=== PATIENT | female | born 1960 | race African-American/Black ===

== ENCOUNTER 2017-08-16 19:55 | Inpatient (IN) | payer MEDICARE, MEDICAID ==
[2017-08-16 21:47] LABS: #Basophils 0.1 thou/uL (0.0-0.2); #Eosinphils 0.2 thou/uL (0.0-0.7); #Lymphocytes 2.8 thou/uL (1.20-3.40); #Monocytes 1.4 thou/uL (0.11-0.59); #Neutrophils 6.9 thou/uL (1.40-6.50); %Basophils 0.5 % (0.0-1.0); %Eosinophils 1.5 % (0.0-10.0); %Lymphocytes 24.4 % (21.0-51.0); %Monocytes 12.3 % (0.0-10.0); %Neutrophils 61.3 % (42.0-75.0); Hemoglobin 9.5 g/dL (12.0-16.0); Hypochromia SLIGHT = 6-15 cells (100X) (0-5/hpf); MDiff Complete? YES; Mean Corpuscular HGB CONC 31.1 g/dL (32.0-36.0); Mean Platelet Volume 6.7 fL (7.4-10.4); Microcytosis SLIGHT = 6-15 cells (100X) (0-5/hpf); PLT Morphology Comment Appears Increased; Platelet Count 434 thou/uL (130-400); Red Blood Cell (RBC) Count 4.14 mill/uL (4.20-5.40); White Blood Cell (WBC) Count 11.3 thou/uL (4.8-10.8)
[2017-08-16 21:49] LABS: ALT (SGPT) Less than 7 U/L (8-55); AST (SGOT) 10 U/L (5-34); Albumin 3.3 g/dL (3.5-5.0); Alkaline Phosphatase 60 U/L (40-150); Anion Gap 18 mmol/L (10-20); BUN (Urea Nitrogen) 28 mg/dL (9.8-20.1); Bilirubin, Total 0.3 mg/dL (0.2-1.2); Calc. Creatinine Clearance 0 mL/min (70-130); Calcium 10.2 mg/dL (7.8-10.44); Carbon Dioxide 26 mmol/L (22-29); Chloride 96 mmol/L (98-107); Estimated GFR-MDRD 9; Globulin 5.3 g/dL (2.4-3.5); Glucose 112 mg/dL (70-105); Potassium 3.7 mmol/L (3.5-5.1); Protein, Total 8.6 g/dL (6.0-8.3); Sodium 136 mmol/L (136-145)
[2017-08-16 22:22] LABS: Bilirubin Negative (Negative); Blood, Urine Large (Negative); Clarity TURBID (Clear); Glucose, Urine (Dipstick) Negative (Negative); Leukocyte Large (Negative); Nitrite Negative (Negative); Protein, Urine (Dipstick) > or equal to 300 mg/dL (Neg-Trace); Specific Gravity, Urine 1.025 (1.002-1.036)
[2017-08-16 22:24] LABS: Bacteria/HPF 4+ HPF (None Seen)
[2017-08-16 22:26] LABS: Pathc Cast-AUWi Flag 618.96 (0-2.49); Yeast-AUWi Flag 1888.7 (0-25.0)
[2017-08-16 22:27] LABS: RBC/HPF GREATER THAN 50-TNTC HPF (0-3)
[2017-08-16 22:28] LABS: Hyaline Casts/LPF 4-6 HYALINE CAST LPF (0-3 Hyaline)
[2017-08-17] MEDS ORDERED: cloNIDine 0.1 MG TAB ONE (00:44)
[2017-08-17] MEDS ORDERED: cefTRIAXone\\ROCEPHIN 2 GM in Sodium Chloride 0.9% 100 ML IVPB SCH (00:45)
[2017-08-17] MEDS ORDERED: cefTRIAXone\\ROCEPHIN 1 GM, Syringe 0.4 ML in Sterile Water 9.6 ML SLOW IVP SCH ×2 (08:45→12:00)
--- NOTE | 2017-08-17 09:13 | CON ---
DATE OF CONSULTATION: 08/17/2017 HISTORY OF PRESENT ILLNESS: Ms. Amaro is a 56-year-old black female with ESRD, on maintenance hemod ialysis, and admitted for buttock pain She was found to have a ? abscess on that area. She is admit anni for further management. We are now being consulted for maintenance hemodialysis. I am at the [facility] now supervising her hemodialysis. Fluid removal is being done as tolerated. REVIEW OF SYSTEMS: No chest pain. Denies any fever or chills. No nausea, no vomiting, no diarrhea, no cough. No hematochezia. No joint pains, positive for buttock pain, no diplopia. No tremors, no asterixis. No hematochezia, no melena, no hematemesis. PAST MEDICAL HISTORY: 1. ESRD - on maintenance hemodialysis. 2. Hypertension. 3. ? Diabetes mellitus. 4. Hyperlipidemia. PAST SURGICAL HISTORY: 1. Status post hysterectomy. 2. Status post bilateral tubal ligation. 3. Status post hysterectomy. 4. Status post breast biopsy. 5. Status post AV fistula placement. 6. Status post cuffed dialysis catheter placement. SOCIAL HISTORY: The patient lives with her nephew and niece. Two children, both incarcerated. [place]. 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 No history of smoking, no alcohol intake. No IV drug abuse. Education; h igh school. Sedentary lifestyle. FAMILY HISTORY: Positive family history of ESRD. ALLERGIES: No known drug allergies. TRAUMA: None. IMMUNIZATIONS: Up to date. HOSPITALIZATIONS: Please see past medical history. MEDICATIONS: Lasix 20 mg p.r.n., losartan 25 mg once a day, vitamin D2 50,000 international units on ce a week. Ditropan 5 mg once a day, nifedipine 60 mg XL tab t.i.d., metoprolol succinate 50 mg once a day, Robaxin 500 mg p.r.n. PHYSICAL EXAMINATION: VITAL SIGNS: Blood pressure is noted at 205/98 - before BP meds, heart rate 83, respiratory rate 20, temperature 97.4, pulse ox 96%. GENERAL: Awake, alert, obese, comfortable. SKIN: Adequate turgor. HEENT: She has slightly pale conjunctivae, anicteric sclerae. NECK: No neck mass, no carotid bruits, no JVD. CHEST: No deformities. LUNGS: Clear breath sounds, no wheezing, no crackles. HEART: Normal sinus rhythm. No murmur, no gallops, no rubs. ABDOMEN: Globular, soft, nontender, no masses. EXTREMITIES: No edema, no deformities. NEUROLOGIC: Awake, oriented to 3 spheres. Moving all extremities. No tremors, no asterixis, no yumiko eli. Positive for ? of abscess/wound. LABORATORY: 08/16/2017 - Sodium 136, potassium 3.7, chloride 96, carbon dioxide 26, BUN 28, creatini ne 6.09, glucose 112, calcium is 10.2, albumin 3.3. White count 7.3, hemoglobin 9.5. ASSESSMENT AND PLAN: 1. End-stage renal disease, stable. We will continue current hemodialysis regimen. Fluid removal o nly as tolerated. Review of the last Kt/V suggests she is adequately dialyzed with the current dialy sis regimen. 2. Buttock abscess - on empiric IV antibiotics. Currently on ceftriaxone at 1 gram q.12h. I would suggest we decrease the ceftriaxone to 1 gram IV daily. Recheck base met and CBC in a.m.
[2017-08-17 10:27] VITALS: BMI 35.0
[2017-08-17 16:01] LABS: INR-International Normal Ratio 1.3
[2017-08-17] MEDS: Carvedilol 25 MG TAB PO SCH (17:12)
[2017-08-17] MEDS: Sevelamer Carbonate 800 MG TAB PO SCH (17:14)
[2017-08-17] MEDS: Warfarin Sodium 2.5 MG TAB PO SCH (17:14)
[2017-08-17] MEDS: Simvastatin 20 MG TAB PO SCH (20:51)
--- NOTE | 2017-08-17 22:56 | HP ---
DATE OF ADMISSION: 08/17/2017 REASON FOR ADMISSION/CHIEF COMPLAINT: Buttock pain. HISTORY OF PRESENT ILLNESS: Ms. Amaro is a 56-year-old -Citizen Of [place] female with past medical hi story of hypertension, end-stage renal disease, nonambulatory who came because of pain in the buttock area. The patient also says she developed pressure sores in the area few days ago. Pain is getting worse for the last few days. Pain is worse especially when she is lying on the back side. There is no history of any chest pain. No shortness of breath, no fever. The patient does have some abdomin al pain and increased urination and burning. The patient goes for dialysis 3 times a week and she cl aims she is taking her medications, but is not clear what she is taking. The patient was evaluated i n the ER, found to have urinary tract infection as well, and was started on Rocephin. The patient wa s also hypotensive. She is being admitted for further evaluation. PAST MEDICAL HISTORY: 1. Hypertension. 2. End-stage renal disease, on hemodialysis 3 times a week. 3. Noncompliant with medication. 4. History of cerebrovascular accident. 5. History of malignant hypertension in the family. PAST SURGICAL HISTORY: 1. Status post hysterectomy. 2. Status post cholecystectomy. 3. Status post breast biopsy. 4. Status post previous fistula placement. CURRENT MEDICATIONS: She is not clear what she is taking, but she is supposed to be on aspirin 81 mg daily, Coreg 25 b.i.d., Imdur 60 mg daily, Ditropan XL 5 mg daily, Renvela 2400 mg t.i.d., Zocor 20 mg daily, questionable whether she is on Coumadin 2.5 mg daily. ALLERGIES: No known drug allergies. FAMILY HISTORY: Nothing of interest. SOCIAL HISTORY: The patient lives with family. No history of smoking. No history of alcohol intake . REVIEW OF SYSTEMS: Cardiovascular: No chest pain. No shortness of breath. Respiratory: No fever or cough. Gastrointestinal: No nausea, vomiting. Has abdominal pain. Genitourinary: No dysuria o r hematuria. Central Nervous System: No headache. No dizziness. PHYSICAL EXAMINATION: GENERAL: The patient is alert, awake, oriented x2. VITAL SIGNS: Temperature 98, pulse 89, respirations 23, blood pressure 218/97. HEENT: Head is normocephalic, atraumatic. Pupils are equal and reactive to light. Nasopharynx is p oskar and dry. Hard and soft palate, no lesions seen. SKIN: Skin turgor decreased. NECK: Supple. No JVD. LUNGS: Bilateral air entry present. No rales, no rhonchi. HEART: S1, S2 regular. ABDOMEN: Soft. Tenderness in the area. No guarding, no rigidity. Bowel sounds present. RECTAL: Deferred. EXTREMITIES: Power 4/5 in both upper extremities, 2/5 in both lower extremities. Deep tendon reflex es 2+ bilaterally. Plantars downgoing. Sensory intact. LABORATORY AND X-RAY FINDINGS: CBC shows WBC 11, hemoglobin 9.5, hematocrit 30, platelets 434. [place] bolic panel: Sodium 136, potassium 3.7, chloride 96, CO2 of 10, BUN 28, creatinine 6, glucose 112. Urinalysis showed wbc greater than 50, bacteria 4+, rbc greater than 50. Chest x-ray not done. EKG shows normal sinus rhythm, no acute ST-T wave changes seen. ASSESSMENT: 1. Urinary tract infection, rule out sepsis. 2. Pressure ulcers in both buttocks, stage 2. 3. Hypertension, uncontrolled. 4. End-stage renal disease, on hemodialysis. 5. Anemia. 6. History of cerebrovascular accident. PLAN: 1. Vital signs q.4 hours. 2. Activity: As tolerated. 3. Allergies: NKDA. 4. Hep-Lock. 5. Rocephin 1 gram IV piggyback daily. 6. Continue home medications. 7. Hemodialysis. 8. Wound care team consult. 9. Physical therapy consult. 10. Echocardiogram.
[2017-08-18 05:09] LABS: #Basophils 0.1 thou/uL (0.0-0.2); #Eosinphils 0.2 thou/uL (0.0-0.7); #Lymphocytes 2.6 thou/uL (1.20-3.40); #Monocytes 1.3 thou/uL (0.11-0.59); #Neutrophils 5.5 thou/uL (1.40-6.50); %Basophils 0.6 % (0.0-1.0); %Eosinophils 1.6 % (0.0-10.0); %Lymphocytes 27.2 % (21.0-51.0); %Monocytes 13.8 % (0.0-10.0); %Neutrophils 56.9 % (42.0-75.0); Hemoglobin 8.5 g/dL (12.0-16.0); Mean Corpuscular HGB CONC 30.1 g/dL (32.0-36.0); Mean Corpuscular Hemoglobin 22.6 pg (27.0-31.0); Mean Corpuscular Volume 75.1 fl (81.0-99.0); Mean Platelet Volume 7.1 fL (7.4-10.4); Platelet Count 395 thou/uL (130-400); Red Blood Cell (RBC) Count 3.75 mill/uL (4.20-5.40); White Blood Cell (WBC) Count 9.6 thou/uL (4.8-10.8)
[2017-08-18 05:16] LABS: INR-International Normal Ratio 1.2; Prothrombin Time 15.6 SEC (12.0-14.7)
[2017-08-18 05:24] LABS: Anion Gap 16 mmol/L (10-20); BUN (Urea Nitrogen) 26 mg/dL (9.8-20.1); Calc. Creatinine Clearance 16 mL/min (70-130); Calcium 9.8 mg/dL (7.8-10.44); Carbon Dioxide 29 mmol/L (22-29); Chloride 95 mmol/L (98-107); Estimated GFR-MDRD 10; Glucose 99 mg/dL (70-105); Potassium 3.9 mmol/L (3.5-5.1); Sodium 136 mmol/L (136-145)
[2017-08-18] MEDS: Carvedilol 25 MG TAB PO SCH ×2 (08:07→18:04)
[2017-08-18] MEDS: Sevelamer Carbonate 800 MG TAB PO SCH ×3 (08:07→18:04)
[2017-08-18] MEDS: Aspirin 81 mg Enteric Coated Tablet PO SCH (08:08)
[2017-08-18] MEDS: cefTRIAXone\\ROCEPHIN 1 GM, Syringe 0.4 ML in Sterile Water 9.6 ML SLOW IVP SCH (11:10)
[2017-08-18] MEDS: Oxybutynin 5 MG TAB PO SCH (11:17)
[2017-08-18] MEDS: Warfarin Sodium 2.5 MG TAB PO SCH (18:07)
--- NOTE | 2017-08-18 19:03 | EKG ---
Test Reason : Blood Pressure : / mmHG Vent. Rate : 085 BPM Atrial Rate : 085 BPM P-R Int : 174 ms QRS Dur : 102 ms QT Int : 394 ms P-R-T Axes : 026 -06 114 degrees QTc Int : 468 ms Normal sinus rhythm Left ventricular hypertrophy with repolarization abnormality Abnormal ECG Confirmed by ARELIS MAYER, BHANU ([id number]), film editor SURYA SANCHEZ ([id number]) on 08/18/2017 7:02:34 PM Referred By: Confirmed By:BHANU INFANTE MD
[2017-08-18] MEDS: Simvastatin 20 MG TAB PO SCH (20:13)
[2017-08-19 04:45] LABS: INR-International Normal Ratio 1.2; Prothrombin Time 15.6 SEC (12.0-14.7)
[2017-08-19] MEDS: Sevelamer Carbonate 800 MG TAB PO SCH ×3 (09:23→17:30)
[2017-08-19] MEDS: Oxybutynin 5 MG TAB PO SCH (09:23)
[2017-08-19] MEDS: Carvedilol 25 MG TAB PO SCH ×2 (09:23→17:31)
[2017-08-19] MEDS: Aspirin 81 mg Enteric Coated Tablet PO SCH (09:23)
[2017-08-19] MEDS: cefTRIAXone\\ROCEPHIN 1 GM, Syringe 0.4 ML in Sterile Water 9.6 ML SLOW IVP SCH (09:35)
[2017-08-19] MEDS: Warfarin Sodium 2.5 MG TAB PO SCH (17:30)
[2017-08-19] MEDS: Simvastatin 20 MG TAB PO SCH (20:28)
[2017-08-20 05:04] LABS: #Eosinphils 0.2 thou/uL (0.0-0.7); #Lymphocytes 2.2 thou/uL (1.20-3.40); #Neutrophils 7.1 thou/uL (1.40-6.50); %Basophils 0.4 % (0.0-1.0); %Eosinophils 1.9 % (0.0-10.0); %Lymphocytes 21.1 % (21.0-51.0); %Monocytes 9.4 % (0.0-10.0); %Neutrophils 67.2 % (42.0-75.0); Hemoglobin 7.7 g/dL (12.0-16.0); Mean Corpuscular HGB CONC 31.2 g/dL (32.0-36.0); Mean Corpuscular Hemoglobin 22.5 pg (27.0-31.0); Mean Corpuscular Volume 72.3 fl (81.0-99.0); Mean Platelet Volume 6.8 fL (7.4-10.4); Platelet Count 381 thou/uL (130-400); RBC Distribution Width 13.8 % (11.5-14.5); White Blood Cell (WBC) Count 10.5 thou/uL (4.8-10.8)
[2017-08-20 05:08] LABS: INR-International Normal Ratio 1.2; Prothrombin Time 15.2 SEC (12.0-14.7)
[2017-08-20 05:18] LABS: Anion Gap 16 mmol/L (10-20); BUN (Urea Nitrogen) 49 mg/dL (9.8-20.1); Calc. Creatinine Clearance 10 mL/min (70-130); Calcium 9.3 mg/dL (7.8-10.44); Carbon Dioxide 27 mmol/L (22-29); Chloride 94 mmol/L (98-107); Estimated GFR-MDRD 6; Glucose 115 mg/dL (70-105); Potassium 3.4 mmol/L (3.5-5.1); Sodium 134 mmol/L (136-145)
[2017-08-20 07:15] VITALS: BP 145/68; TEMP 99
[2017-08-20] MEDS: Carvedilol 25 MG TAB PO SCH (07:15)
[2017-08-20] MEDS: Aspirin 81 mg Enteric Coated Tablet PO SCH (07:15)
[2017-08-20] MEDS: Oxybutynin 5 MG TAB PO SCH (07:15)
[2017-08-20] MEDS: Sevelamer Carbonate 800 MG TAB PO SCH ×2 (07:15→14:42)
[2017-08-20] MEDS: cefTRIAXone\\ROCEPHIN 1 GM, Syringe 0.4 ML in Sterile Water 9.6 ML SLOW IVP SCH (10:05)
[2017-08-20] MEDS ORDERED: cefTRIAXone\\ROCEPHIN 1 GM, Syringe 0.4 ML in Sterile Water 9.6 ML SLOW IVP SCH (12:00)
--- NOTE | 2017-08-20 13:25 | PRG ---
DATE OF SERVICE: 08/20/2017 RENAL MEDICINE SUBJECTIVE: Ms. Amaro is a 56-year-old black female with ESRD and currently on maintenance hemodial ysis. I am at the bedside supervising her dialysis. She is tolerating said treatment. No other com plaints, no chest pain or shortness of breath. PHYSICAL EXAMINATION: VITAL SIGNS: Blood pressure 145/68, heart rate 79, respiratory rate 18, temperature 99, pulse ox 95% . GENERAL: Awake, alert, comfortable, not in distress. SKIN: Adequate turgor. HEENT: Slightly pale conjunctivae, anicteric sclerae. NECK: No neck mass, no carotid bruits, no JVD. CHEST: No deformities. LUNGS: Clear breath sounds. HEART: Normal sinus rhythm. No murmur, no gallops, no rubs. ABDOMEN: Globular, soft, nontender, no masses. EXTREMITIES: No edema, no deformities. MEDICATIONS: Of 08/20/2014 reviewed. LABORATORY DATA: 08/20/2017, white count 10.5, hemoglobin 7.7. Sodium 134, potassium 3.4, chloride 94, carbon dioxide 27, BUN 49, creatinine 8.43, glucose 115, calcium 9.3. ASSESSMENT AND PLAN: 1. Mild hyperkalemia, adjust potassium in the dialysis bath. 2. Anemia. Start Epogen 7500 units subcutaneously every week. 3. End-stage renal disease, stable. Tolerating current hemodialysis regimen. Continue Sunday, esday, Sunday hemodialysis. Overall, agree with current management. Patient for possible renal transplant.
[2017-08-20] MEDS ORDERED: Epoetin (ESRD) 20,000 UNITS/ML SC SCH (14:00)
== END 2017-08-20 16:46 | DRG 592 ==
LOC: ERS 19:55 → T4-B 08-17 01:34 → OBSVTOIN 08-17 15:09
PROVIDERS: ADMIT Internal Medicine; ATTEND Internal Medicine
PROC: 5A1D70Z Performance of Urinary Filtration, Intermittent, Less than 6 Hours Per Day (ICD-10-PCS; principal; 2017-08-17)
PROC: 5A1D70Z Performance of Urinary Filtration, Intermittent, Less than 6 Hours Per Day (ICD-10-PCS; 2017-08-20)
DX: L89.312 Pressure ulcer of right buttock, stage 2 (principal); N18.6 End stage renal disease; L89.322 Pressure ulcer of left buttock, stage 2; I12.0 Hypertensive chronic kidney disease with stage 5 chronic kidney disease or end stage renal disease; E87.5 Hyperkalemia; N39.0 Urinary tract infection, site not specified; L02.31 Cutaneous abscess of buttock; Z91.14 Patient's other noncompliance with medication regimen; Z86.73 Personal history of transient ischemic attack (TIA), and cerebral infarction without residual deficits; Z79.82 Long term (current) use of aspirin; Z99.2 Dependence on renal dialysis; I25.2 Old myocardial infarction; E78.5 Hyperlipidemia, unspecified; F32.9 Major depressive disorder, single episode, unspecified; D63.1 Anemia in chronic kidney disease
CPT/HCPCS: 36415; 51701; 80048; 80053; 81003; 81015; 84443; 85025; 85610; 87077; 87086; 87186; 90935; 93005; 93306; 94760; 96365; A4216; A4353; G0257; G8978-GP-CM; G8979-GP-CK; J0696; J7050; Q4081

== ENCOUNTER 2017-09-12 18:24 | Inpatient (IN) | payer MEDICAID, MEDICARE ==
--- NOTE | 2017-09-12 20:32 | CT ---
CT HEAD WITHOUT CONTRAST: 09/12/17 Multiple axial tomograms obtained through the head without IV enhancement. HISTORY: Mental status change. Comparison made to prior CT head dated 10/30/12 and an MRI of brain dated 11/01/12. Those exams reveal diffuse white matter abnormalities seen throughout both cerebral hemispheres with edema. Vascular etiology such as PRES was considered at that time. There have been no interval scans since those studies at this institution. On today's exam, the ventricles have normal size and position. There is bilateral white matter hypode nsity which probably represents sequela of the prior process. This has the appearance of chronic whit e matter change possibly ischemic are related to the prior insult. There is no evidence of acute hemo rrhage or mass. No evidence of acute cortical infarct. IMPRESSION: Bilateral white matter hypodensity which is probably chronic as described above. No evidence of acute process identified. POS: AGW
[2017-09-12 21:01] LABS: #Eosinphils 0.1 thou/uL (0.0-0.7); #Lymphocytes 2.1 thou/uL (1.20-3.40); #Monocytes 1.6 thou/uL (0.11-0.59); #Neutrophils 7.4 thou/uL (1.40-6.50); %Basophils 0.2 % (0.0-1.0); %Eosinophils 0.7 % (0.0-10.0); %Lymphocytes 18.7 % (21.0-51.0); %Monocytes 14.6 % (0.0-10.0); %Neutrophils 65.8 % (42.0-75.0); Hemoglobin 8.7 g/dL (12.0-16.0); Mean Corpuscular Volume 76.7 fl (81.0-99.0); Mean Platelet Volume 7.2 fL (7.4-10.4); Platelet Count 430 thou/uL (130-400); RBC Distribution Width 17.1 % (11.5-14.5); Red Blood Cell (RBC) Count 3.77 mill/uL (4.20-5.40); White Blood Cell (WBC) Count 11.2 thou/uL (4.8-10.8)
[2017-09-12 21:06] LABS: PTT 36.7 SEC (22.9-36.1)
[2017-09-12 21:10] LABS: INR-International Normal Ratio 1.4; Prothrombin Time 17.4 SEC (12.0-14.7)
[2017-09-12 21:18] LABS: ALT (SGPT) 9 U/L (8-55); AST (SGOT) 11 U/L (5-34); Albumin 3.4 g/dL (3.5-5.0); Alkaline Phosphatase 83 U/L (40-150); Anion Gap 17 mmol/L (10-20); BUN (Urea Nitrogen) 16 mg/dL (9.8-20.1); Bilirubin, Total 0.5 mg/dL (0.2-1.2); Calc. Creatinine Clearance 0 mL/min (70-130); Calcium 10.1 mg/dL (7.8-10.44); Carbon Dioxide 27 mmol/L (22-29); Chloride 96 mmol/L (98-107); Estimated GFR-MDRD 11; Globulin 4.9 g/dL (2.4-3.5); Glucose 107 mg/dL (70-105); Potassium 3.7 mmol/L (3.5-5.1); Protein, Total 8.3 g/dL (6.0-8.3); Sodium 136 mmol/L (136-145)
[2017-09-12] MEDS ORDERED: Pantoprazole 40 MG VIAL ONE (23:44)
[2017-09-13] MEDS ORDERED: Dextrose 5 % And 0.9 % NaCl 1,000 ML IV SCH (01:15)
[2017-09-13 10:45] LABS: Bilirubin Moderate (Negative); Blood, Urine Large (Negative); Glucose, Urine (Dipstick) Negative (Negative); Leukocyte Large (Negative); Nitrite Positive (Negative); Protein, Urine (Dipstick) > or equal to 300 mg/dL (Neg-Trace); Urobilinogen 0.2 mg/dL (0.2-1.0)
[2017-09-13 10:48] LABS: Clarity Opaque (Clear)
[2017-09-13 10:53] LABS: Bacteria/HPF 4+ HPF (None Seen); RBC/HPF GREATER THAN 50-TNTC HPF (0-3); Specific Gravity, Urine 1.023 (1.002-1.036); Squamous Epithelial 0-3 HPF (0-3)
[2017-09-13 10:54] LABS: Hyaline Casts/LPF NONE SEEN LPF (0-3 Hyaline)
[2017-09-13] MEDS: cefTRIAXone\\ROCEPHIN 2 GM in Sodium Chloride 0.9% 100 ML IVPB SCH (11:33)
[2017-09-13] MEDS ORDERED: GoLYTELY 4,000 ml Bottle PO SCH (17:00)
--- NOTE | 2017-09-13 17:01 | CON ---
DATE OF CONSULTATION: 09/13/2017 CONSULTING PHYSICIAN: Law Parish M.D. REQUESTING PHYSICIAN: Jamie Torres M.D. REASON FOR CONSULTATION: The need for maintenance hemodialysis and complicated urinary tract infecti on. IMPRESSION: 1. End-stage renal disease, on hemodialysis Sunday, Sunday, Sunday. 2. Complicated urinary tract infection, possibly with colovesical fistula. 3. Generalized weakness in the context of #2. PLAN: 1. Broad spectrum antibiotics. 2. Urology consultation to evaluate the urogenital anatomy for any potential structural reason why t his patient keep having recurrent urinary tract infections including but not limited to possible colo vesical fistula. 3. Renal replacement therapy (hemodialysis) per patient's schedule. No emergent indication for hemo dialysis today. HISTORY OF PRESENT ILLNESS: This is a 57-year-old female patient who has end-stage renal disease, he modialysis dependent on a Sunday, Sunday, Sunday, who presented here with weakness. Clinical eval uation revealed the presence of another severe urinary tract infection. Of note, the patient just la st month was treated for severe urinary tract infection with broad spectrum antibiotics and re-presen anni here again obvious compliant significant for urinary tract infection. The urine sample seems to be very gross with possibility of contamination. Digestive tract material raising the possibility of a colovesical fistula. PAST MEDICAL HISTORY: End-stage renal disease, hemodialysis dependent, hypertension, diabetes, strok e, dyslipidemia. MEDICATIONS: Reviewed and as documented on [facility]. ALLERGIES: No known drug allergies. FAMILY HISTORY: None related to presenting illness. SOCIAL HISTORY: Denies alcohol, tobacco or illicit drug use. REVIEW OF SYSTEMS: As documented in the body of the history. All the other systems reviewed and fou nd not to be significantly related to presenting illness. PHYSICAL EXAMINATION: GENERAL: The patient was found to be ill-looking noted with the following. VITAL SIGNS: Afebrile with temperature 98.9, pulse 81, respiration rate of 15, O2 sat 98% with blood pressure 159/72. HEENT: Unremarkable with moist oral mucosa. Neck is supple. No conjunctival injection or icterus. CARDIOVASCULAR SYSTEM: First and second heart sounds were heard. RESPIRATORY SYSTEM: Clear to auscultation. DIGESTIVE SYSTEM: Revealed a benign abdomen with positive bowel sounds. EXTREMITIES: No peripheral edema. SKIN: No new gross rash. LYMPHATICS: No peripheral lymphadenopathy. SUMMARY: In summary, this 57-year-old female patient with end-stage renal disease who presented here with weakness and now being diagnosed with recurrent urinary tract infection.
[2017-09-13 17:50] LABS: ALT (SGPT) 11 U/L (8-55); AST (SGOT) 12 U/L (5-34); Albumin 3.3 g/dL (3.5-5.0); Alkaline Phosphatase 83 U/L (40-150); Anion Gap 14 mmol/L (10-20); BUN (Urea Nitrogen) 25 mg/dL (9.8-20.1); Bilirubin, Total 0.4 mg/dL (0.2-1.2); Calc. Creatinine Clearance 13 mL/min (70-130); Calcium 10.2 mg/dL (7.8-10.44); Carbon Dioxide 30 mmol/L (22-29); Chloride 95 mmol/L (98-107); Estimated GFR-MDRD 8; Glucose 125 mg/dL (70-105); Potassium 4.6 mmol/L (3.5-5.1); Protein, Total 8.3 g/dL (6.0-8.3); Sodium 134 mmol/L (136-145)
[2017-09-13 18:58] LABS: Anisocytosis SLIGHT = 6-15 cells (100X) (0-5/hpf); Band 19 % (5-11); Eosinophils 3 % (0-10); Hemoglobin 7.9 g/dL (12.0-16.0); Hypochromia SLIGHT = 6-15 cells (100X) (0-5/hpf); Lymphocytes 14 % (21-51); MDiff Complete? YES; Mean Corpuscular Hemoglobin 23.5 pg (27.0-31.0); Mean Corpuscular Volume 75.9 fl (81.0-99.0); Mean Platelet Volume 6.7 fL (7.4-10.4); Microcytosis SLIGHT = 6-15 cells (100X) (0-5/hpf); Monocytes 7 % (0-10); Neutrophil 56 % (42-75); Ovalocytes SLIGHT = 2-5 cells (100X) (0-1/hpf); PLT Morphology Comment Appears Increased; Platelet Count 439 thou/uL (130-400); Polychromasia SLIGHT = 2-3 cells (100X) (0-2/hpf); RBC Distribution Width 16.7 % (11.5-14.5); Reactive Lymphocytes 1 % (0-10); Red Blood Cell (RBC) Count 3.38 mill/uL (4.20-5.40); Target Cells SLIGHT = 2-5 cells (100X) (0-1/hpf); White Blood Cell (WBC) Count 10.8 thou/uL (4.8-10.8)
[2017-09-13] MEDS: Estrogens, Conjugated 30 GM TUBE VAG SCH (21:04)
[2017-09-13] MEDS: Carvedilol 25 MG TAB PO SCH (21:05)
[2017-09-13] MEDS: Simvastatin 20 MG TAB PO SCH (21:05)
--- NOTE | 2017-09-14 01:12 | CON ---
DATE OF CONSULTATION: 09/13/2017 REASON FOR CONSULTATION: 1. Recurrent urinary tract infection. 2. Concerns for possible colovesical fistula. HISTORY OF PRESENT ILLNESS: Ms. Camille Amaro is a pleasant 57-year-old -[place] female pat ient with a history of past stroke with resulting right-sided weakness. She is admitted through the emergency department today with a new weakness. The patient reports she is having some weakness in h er left lower extremity today which she thinks is a new finding. This seems to have been progressive since she was left home from rehabilitation. The patient is a hemodialysis patient and has a shunt in her left arm for that. The patient has been in the hospital at least 3 times in the last year wit h urinary tract infections. Two of these have cultured out an E. coli with the same pattern suggesti ng a possible reservoir. The patient apparently has dirty or smelly urine. She is on hemodialysis a nd produces a small amount of urine each day. It is not uncommon for a patient lying supine to have poor emptying and a layering of her urine. It is unclear whether this patient with diabetes is actua lly having some degree of urinary retention which really has not been established. Ms. Amaro acts as a partial historian. She is a little slow on some of her responses and her sister acts as a partial historian as well. ALLERGIES: No known drug allergies. OUTPATIENT MEDICATION REGIMEN: Includes the followin. Lasix 20 mg p.o. daily. 2. Losartan 25 mg p.o. daily. 3. Vitamin D2 of 50,000 units orally once a week. 4. Ditropan 5 mg orally daily. 5. Nifedipine 60 mg twice daily. 6. Metoprolol 50 mg orally daily. 7. Methocarbamol 500 mg oral daily. FAMILY MEDICAL HISTORY: The patient's parents are both . Her mother had end-stage renal dis ease secondary to hypertension by the patient's sister's report. 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 She has no personal history of cigarette smoking. Does not consume alcohol. She is cared for by her family, primarily her sister and her nephew. REVIEW OF SYSTEMS: Cardiovascular: Patient does not have current chest pain or shortness of breath. Pulmonary: No complaints of cough. Gastrointestinal: No complaints of nausea or vomiting. Her l ast bowel movement reportedly was this morning. She does have a history of hemorrhoids which cause p eriodic per rectum bleeding. There is no current abdominal pain or discomfort. Skin: The patient h as had recent decubitus ulcers on her buttocks which have healed. Genitourinary: The patient denies dysuria or hematuria. She does report producing a small amount of urine every day. I will try to g et some quantitation on this and the patient's sister reports that she might produce a cup or 2 per d ay, sometimes maybe 3 changes of diapers per day due to that. PHYSICAL EXAMINATION: VITAL SIGNS: Current temperature 98.9, pulse 81, respirations 15, O2 saturations 98%, blood pressure is 159/72. HEENT: Extraocular movements are intact. Sclerae are anicteric. Oropharynx is clear. NECK: Supple. LUNGS: Clear to auscultation bilaterally. CARDIAC: There is a holosystolic ejection murmur of grade 3. EXTREMITIES: Notable for a left arm AV fistula in the upper arm. This is dressed appropriately afte r recent access. There is some edema of the right arm. The patient has reasonable hand strength in both the left and right arm. Lower extremities: The patient is able to move her feet and wiggle her toes but is not able to raise either leg from the bed for me today. ABDOMEN: Soft and nontender. There is a right-sided subcostal surgical incisional scar which is wel l healed, consistent with a history of open cholecystectomy. The patient reports a previous transabd ominal hysterectomy with bilateral salpingo-oophorectomy. PELVIC: The patient's estrinization is fair to poor secondary to low estrogen status. Urethral meat us appears normal. There is no gross bleeding per urethra. The patient has some blood in her vagina at the time of examination and it is unclear if this is actually vaginal in origin. Palpation of th e vaginal luna and the vaginal cavity find no foreign objects. The patient's rectum is clear. Ther e does not appear to be any current stool present. There are bilateral decubiti which are in the hea ling phase at this point. There is no current or new decubiti present. NEUROLOGIC: The patient appears to have chronic fixed weakness of the right arm and right leg. The patient is reporting new weakness of her left leg. PAST MEDICAL HISTORY: 1. End-stage renal disease secondary to hypertension, currently on hemodialysis. 2. Recurrent urinary tract infection with E. coli having resistance to ciprofloxacin and ampicillin x2. 3. Hypertension, poorly controlled. 4. History of cerebrovascular accident with resulting right-sided deficits. PAST SURGICAL HISTORY: 1. Status post hysterectomy total with bilateral salpingo-oophorectomy. 2. Previous history of bilateral tubal ligation. 3. Status post open cholecystectomy. 4. History of breast biopsy. 5. Left arm fistula placement. LABORATORY AND X-RAY FINDINGS: Microbiology: The patient has had 2 previous cultures, one on 2017 and the prior one on 02/03/2016 which isolated a very similar E. coli with resistance to ciprofl oxacin, Levaquin, and ampicillin. None of her previous blood cultures have grown anything. All of h er culture work on this admission is from 09/12/2017 at about 8:00 p.m. and these have not so far shona wn organisms. A stool occult blood test is positive for fecal occult blood suggesting possible sourc e for the patient's perivaginal blood clots. LABORATORY DATA: Admission white blood cell count was 11,200 down to 10,800 today. There were 65.8% neutrophils yesterday down to 56% neutrophils today. There are 19% bands on today's manual differen tial. Serum chemistry showed the patient's current blood urea nitrogen of 25, creatinine of 6.6. Ur inalysis on 09/13/2017 showed urine with a brown opaque color, urine gravity 1.023, urine protein gre ater than 300, trace amount of ketones, large amount of blood, positive for nitrite and greater than 50 red cells per high power field with greater than 50 white cells per high power field and 4+ urine bacteria. ASSESSMENT AND PLAN: 1. Pyocystis likely secondary to use of Detrol, diabetes and low urine output. It is unclear if thi s patient's bladder emptying is normal. I would suspect not. Long dwell time is within the bladder may increase the risk of developing urinary tract infection. 2. Recurrent urinary tract infection, most likely origin of this is ascending urinary tract infectio n from below with colonization of the vagina and introitus with fecal organisms from the rectum. The patient does lay supine in bed and is more or less a set up for recurrent urinary tract infection wi thout having to invoke a colovesical fistula. The patient does not report passing gas per urethra or food particles in her urine. This may be a little bit difficult to determine given her relative lac k of mobility. There is no report of urinary food particles or gas by family members and no imaging studies to support a colovesical fistula at this point. At the present time, this fits the pattern o f a colonization of the introitus and vagina by E. coli with a resistance to ciprofloxacin, fluoroqui nolones and ampicillin. I recommend application of Estrace cream to the urethra and vagina on nightl y basis and should be continued for life. 3. Risks and benefits of estrogen therapy. We discussed the topical application of estrogen cream t o the urethra and vagina has very minimal risks. The patient does have a history of stroke possibly x2 with this new presentation of weakness and in addition previous breast biopsy. There is essential ly no systemic absorption of topically applied estrogens and this should be safe with her particular setting. 4. New onset of stroke symptoms. The patient has new onset weakness in her left lower extremity, wh ich she reports is a new finding and new difficulty for her. This suggests some type of stroke or TI A-type event has resulted in temporary dysfunction of the left lower extremity. Total assessment and evaluation time on this initial hospital visit with this patient is over 80 jass ajit including evaluation and discussion with the family in coordination with nursing staff.
[2017-09-14 05:58] LABS: Anion Gap 18 mmol/L (10-20); BUN (Urea Nitrogen) 30 mg/dL (9.8-20.1); Calc. Creatinine Clearance 12 mL/min (70-130); Calcium 9.6 mg/dL (7.8-10.44); Carbon Dioxide 27 mmol/L (22-29); Chloride 94 mmol/L (98-107); Estimated GFR-MDRD 7; Glucose 112 mg/dL (70-105); Potassium 4.2 mmol/L (3.5-5.1); Sodium 135 mmol/L (136-145)
[2017-09-14 05:58] LABS: Anisocytosis SLIGHT = 6-15 cells (100X) (0-5/hpf); Band 2 % (5-11); Eosinophils 1 % (0-10); Hemoglobin 7.8 g/dL (12.0-16.0); Hypochromia SLIGHT = 6-15 cells (100X) (0-5/hpf); Lymphocytes 18 % (21-51); MDiff Complete? YES; Mean Corpuscular HGB CONC 28.9 g/dL (32.0-36.0); Mean Corpuscular Hemoglobin 22.1 pg (27.0-31.0); Mean Corpuscular Volume 76.7 fl (81.0-99.0); Mean Platelet Volume 7.6 fL (7.4-10.4); Microcytosis SLIGHT = 6-15 cells (100X) (0-5/hpf); Monocytes 12 % (0-10); Neutrophil 65 % (42-75); PLT Morphology Comment Appears Increased; Platelet Count 398 thou/uL (130-400); RBC Distribution Width 16.8 % (11.5-14.5); Reactive Lymphocytes 2 % (0-10); Red Blood Cell (RBC) Count 3.54 mill/uL (4.20-5.40); White Blood Cell (WBC) Count 10.6 thou/uL (4.8-10.8)
[2017-09-14] MEDS ORDERED: GoLYTELY 4,000 ml Bottle PO SCH (06:00)
--- NOTE | 2017-09-14 08:24 | HP ---
DATE OF ADMISSION: 09/12/2017 REASON FOR ADMISSION AND CHIEF COMPLAINT: Weakness and GI bleeding. HISTORY OF PRESENT ILLNESS: Ms. Amaro is a 57-year-old Afro-[place] female with past medical histo ry of end-stage renal disease, on hemodialysis; hypertension; recently discharged from rehab about 3 days ago; came with weakness. The patient has been complaining of weakness since she came from the [facility] and they noticed rectal bleeding. The patient also not being well and not eating well and has l ost weight as well. The patient was also treated for a urinary bladder infection recently when she w as in the hospital a few weeks ago. So, in view of the bleeding and weakness, the patient was arlette t to the emergency room where she was evaluated. The patient noted to have low-grade fever as well a nd urinalysis was not done. The patient was given Protonix and admitted for further evaluation and m anagement. PAST MEDICAL HISTORY: 1. Hypertension. 2. End-stage renal disease, on hemodialysis. 3. History of CVA. 4. History of malignant hypertension in the family. 5. Recent urinary tract infection. 6. Unstable gait, recent admission to rehab. PAST SURGICAL HISTORY: Status post hysterectomy, status post cholecystectomy, status post breast bio psy, and status post previous AV fistula placement. CURRENT MEDICATIONS: The patient is on Ditropan XL 5 mg daily, Renvela 2400 mg t.i.d., simvastatin 2 0 mg daily, Coreg 25 b.i.d., aspirin 81 mg daily. ALLERGIES: No known drug allergies. FAMILY HISTORY: Nothing of interest. SOCIAL HISTORY: The patient lives with family. No history of smoking. No history of alcohol intake . REVIEW OF SYSTEMS: Cardiovascular: No chest pain. No shortness of breath. Respiratory: No fever or cough. Gastrointestinal: Has GI bleeding and some abdominal pain. Central Nervous System: No h eadache. Feels dizzy and weak. PHYSICAL EXAMINATION: GENERAL: The patient is alert, awake, and oriented x2. VITAL SIGNS: Temperature 98, pulse 89, respiratory rate 18, blood pressure 130/70. HEENT: Head is normocephalic and atraumatic. Pupils are equal and reactive. Nasopharynx is pale an d dry. Hard and soft palate, no lesions seen. SKIN: Turgor decreased. NECK: Supple. No JVD. LUNGS: Bilateral air entry present, no rales, no rhonchi. HEART: S1, S2 regular. ABDOMEN: Soft. No distention. No tenderness. Normal bowel sounds present. RECTAL: Deferred. CENTRAL NERVOUS SYSTEM: No new deficit. LABORATORY AND X-RAY FINDINGS: CBC shows WBC 11, hemoglobin 8.7, hematocrit 28, platelets 430. Prot hrombin time 17, INR 1.1. Metabolic panel: Sodium 136, potassium 3.7, chloride 97, CO2 of 27, urea nitrogen 16, creatinine 4.75. Urinalysis showed wbc's greater than 50, rbc's greater than 50, bacter ia 4+, nitrite positive, blood large. Head CT, negative. Chest x-ray, not done. EKG, not done. ASSESSMENT: 1. Possible rectal bleeding. 2. Severe urinary tract infection. 3. Weakness and dizziness, unstable gait. 4. Anemia, chronic. 5. Hypertension. 6. Status post cerebrovascular accident. 7. End-stage renal disease . PLAN: 1. Vital signs q.4 hours. 2. Activity: As tolerated. 3. Allergies: No known drug allergies. 4. Hep-Lock. 5. Rocephin 2 grams IV piggyback daily. 6. Urine cultures. 7. GI consult. 8. Continue home medications. 9. Nephrology consult. 10. Diet: Renal. 11. Urology consult.
[2017-09-14] MEDS: Carvedilol 25 MG TAB PO SCH ×2 (08:38→22:43)
[2017-09-14] MEDS: Sevelamer Carbonate 800 MG TAB PO SCH ×3 (08:38→19:18)
--- NOTE | 2017-09-14 11:05 | CON ---
DATE OF CONSULTATION: 09/13/2017 REFERRING PHYSICIAN: Dr. Jamie Torres. REASON FOR CONSULTATION: Hematochezia, anemia due to blood loss. HISTORY OF PRESENT ILLNESS: Ms. Camille Amaro is a 56-year-old -Bangladeshi female with chronic kidney disease on dialysis 3 times a week. The patient was hospitalized recently in the hospital be cause of UTI. Apparently has history of recurrent UTI. The patient was in the rehab and was dischar ged home on Sunday. The patient went for dialysis yesterday and subsequently [facility]. The patient appears very weak. She is not a good historian. Most of the history is obtained from talking to the patient's sister. The patient's sister tells me over the la st 24 to 48 hours, she has been feeling very good and also not eating very well. She also has some a ltered mental status yesterday. She was brought to the ER because of altered mental status and hemat ochezia. The patient had a CT scan of the head, which was done for any acute pathology. She was alw ays anemic from chronic kidney disease. Apparently, in the last admission, she had anemia and the bl ood count is from 8.7 to around 9. On 08/21/2017 the last admission, the hemoglobin was 7.6, hematoc rit 34.5. Last night, the hemoglobin 8.7 and hematocrit 28.9. I spoke to the nurses and the nurses tell me since admission, she has had no hematochezia. The patient's sister tells me that patient pas sed very large amount of blood clots and fresh blood yesterday. As per the nurses in the floor, [facility] admission, the patient has no hematochezia. However, the urine looks dark and brown and the nurse told me that some mostly diffuse material. However, upon asking the patient, the patient denies any hematuria or passing any stool during urination. The urinalysis does show a paucity leukocyte estera se and also multiple wbc's suggestive of UTI. The patient has no prior history of rectal bleeding. No history of melena. The patient's bowel movements fairly regular and she . There is no prior history of hematochezia. The patient is undergoing a colonoscopy. She has no relevant history. ALLERGIES: No drug allergies. MEDICAL ILLNESSES: 1. Hypertension. 2. Chronic kidney disease, on dialysis 3 times a week for nearly 3 years. 3. Past history of cerebrovascular accident. 4. History of anemia from before. 5. Recurrent urinary tract infection. SURGERIES: 1. Status post hysterectomy. 2. Cholecystectomy. 3. Breast biopsy. 4. AV shunt placement for dialysis. MEDICATIONS: List reviewed. FAMILY HISTORY: Unremarkable. SOCIAL HISTORY: The patient does not smoke or drink alcohol. REVIEW OF SYSTEMS: A 10-point system review. Constitutional: Has had some weakness and altered men john status recently. No history of any fever. No history of any weight loss. [employer]: Positive CVA. At the present time, no headache, no dizziness, no syncope, no seizure disorder. Respiratory system: No history of chronic cough, hemoptysis, dyspnea. Cardiovascular system: No chest pain, no dyspne a, orthopnea, or PND. Gastrointestinal: No abdominal pain, no nausea, no vomiting. Genitourinary: History of dysuria. Neuropsychiatry: Unremarkable. PHYSICAL EXAMINATION: GENERAL: The patient is obese, appears comfortable, but she is somewhat slow to respond to. Her sis ter tells me this is something new from before. However, she is awake and does communicate. She is alert, awake, and oriented to time, place, and person. HEENT: Conjunctivae clear. NECK: Supple. VITAL SIGNS: Pulse is 88, blood pressure is 180/70. NECK: Supple. No adenitis or thyromegaly noted. CARDIOVASCULAR: First and second heart sounds normal. LUNGS: Clear to auscultation. ABDOMEN: Soft to palpate. Abdomen is nontender. There is no organomegaly or masses. RECTAL: Done by me showed small external hemorrhoids, but nonbleeding. Rectum does show some hard s tool in the rectal vault, but no blood seen on the exam finger. EXTREMITIES: Revealed no edema. LABORATORY DATA: CBC: WBC 11,200, hemoglobin 8.7, hematocrit 28.9, MCV 76.7. Sodium 136, potassium 3.7, chloride 96. Bicarbonate 27, BUN is 16, creatinine 4.75, glucose is 103, albumin 3.4. On 08/09 when she was here during last admission, she had anemia with hemoglobin 7.6. CLINICAL IMPRESSION: A 56-year-old -Bangladeshi female with hematochezia. As per the patient's family, she passed large amount of blood clots and blood yesterday. Since admission, she has some bl eeding. A rectal exam done by me today, it did not show any blood on the exam finger. 1. Recurrent urinary tract infection and nurse tells me that the urine smelled like feces and was da rk brown. A Urology consult is pending. 2. Hypertension. 3. Chronic kidney disease on dialysis. 4. Anemia of chronic disease. 5. History of cerebrovascular accident from before. PLAN: I had a long talk with the patient's family and explained to them that I do not see any pathol ogy on rectal exam and no blood on the exam finger. Apparently, she had quite a bit of bleeding yest erday. I did talk to the patient and patient's family about having colonoscopy. They are agreeable. I will plan to proceed colonoscopy tomorrow after bowel prep.
[2017-09-14] MEDS: cefTRIAXone\\ROCEPHIN 2 GM in Sodium Chloride 0.9% 100 ML IVPB SCH (13:35)
[2017-09-14] MEDS: Oxybutynin 5 MG TAB PO SCH (15:54)
[2017-09-14] MEDS: Aspirin 81 mg Enteric Coated Tablet PO SCH (15:54)
[2017-09-14] MEDS: Escitalopram Oxalate 10 mg Tablet PO SCH (15:54)
--- NOTE | 2017-09-14 16:18 | ULT ---
URINARY BLADDER ULTRASOUND: CLINICAL HISTORY: Hematuria. FINDINGS: The urinary bladder is mildly distended. The patient has difficulty tolerating the exam and, therefo re, appropriate imaging for distended bladder as well as bladder voiding cannot be reliably obtained. IMPRESSION: Limited distention of the urinary bladder which limits assessment. POS: RENETTA
[2017-09-14] MEDS ORDERED: PHENYLEPHRINE-NS 100 MCG/ML 10 ML SYRINGE ONE (16:39)
[2017-09-14] MEDS ORDERED: PROPOFOL 200 MG/20 ML VIAL ONE (16:39)
--- NOTE | 2017-09-14 18:09 | PRG ---
DATE OF SERVICE: 09/14/2017 SUBJECTIVE: The patient was seen and examined and noted with the following. PHYSICAL EXAMINATION: VITAL SIGNS: Afebrile with temperature 97.8, pulse 71, respiratory rate 16, O2 sat 97% with blood pr essure 141/58. HEENT: Unremarkable with moist oral mucosa. Neck was supple, no conjunctival injection, no icterus. CARDIOVASCULAR SYSTEM: First and second heart sounds were heard. RESPIRATORY SYSTEM: Clear to auscultation. DIGESTIVE SYSTEM: Revealed a benign abdomen. EXTREMITIES: No peripheral edema. SKIN: No new gross rash. LYMPHATICS: No peripheral lymphadenopathy. LABORATORY INVESTIGATIONS: Showed creatinine of 7.5, BUN of 30, hemoglobin of 7.8. IMPRESSION: 1. End-stage renal disease, hemodialysis dependent. 2. Complicated urinary tract infection. 3. Query gastrointestinal bleed. 4. Anemia of chronic kidney disease. PLAN: 1. Hemodialysis per patient's schedule. 2. Patient to undergo colonoscopy. 3. Further management to be dependent on the clinical course.
[2017-09-14] MEDS ORDERED: Promethazine HCl 25 MG/ML VIAL IM PRN (20:18)
[2017-09-14] MEDS ORDERED: Promethazine HCl 25 MG/ML VIAL SLOW IVP PRN (20:18)
[2017-09-14] MEDS ORDERED: Ondansetron HCl/PF 4 MG/2 ML Vial IVP PRN (20:18)
[2017-09-14] MEDS: Simvastatin 20 MG TAB PO SCH (22:43)
[2017-09-14] MEDS: Estrogens, Conjugated 30 GM TUBE VAG SCH (22:43)
[2017-09-14] MEDS: Epoetin (NON-ESRD) 20,000 UNITS/ML ML IVP SCH ×2 (22:45→22:58)
[2017-09-14 22:50] LABS: Hep B Surf Ag Non-Reactive S/CO (NonReactive)
--- NOTE | 2017-09-15 00:23 | OP ---
DATE OF PROCEDURE: 09/14/2017 PROCEDURES: Colonoscopy with snare polypectomy. PREOPERATIVE DIAGNOSIS: Hematochezia. OPERATIVE NOTE: Informed consent was obtained. The patient was sedated with total intravenous anest hesia. The bite in the rectal exam was performed and was normal. The preparation quality was fair t o good. The colonoscope was advanced to the cecum where the ileocecal valve and appendiceal orifice were clearly identified. The terminal ileum was intubated and was normal. The colonic mucosa was no rmal throughout. There was mild diverticulosis scattered in the transverse and left colon. Retrofle x views in the rectum were normal. A 6 mm polyp was removed from the ascending colon by hot snare. IMPRESSION: 1. A 6 mm polyp removed from the ascending colon by snare cautery polypectomy. 2. Scattered diverticulosis of the transverse and left colon. 3. Otherwise normal colonoscopy to the terminal ileum. RECOMMENDATIONS: 1. Await histopathology. 2. Repeat colonoscopy in five years if the polyp is an adenoma, repeat in 3 years if there is a vill ous component, repeat in 10 years if it is hyperplastic or normal. 3. I will sign off. Please call if GI can help.
[2017-09-15] MEDS: Oxybutynin 5 MG TAB PO SCH (08:43)
[2017-09-15] MEDS: Carvedilol 25 MG TAB PO SCH ×2 (08:43→20:31)
[2017-09-15] MEDS: Aspirin 81 mg Enteric Coated Tablet PO SCH (08:43)
[2017-09-15] MEDS: Sevelamer Carbonate 800 MG TAB PO SCH ×3 (08:43→16:50)
[2017-09-15] MEDS: Escitalopram Oxalate 10 mg Tablet PO SCH (08:44)
[2017-09-15] MEDS: cefTRIAXone\\ROCEPHIN 2 GM in Sodium Chloride 0.9% 100 ML IVPB SCH (12:12)
[2017-09-15] MEDS: Simvastatin 20 MG TAB PO SCH (20:31)
[2017-09-15] MEDS: Estrogens, Conjugated 30 GM TUBE VAG SCH (20:31)
[2017-09-16 06:49] LABS: #Eosinphils 0.2 thou/uL (0.0-0.7); #Lymphocytes 2.7 thou/uL (1.20-3.40); #Monocytes 1.2 thou/uL (0.11-0.59); #Neutrophils 5.6 thou/uL (1.40-6.50); %Basophils 0.2 % (0.0-1.0); %Eosinophils 2.2 % (0.0-10.0); %Lymphocytes 27.7 % (21.0-51.0); %Monocytes 12.3 % (0.0-10.0); %Neutrophils 57.6 % (42.0-75.0); Mean Corpuscular Hemoglobin 23.4 pg (27.0-31.0); Mean Corpuscular Volume 75.4 fl (81.0-99.0); Mean Platelet Volume 6.6 fL (7.4-10.4); Platelet Count 424 thou/uL (130-400); RBC Distribution Width 16.9 % (11.5-14.5); Red Blood Cell (RBC) Count 3.44 mill/uL (4.20-5.40); White Blood Cell (WBC) Count 9.7 thou/uL (4.8-10.8)
[2017-09-16] MEDS: Oxybutynin 5 MG TAB PO SCH (08:41)
[2017-09-16] MEDS: Sevelamer Carbonate 800 MG TAB PO SCH ×3 (08:41→16:55)
[2017-09-16] MEDS: Escitalopram Oxalate 10 mg Tablet PO SCH (08:42)
[2017-09-16] MEDS: Aspirin 81 mg Enteric Coated Tablet PO SCH (08:42)
[2017-09-16] MEDS: Carvedilol 25 MG TAB PO SCH ×2 (08:42→21:07)
[2017-09-16] MEDS: cefTRIAXone\\ROCEPHIN 2 GM in Sodium Chloride 0.9% 100 ML IVPB SCH (13:37)
[2017-09-16] MEDS: Simvastatin 20 MG TAB PO SCH (21:07)
[2017-09-16] MEDS: Estrogens, Conjugated 30 GM TUBE VAG SCH (21:07)
[2017-09-17] MEDS: Carvedilol 25 MG TAB PO SCH ×2 (07:26→21:02)
[2017-09-17] MEDS: Sevelamer Carbonate 800 MG TAB PO SCH ×3 (07:26→18:01)
[2017-09-17] MEDS: Epoetin (NON-ESRD) 20,000 UNITS/ML ML IVP SCH (09:08)
[2017-09-17] MEDS: Aspirin 81 mg Enteric Coated Tablet PO SCH (15:02)
[2017-09-17] MEDS: Oxybutynin 5 MG TAB PO SCH (15:02)
[2017-09-17] MEDS: Escitalopram Oxalate 10 mg Tablet PO SCH (15:02)
[2017-09-17] MEDS: cefTRIAXone\\ROCEPHIN 2 GM in Sodium Chloride 0.9% 100 ML IVPB SCH (18:15)
[2017-09-17] MEDS: Simvastatin 20 MG TAB PO SCH (21:02)
[2017-09-17] MEDS: Estrogens, Conjugated 30 GM TUBE VAG SCH (21:02)
--- NOTE | 2017-09-17 22:21 | PRG ---
DATE OF SERVICE: 09/17/2017 SUBJECTIVE: The patient seen and examined, seems to be doing well, tolerated dialysis, noted with th e following vital signs. PHYSICAL EXAMINATION: VITAL SIGNS: Afebrile with temperature 98.1, pulse 84, respiratory 16, O2 sat 99%, blood pressure 12 0/60. HEENT: Unremarkable with moist oral mucosa. NECK: Supple, no conjunctival injection or icterus. CARDIOVASCULAR: First and second heart sounds were heard. RESPIRATORY: Clear to auscultation. DIGESTIVE: Revealed a benign abdomen with positive bowel sounds. EXTREMITIES: No peripheral edema. SKIN: No new gross rash. LYMPHATICS: No peripheral lymphadenopathy. IMPRESSION: 1. End-stage renal disease on hemodialysis. 2. Recurrent urinary tract infection. 3. History of gastrointestinal bleed, status post colonoscopy. PLAN: 1. The patient to continue with her current schedule of hemodialysis with ultrafiltration as tolerat ed by hemodynamics. 2. Further management to be dependent on the clinical course.
[2017-09-18 06:27] LABS: Anion Gap 13 mmol/L (10-20); BUN (Urea Nitrogen) 15 mg/dL (9.8-20.1); Calc. Creatinine Clearance 17 mL/min (70-130); Calcium 10.3 mg/dL (7.8-10.44); Carbon Dioxide 29 mmol/L (22-29); Chloride 95 mmol/L (98-107); Estimated GFR-MDRD 10; Glucose 93 mg/dL (70-105); Potassium 3.8 mmol/L (3.5-5.1); Sodium 133 mmol/L (136-145)
[2017-09-18 06:55] LABS: Hemoglobin 9.2 g/dL (12.0-16.0); Mean Corpuscular HGB CONC 31.8 g/dL (32.0-36.0); Mean Corpuscular Hemoglobin 24.4 pg (27.0-31.0); Mean Corpuscular Volume 76.7 fl (81.0-99.0); Mean Platelet Volume 7.1 fL (7.4-10.4); Platelet Count 412 thou/uL (130-400); RBC Distribution Width 17.2 % (11.5-14.5); Red Blood Cell (RBC) Count 3.78 mill/uL (4.20-5.40); White Blood Cell (WBC) Count 8.8 thou/uL (4.8-10.8)
[2017-09-18 06:56] LABS: Anisocytosis SLIGHT = 6-15 cells (100X) (0-5/hpf); Hypochromia SLIGHT = 6-15 cells (100X) (0-5/hpf); Lymphocytes 32 % (21-51); MDiff Complete? YES; Metamyelocyte 1 % (0-0); Microcytosis SLIGHT = 6-15 cells (100X) (0-5/hpf); Monocytes 12 % (0-10); Neutrophil 54 % (42-75); PLT Morphology Comment Appears Increased; Polychromasia SLIGHT = 2-3 cells (100X) (0-2/hpf); Reactive Lymphocytes 1 % (0-10)
[2017-09-18] MEDS: Sevelamer Carbonate 800 MG TAB PO SCH ×3 (09:04→17:47)
[2017-09-18] MEDS: Oxybutynin 5 MG TAB PO SCH (09:05)
[2017-09-18] MEDS: Carvedilol 25 MG TAB PO SCH (09:05)
[2017-09-18] MEDS: Aspirin 81 mg Enteric Coated Tablet PO SCH (09:05)
[2017-09-18] MEDS: Escitalopram Oxalate 10 mg Tablet PO SCH (10:28)
--- NOTE | 2017-09-18 15:50 | PDOC.EVN ---
Event Note - Event Note Event Note: OBGYN Audit Associate: Called by the patients nurse regarding this patient. Patient was noted to have "blood on bed from vagina" after moving her to 4 Bed [place]. Per RN, she has had a hysterectomy. The patient underwent a colonic polypectomy yesterday. I have asked the assigned RN to please examine to see if the blood was vaginal or rectal prior to my formal eval as site of surgery may be cuase of bleed. Meanwhile, I have requested a hyn/vaginal sono to assess vaginal cuff/pelvic structures.
--- NOTE | 2017-09-18 17:14 | ULT ---
PELVIC ULTRASOUND: 09/18/17 COMPARISON: Bladder ultrasound 09/14/17. HISTORY: Recent stroke. Patient has blood in her bed. Evaluate for transvaginal bleeding and pelvic abnormalit y. The patient has had a hysterectomy. TECHNIQUE: Multiplanar alexandre scale and color doppler images were obtained in a transabdominal and transvaginal pe [facility] ultrasound. FINDINGS: The uterus has been removed. Neither ovary could be visualized. No free fluid is seen in the pelvis. The urinary bladder contains a small amount of echoic material within it which is nonspecific. IMPRESSION: 1. Status post hysterectomy without obvious pelvic mass. 2. Echogenic material in the urinary bladder may represent debris. Alternatively, this could rep resent a blood clot. This is not seen on the prior ultrasound. POS: RENETTA
--- NOTE | 2017-09-18 17:20 | PDOC.EVN ---
Event Note - Event Note Event Note: OBGYN: patient seen in 4420 at 1700. Patient is a poor historian. States hysterectomy done "years ago". No VB noted. I discussed with sono tech, no blood on vaginal probe. No pelvic massess on sono. No CVB seen on perineum or inner labia. No suspicion of gynecological bleeding. Sono with possible blood in bladder...will defer to primary team. She is a dialysis patient by RN report.
[2017-09-18] MEDS ORDERED: Sodium Chloride 0.9% 500 ML IVPB SCH (19:30)
[2017-09-18] MEDS: cefTRIAXone\\ROCEPHIN 2 GM in Sodium Chloride 0.9% 100 ML IVPB SCH ×2 (19:49→21:32)
[2017-09-18] MEDS: Estrogens, Conjugated 30 GM TUBE VAG SCH (21:33)
[2017-09-18] MEDS: Simvastatin 20 MG TAB PO SCH (21:34)
[2017-09-18] MEDS: Sodium Chloride 0.9% 1,000 ML IV SCH (21:34)
--- NOTE | 2017-09-19 00:07 | PRG ---
SUBJECTIVE: The patient was seen and examined with no new complaint noted with following vital signs . PHYSICAL EXAMINATION: VITAL SIGNS: Afebrile with temperature 98, pulse 65, respiratory rate 16, O2 saturation of 94% with a blood pressure 119/61. HEENT: Unremarkable. Moist oral mucosa. Neck is supple. No conjunctival injection or icterus. CARDIOVASCULAR: First and second heart sounds were heard. RESPIRATORY: Clear to auscultation. DIGESTIVE: Revealed a benign abdomen with positive bowel sounds. EXTREMITIES: No peripheral edema. SKIN: No new gross rash. LYMPHATICS: No peripheral lymphadenopathy. IMPRESSION: 1. End-stage renal disease. 2. Hypertension. 3. Morbid obesity. PLAN: 1. From the ultrasound results seems to be significant amount of debris in the bladder. The patient will benefit from a cystoscopy, but would defer to the patient's urologist. 2. Further management to be dependent on the clinical course.
[2017-09-19 05:13] LABS: #Basophils 0.1 thou/uL (0.0-0.2); #Eosinphils 0.3 thou/uL (0.0-0.7); #Lymphocytes 3.1 thou/uL (1.20-3.40); #Monocytes 1.3 thou/uL (0.11-0.59); #Neutrophils 5.2 thou/uL (1.40-6.50); %Basophils 0.7 % (0.0-1.0); %Eosinophils 3.2 % (0.0-10.0); %Lymphocytes 30.7 % (21.0-51.0); %Monocytes 13.3 % (0.0-10.0); Hemoglobin 7.8 g/dL (12.0-16.0); Mean Corpuscular HGB CONC 29.8 g/dL (32.0-36.0); Mean Corpuscular Hemoglobin 22.9 pg (27.0-31.0); Mean Corpuscular Volume 76.9 fl (81.0-99.0); Mean Platelet Volume 7.5 fL (7.4-10.4); Platelet Count 382 thou/uL (130-400); RBC Distribution Width 17.4 % (11.5-14.5)
[2017-09-19 05:46] LABS: Anion Gap 17 mmol/L (10-20); BUN (Urea Nitrogen) 28 mg/dL (9.8-20.1); Calc. Creatinine Clearance 12 mL/min (70-130); Calcium 9.5 mg/dL (7.8-10.44); Carbon Dioxide 25 mmol/L (22-29); Chloride 96 mmol/L (98-107); Estimated GFR-MDRD 7; Glucose 91 mg/dL (70-105); Sodium 133 mmol/L (136-145)
[2017-09-19] MEDS: Aspirin 81 mg Enteric Coated Tablet PO SCH (07:41)
[2017-09-19] MEDS: Sevelamer Carbonate 800 MG TAB PO SCH ×3 (07:41→17:20)
[2017-09-19] MEDS: Escitalopram Oxalate 10 mg Tablet PO SCH (07:41)
[2017-09-19] MEDS: Oxybutynin 5 MG TAB PO SCH (07:41)
[2017-09-19] MEDS: Sodium Chloride 0.9% 1,000 ML IV SCH ×2 (07:45→16:59)
[2017-09-19] MEDS: Epoetin (NON-ESRD) 20,000 UNITS/ML ML IVP SCH (17:21)
--- NOTE | 2017-09-19 18:07 | PRG ---
DATE OF SERVICE: 09/19/2017 SUBJECTIVE: The patient was seen and examined, having very bloody urine in the bladder, noted with t he following. OBJECTIVE: VITAL SIGNS: At dialysis, afebrile, temperature 97.8, pulse 65, respiratory rate of 18, O2 sat 97% w ith blood pressure 136/88. HEENT: Unremarkable with moist oral mucosa. NECK: Supple, no conjunctival injection or icterus. CARDIOVASCULAR SYSTEM: First and second heart sounds were heard. RESPIRATORY SYSTEM: Clear to auscultation. DIGESTIVE SYSTEM: Revealed a benign abdomen with positive bowel sounds. EXTREMITIES: No peripheral edema. SKIN: No new gross rash. UROGENITAL SYSTEM: Revealed a very bloody urinary bladder. A very bloody urine in the Bond cathete r. IMPRESSION: 1. End-stage renal disease, on hemodialysis. 2. Urinary tract infection, recurrent. 3. Gross hematuria, query cause. PLAN: 1. Patient needs Urology to reevaluate this patient and possibly have patient undergo cystoscopy and if not a CAT scan of the kidney. 2. Three-way Bond catheter for continuous bladder irrigation. 3. Further management to be dependent on the clinical course. Please monitor the hemoglobin level a nd transfuse accordingly.
[2017-09-19] MEDS ORDERED: Sodium Chloride 0.9% 10 ML ONE (18:19)
[2017-09-19] MEDS: Estrogens, Conjugated 30 GM TUBE VAG SCH (19:43)
[2017-09-19] MEDS: cefTRIAXone\\ROCEPHIN 2 GM in Sodium Chloride 0.9% 100 ML IVPB SCH (20:52)
[2017-09-19] MEDS: Simvastatin 20 MG TAB PO SCH (20:52)
[2017-09-20] MEDS: Sevelamer Carbonate 800 MG TAB PO SCH ×3 (07:56→17:07)
[2017-09-20] MEDS: Escitalopram Oxalate 10 mg Tablet PO SCH (07:57)
[2017-09-20] MEDS: Aspirin 81 mg Enteric Coated Tablet PO SCH (07:57)
[2017-09-20] MEDS: Oxybutynin 5 MG TAB PO SCH (07:57)
--- NOTE | 2017-09-20 10:00 | PRG ---
DATE OF SERVICE: 09/20/2017 The patient was seen and examined with no new complaint. The hematuria seems to be clearing up statu s post continuous bladder irrigation. PHYSICAL EXAMINATION: VITAL SIGNS: Afebrile, temperature 98.3, pulse 69, respiratory rate of 18, O2 sat 95% with blood pre ssure 149/83. HEENT: Unremarkable. CARDIOVASCULAR: First and second heart sounds were heard. RESPIRATORY: Clear to auscultation. ABDOMEN: Digestive system revealed a benign abdomen. EXTREMITIES: No peripheral edema. LABORATORY INVESTIGATIONS: None today, but the patient to benefit from evaluation of the patient's h emoglobin level. IMPRESSION: 1. Gross hematuria, query cause. 2. Recurrent urinary tract infection, likely complicated urinary tract infection. 3. End-stage renal disease, hemodialysis dependent, dialyzed yesterday. 4. Morbid obesity. PLAN: 1. The patient definitely needs a comprehensive urologic evaluation given the significant hematuria and recurrent urinary tract infection. Currently, the patient is on continuous bladder irrigation, b ut this is not definitive therapy and a comprehensive evaluation will enable for definitive therapy t o avoid recurrence and worsening of this clinical condition. 2. Patient to continue with renal replacement therapy (hemodialysis per her schedule). 3. Further management to be dependent on the clinical course. 4. Recheck the patient's hemoglobin and track this given the significant hematuria in this patient.
[2017-09-20 10:21] LABS: Hemoglobin 8.3 g/dL (12.0-16.0)
--- NOTE | 2017-09-20 12:58 | CT ---
CT ABDOMEN AND PELVIS WITH AND WITHOUT CONTRAST: HISTORY: Hematuria. The patient is a dialysis patient but does produce a small amount of urine. When the Fol ey catheter was inserted, the urine was foul smelling, and there was blood in the urine. COMPARISON: IVP from 09/20/2017. TECHNIQUE: Multiple contiguous axial images were obtained in a CT of the abdomen and pelvis with and without IV contrast. Coronal reformats were performed. FINDINGS: The kidneys are small and atrophic. No calcifications are seen in either renal collecting system. T here are small calcifications in the hilar region of both kidneys, which may represent vascular calci fications. The ureters are mildly prominent, but there is no calyceal dilatation. The gallbladder has been removed. The liver, adrenal glands, spleen, and pancreas are unremarkable. There is a tiny hypodensity at the anterior aspect of the left kidney, which likely represents a sma ll cyst. No other focal renal abnormality is seen. The large and small bowel are unremarkable. The appendix is unremarkable. A Bond catheter is seen within the urinary bladder. Degenerative changes are seen in the spine. The visualized inferior thorax and abdominal wall soft t issues are unremarkable. IMPRESSION: 1. Left renal cyst. 2. Small atrophic kidneys. 3. Slight prominence of the ureters is nonspecific. No calyceal dilatation is seen to suggest hydro nephrosis. 4. Small calcifications in the hilar region of both kidneys are likely vascular calcifications. 5. Nonobstructing collecting system calcifications are also a possibility. POS: RENETTA
--- NOTE | 2017-09-20 13:01 | RAD ---
IVP: HISTORY: Hematuria. The patient is a dialysis patient but apparently produces a small amount of urine. COMPARISON: CT abdomen and pelvis from 09/20/2017. FINDINGS: A hospital sales representative image was obtained prior to the patient's CT. This showed cholecystectomy clips in the right upper quadrant of the abdomen. No obvious calcification projected over either renal shadow. Images were then obtained in an attempt to do an IVP, post injection of CT IV contrast. There are sm all bilateral nephrograms seen on the images up to 58 minutes. No excretion of the contrast from eit her renal collecting system was seen, and no contrast accumulated in the urinary bladder or was seen in the Bond catheter. IMPRESSION: No significant excretin of contrast from the kidneys. POS: [facility]
[2017-09-20] MEDS ORDERED: Iopamidol 370 76% 100 ML VIAL ONE (13:50)
[2017-09-20] MEDS: cefTRIAXone\\ROCEPHIN 2 GM in Sodium Chloride 0.9% 100 ML IVPB SCH (21:25)
[2017-09-20] MEDS ORDERED: cefTRIAXone\\ROCEPHIN 2 GM in Sodium Chloride 0.9% 100 ML IVPB SCH (21:30)
[2017-09-20] MEDS ORDERED: Gentamicin 80 MG/2 ML VIAL IRR SCH (21:30)
[2017-09-20] MEDS: Simvastatin 20 MG TAB PO SCH (21:53)
[2017-09-20] MEDS: Estrogens, Conjugated 30 GM TUBE VAG SCH (21:54)
--- NOTE | 2017-09-21 02:38 | CON ---
DATE OF CONSULTATION: 09/20/2017 REASON FOR CONSULTATION: 1. Recurrent urinary tract infection due to Escherichia coli. 2. Concerns for possible colovesical fistula. 3. New-onset gross hematuria. HISTORY OF PRESENT ILLNESS: Ms. Camille Amaro is a 57-year-old -[place] female with a past history of stroke with resulting right-sided weakness and recurrent urinary tract infection. The luc abdi has been hospitalized three times in the last year with urinary tract infections. Two of those so far cultured E. coli and on this admission, she also had an E. coli with a similar antibiotic resi stance pattern. The patient has had dirty or smelly urine. The patient was started on appropriate a ntibiotic coverage. She is on hemodialysis. INTERVAL EVENTS: Patient on hemodialysis developed gross per urethral bleeding with a Bond catheter in place and subsequently was on CBI with gradual clearing of the gross hematuria. Due to the hemat uria development, I recommend the patient undergo CT scan evaluation today prior to her Sunday dialys is. CT scan shows a small nonmalignant appearing cyst in the anterior aspect of the left kidney. The luc abdi's renal collecting system suggests that she may have experienced a papillary necrosis event. Rudolph gallagher does have some prominence of her ureters which is nonspecific. She has relatively poor excreti on of the contrast due to poor renal function. There are calcifications in the hilar region of both kidneys suggesting vascular calcifications. The patient's bladder wall appears to be thickened on e CT scan and an indwelling Bond catheter is seen in proper position. PHYSICAL EXAMINATION: VITAL SIGNS: Patient is afebrile with temperature of 98 degrees Fahrenheit, pulse is 80, respiration s 18, O2 saturation 97%, blood pressure is 138/80. GENERAL: This is an awake, alert -Wallisian female. She did have a stroke and has some expres sive aphasia associated with that. HEENT: Extraocular movements are intact. Sclerae are anicteric. Oropharynx is clear. NECK: Supple. LUNGS: Clear to auscultation bilaterally. CARDIAC: There is a regular rate and rhythm with a systolic ejection murmur. ABDOMEN: Soft and nontender. MUSCULOSKELETAL: There is no costovertebral angle tenderness on exam. The patient's left arm is not able for an arteriovenous fistula in the upper arm. There is some edema to the patient's right arm. The lower extremities, the patient is able to move her feet and wiggle toes, but is too weak to rais e her legs from the bed for me on examination. PELVIC: An indwelling CBI catheter is in place. Urine appears to be grossly clear with a few small particulates present in the urine. LABORATORY STUDIES: Patient's white count is 10,000, hemoglobin is 7.8 with hematocrit of 26.2. Ser um chemistries showed the patient's glucose running in the 150 range. The potassium was 5 when check ed on 09/19/2017 with blood urea nitrogen of 28 and creatinine of 7.0. ASSESSMENT AND PLAN: 1. Pyocystis secondary to low urinary production and postmenopausal status with no ascending barrier s to infection. The patient should continue with Premarin cream application to the urethra in introi tus area on a daily basis. This will restore the normal sekou to the vagina women become colonized w ith fecal organisms when the estrogen level drops off. Due to the fact that the patient's bladder em pties poorly due to in-bed status and low urine production, her bladder is the most likely reservoir over her recurrent urinary tract infections. 2. Management of recurrent urinary tract infection. Patient is currently on Rocephin, which is appr opriate antibiotic for her E. coli. In addition, I am recommending an additional gentamicin be added to irrigation overnight. We will redose the patient's bladder in the morning and possibly leave her Bond catheter out after that. 3. Concerns for papillary necrosis. If it is possible to identify the patient's ureteric orifices, the retrograde pyelography may demonstrate papillary necrosis which I think fits the mechanism and pr esentation of the patient's sudden onset gross hematuria episode well. Total assessment and consultation time on this patient was over 40 minutes and subsequent evaluation of the hospitalized patient today including coordination with both Dr. Torres and Dr. Foy.
[2017-09-21] MEDS: Carvedilol 25 MG TAB PO SCH ×2 (06:35→20:49)
[2017-09-21] MEDS ORDERED: Iothalamate Meglumine 60% 50 ML VIAL FS ONE ×3 (07:14→11:04)
[2017-09-21] MEDS: Sevelamer Carbonate 800 MG TAB PO SCH ×3 (07:42→17:47)
[2017-09-21] MEDS ORDERED: Norepinephrine 8 MG/0.9% NS 0 ML ONE (09:24)
[2017-09-21] MEDS ORDERED: Fentanyl 100 MCG/2 ML VIAL ONE (09:24)
[2017-09-21] MEDS ORDERED: Ketamine 50 MG/ML VIAL ONE (09:24)
--- NOTE | 2017-09-21 10:14 | PRG ---
DATE OF SERVICE: 09/21/2017 CHIEF COMPLAINT: 1. Recurrent urinary tract infection. 2. New onset gross hematuria. 3. Postmenopausal status with low estrogen state. HISTORY OF PRESENT ILLNESS: Ms. Camille Amaro is a 57-year-old female with a past history of stroke with resulting right-sided hemiparesis and a history of recurrent urinary tract inf ection. She has end-stage renal disease and is on hemodialysis by Dr. Foy. The patient has h ad several Escherichia coli urinary tract infections in the last year including this admission. The patient had a similar antibiotic resistance pattern on these UTIs. The patient's most likely reservo ir for this is her actual bladder. She has a supine positioning on most days not up and about and soriano s resulting supine positioning with likely layering of urine. The patient's post stroke status means she is not very ambulatory. The patient has end-stage renal disease and resulting low urine output which results in stasis of urine and infrequent voids. Since she is without ascending barriers to in fection due to postmenopausal status and no estrogen, she is prone to colonization and recurrent urin flor tract infection. the patient probably would benefit from daily or twice daily CIC based on this. She might also benefit from simple bladder irrigation and drainage on a daily basis. The patient's current presentation is notable for a gross hematuria episode and she did undergo CT scanning yester day. See my notes from yesterday for specific details. No major pathology was identified, although I think it is possible that she may have papillary necrosis. Interval events since yesterday's evaluation; the patient has been on bladder CBI with gentamicin irr igation. She has had substantial clearing of her urine with less particulate load. Today the patient has agreed to proceed to the operating room for cystoscopic evaluation. I am not o verly optimistic about this as we will probably find a large amount of inflammation related to her py ocystis. We may or may not be able to perform retrograde evaluation to confirm papillary necrosis. PHYSICAL EXAMINATION: VITAL SIGNS: Temperature is 98.0, pulse 66, respirations 16, O2 saturation on room air is 96%, blood pressure is 148/77. GENERAL: This is an awake, alert female who is post stroke, she is not communicativ e most of the time. She does give simple answers when questioned. She is at her baseline based on m y evaluation. HEENT: Extraocular movements are intact. Sclerae are anicteric. Her oropharynx is clear. NECK: Supple. LUNGS: Lungs are clear bilaterally. CARDIAC: Regular rate and rhythm. ABDOMEN: Soft, nontender. There is no flank pain present on this patient. GENITOURINARY: Bond catheter is in place. Urine is on irrigation with gentamicin CBI and the patie nt has had substantial clearing of her urine. LABORATORY STUDIES: The patient's hemoglobin is 8.3, hematocrit 28. Serum chemistries; current gluc ose 107. She had last electrolytes drawn on 09/19/2017, had a creatinine of 7, blood urea nitrogen 2 8 at that point, potassium was 5.0 at that point. Microbiology; urine culture did grow Escherichia c mayur from 09/13/2017, similar to previous Escherichia coli as this had a sensitivity pattern to gentam icin, ceftriaxone and nitrofurantoin as well as Bactrim. It was resistant to fluoroquinolones and to ampicillin. ASSESSMENT: 1. Gross hematuria possibly due to papillary necrosis and/or active cystitis. 2. ID, the patient is on appropriate antibiotic with gentamicin irrigation of the bladder which may work better than systemic antibiotics given the cystitis feature and low urine output. She is also o n ceftriaxone. 3. Recurrent urinary tract infection. This is due to a reservoir which most likely is the patient's bladder with infrequent bladder emptying and loss of her estrogen barrier. She does not have what a ppear to be an infected stones in her system. There does not appear to be excessive bladder capacity and the patient does not have any oral reports of anything that would point us towards any type of f istula at this point. 4. Gross hematuria. The patient's upper tract evaluation by CT IVP is essentially complete, althoug h the ureters and collecting systems are not very well evaluated. The patient does agree to proceed to the operating room for cystoscopic evaluation and possible retrograde pyelography. I am not overl y optimistic that the ureteric opening is going to be found in this particular case without resolutio n of her ongoing cystitis issues.
[2017-09-21] MEDS ORDERED: Atracurium 100 MG/10 ML VIAL ONE (10:36)
[2017-09-21] MEDS ORDERED: HYDROmorphone 2 MG/ML VIAL SLOW IVP PRN (11:06)
[2017-09-21] MEDS ORDERED: Promethazine HCl 25 MG/ML VIAL SLOW IVP PRN (11:06)
[2017-09-21] MEDS ORDERED: Ondansetron HCl/PF 4 MG/2 ML Vial IVP PRN (11:06)
[2017-09-21] MEDS ORDERED: Promethazine HCl 25 MG/ML VIAL IM PRN (11:06)
--- NOTE | 2017-09-21 12:00 | RAD ---
RETROGRADE PYELOGRAM 11 VIEWS: Date: 09/21/17 HISTORY: 57-year-old female with urinary tract infection. FINDINGS: There is moderate dilation of the bilateral renal collecting systems. There is mild to moderate dilat ion of the bilateral ureters. There are multifocal short segment strictures of the inferior aspect of the left ureter, and also the inferior aspect of the right ureter, fewer in number on the right. The urinary bladder, which is later partially filled with contrast via a Bond catheter, has very irregu lar mucosal lining. IMPRESSION: 1. Bilateral moderate hydroureteronephrosis, apparently due to multifocal strictures of the bilatera l distal ureters. 2. Somewhat severe cystitis. POS: [facility]
--- NOTE | 2017-09-21 12:11 | OP ---
DATE OF PROCEDURE: 09/21/2017 PREOPERATIVE DIAGNOSES: 1. Pyocystis. 2. Gross hematuria. 3. History of recurrent Escherichia coli urinary tract infection. 4. Hemodialysis patient with end-stage renal disease. POSTOPERATIVE DIAGNOSES: 1. Pyocystis. 2. Gross hematuria. 3. History of recurrent Escherichia coli urinary tract infection. 4. Hemodialysis patient with end-stage renal disease. 5. Bladder fracture leading to gross hematuria. 6. 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 7. Infiltrate of likely inflammatory process and bladder. OPERATIVE PROCEDURES PERFORMED: 1. Cystourethroscopy with transurethral resection of bladder lesion greater than 5 cm, 57991. 2. Cystourethroscopy with bilateral retrograde pyelography, 10810. 3. Introduction of contrast for retrograde cystogram. SURGEON: Petey Howard M.D. [employer] SURGEON: None. ANESTHESIA: General by endotracheal means. ESTIMATED BLOOD LOSS: 50 mL SPECIMENS REMOVED: Bladder lesions which appeared inflammatory or infiltrative. OPERATIVE FINDINGS: A full series of filling and drainage studies from both left and right collectin g system were performed. These showed blunting of the calices, which could be compatible with a past papillary necrosis event. The ureters drained relatively poorly secondary to multilevel stricture, which are likely due to vascular causes based on the appearance on the retrograde study ureters do, h owever, drain. The patient's bladder appears to have undergone a fracture event. She is relatively low bladder capacity. At maximal fill volume, she only filled to 120 mL. The contrast evaluation wa s performed post-transurethral resection of bladder lesions and she had trabeculation demonstrated on the retrograde study indicating a chronic decrease in overall bladder size. TECHNICAL PROCEDURE: The patient was appropriately identified in the preoperative holding area. She was transported to the operative suite, placed in the supine position on a cystofluorographic table. General anesthesia was established. The patient was initially given general anesthesia by LMA dara warren. Later in the case, she was transitioned to actual endotracheal intubation due to the identificat ion of bladder fracture. We performed a cystoscopic evaluation which demonstrated a bladder fraction. The patient's bladder w ith active bleeding. We then performed biopsies of the area adjacent to the fracture, sent these spe cimens, which were overlying the area of the right obturator area to pathology for permanent section. We then placed a gyrus resectoscope per urethra using the obturator performed a clot evacuation and then performed additional irrigation of the patient's bladder. We then performed retrograde pyelogr aphy bilaterally, which demonstrated stricturing of the ureters distally and relatively slow drainage from the collecting system, however, there was blunting of the calices seen bilaterally suggesting s ome type of past papillary necrosis event, but there were no obstructing masses within the patient's ureters. There is no evidence of kidney stones or blood clots in the upper tract. After completion of retrograde pyelography bilaterally, we performed resection of the bladder fractured areas to gain control of small bleeding vessels which were hemorrhaging. Likely mechanism for the fracture would b e over-distention of the bladder with CBI in place or trauma during catheter placement or possibly wi th the patient moving about in the bed or being transported with a catheter in place. The patient underwent resection of more than 5 cm of bladder wall and the specimens were collected fo r permanent section. We did have some calderon specimen. The patient did have a small bowel movement dur ing the course of the procedure and the specimen was sent separately due to possibilities of stool co ntamination. The patient tolerated the procedure well and was extubated in the operative suite, transported to the postoperative recovery in good condition. COMPLICATIONS: None. ESTIMATED BLOOD LOSS: 50 mL SPECIMENS REMOVED: Bladder lesions for analysis.
[2017-09-21] MEDS: Oxybutynin 5 MG TAB PO SCH (12:30)
[2017-09-21] MEDS: Escitalopram Oxalate 10 mg Tablet PO SCH (12:30)
[2017-09-21] MEDS: Aspirin 81 mg Enteric Coated Tablet PO SCH (12:31)
[2017-09-21] MEDS: Epoetin (NON-ESRD) 20,000 UNITS/ML ML IVP SCH (14:00)
[2017-09-21] MEDS ORDERED: PROPOFOL 200 MG/20 ML VIAL ONE (15:17)
[2017-09-21] MEDS ORDERED: ePHEDrine/0.9% NaCl/PF SYRINGE 50 mg/10 ml ONE (15:17)
[2017-09-21] MEDS ORDERED: Lidocaine 1% PF 5 ML VIAL ONE (15:17)
[2017-09-21] MEDS ORDERED: Glycopyrrolate 0.2 MG/ML 5 ML SYRINGE ONE (15:17)
[2017-09-21] MEDS ORDERED: PHENYLEPHRINE-NS 100 MCG/ML 10 ML SYRINGE ONE (15:17)
--- NOTE | 2017-09-21 20:35 | PRG ---
DATE OF SERVICE: 09/21/2017 SUBJECTIVE: The patient was seen and examined today at dialysis, sleepy, but arousable, seems to be doing okay and noted with the following. OBJECTIVE: VITAL SIGNS: Afebrile, temperature 98, pulse 66, respiratory rate of 16 and O2 sat 96% with a blood pressure of 162/83. HEENT: Unremarkable. Moist oral mucosa. No conjunctival injection or icterus. NECK: Supple. CARDIOVASCULAR SYSTEM: First and second heart sounds were heard. RESPIRATORY SYSTEM: Clear to auscultation. DIGESTIVE SYSTEM: Reviewed a benign abdomen with positive bowel sounds. EXTREMITIES: No peripheral edema. SKIN: No new gross rash. LYMPHATICS: No peripheral lymphadenopathy. IMPRESSION: 1. End-stage renal disease, hemodialysis dependent. 2. Gross hematuria, query cause. 3. Recurrent urinary tract infection. PLAN: 1. The patient undergoing comprehensive urologic evaluation including cystoscopy and retrograde pyel ogram. We will await the official report from the urologist. 2. The patient is to continue with hemodialysis as tolerated by hemodynamics. 3. Further management to be dependent on the clinical course.
[2017-09-21] MEDS: cefTRIAXone\\ROCEPHIN 2 GM in Sodium Chloride 0.9% 100 ML IVPB SCH (20:49)
[2017-09-21] MEDS: Simvastatin 20 MG TAB PO SCH (20:49)
[2017-09-21] MEDS: Estrogens, Conjugated 30 GM TUBE VAG SCH (20:50)
[2017-09-22] MEDS: Sevelamer Carbonate 800 MG TAB PO SCH ×3 (08:15→18:36)
[2017-09-22] MEDS: Escitalopram Oxalate 10 mg Tablet PO SCH (09:00)
[2017-09-22] MEDS: Carvedilol 25 MG TAB PO SCH ×2 (09:00→21:00)
[2017-09-22] MEDS: Oxybutynin 5 MG TAB PO SCH (09:00)
[2017-09-22] MEDS ORDERED: Ondansetron HCl/PF 4 MG/2 ML Vial SLOW IVP PRN (09:52)
[2017-09-22] MEDS: Ondansetron ODT 4 MG TAB PO PRN (12:46)
--- NOTE | 2017-09-22 19:46 | PRG ---
DATE OF SERVICE: 09/22/2017 SUBJECTIVE: The patient was seen and examined, still having gross hematuria and noted with the follo wing vital signs. PHYSICAL EXAMINATION: VITAL SIGNS: Afebrile with temperature 98.4, pulse 72, respiratory rate of 14, O2 sat 95% with blood pressure 145/82. HEENT: Unremarkable. CARDIOVASCULAR: First and second heart sounds were heard. RESPIRATORY: Clear to auscultation. DIGESTIVE: Revealed a benign abdomen. EXTREMITIES: No peripheral edema. SKIN: No new gross rash. UROGENITAL: Still revealed evidence of gross hematuria. IMPRESSION: 1. Gross hematuria, query cause, likely urologic. 2. End-stage renal disease, on hemodialysis. PLAN: 1. The patient is to continue dialysis per her schedule. 2. Further management to be dependent on the clinical course as well as further recommendation from Urology.
[2017-09-22] MEDS: cefTRIAXone\\ROCEPHIN 2 GM in Sodium Chloride 0.9% 100 ML IVPB SCH (20:59)
[2017-09-22] MEDS: Simvastatin 20 MG TAB PO SCH (21:00)
[2017-09-22] MEDS: Estrogens, Conjugated 30 GM TUBE VAG SCH (21:00)
[2017-09-23] MEDS: Ondansetron ODT 4 MG TAB PO PRN ×2 (02:32→08:29)
[2017-09-23] MEDS: Sevelamer Carbonate 800 MG TAB PO SCH ×3 (08:10→17:26)
[2017-09-23] MEDS: Escitalopram Oxalate 10 mg Tablet PO SCH (09:20)
[2017-09-23] MEDS: Oxybutynin 5 MG TAB PO SCH (09:20)
[2017-09-23] MEDS: Carvedilol 25 MG TAB PO SCH ×2 (09:21→20:51)
[2017-09-23] MEDS: Acetaminophen 325 MG TAB PO PRN (19:01)
[2017-09-23] MEDS: cefTRIAXone\\ROCEPHIN 2 GM in Sodium Chloride 0.9% 100 ML IVPB SCH (20:51)
[2017-09-23] MEDS: Simvastatin 20 MG TAB PO SCH (20:51)
[2017-09-23] MEDS: Estrogens, Conjugated 30 GM TUBE VAG SCH (20:51)
[2017-09-24] MEDS: Acetaminophen 325 MG TAB PO PRN (02:23)
[2017-09-24 08:47] LABS: Hemoglobin 6.9 g/dL (12.0-16.0)
[2017-09-24] MEDS: Carvedilol 25 MG TAB PO SCH ×2 (09:17→20:00)
[2017-09-24] MEDS: Sevelamer Carbonate 800 MG TAB PO SCH ×3 (09:17→17:11)
[2017-09-24] MEDS: Oxybutynin 5 MG TAB PO SCH (09:18)
[2017-09-24] MEDS: Escitalopram Oxalate 10 mg Tablet PO SCH (09:18)
[2017-09-24] MEDS: Epoetin (NON-ESRD) 20,000 UNITS/ML ML IVP SCH (12:53)
--- NOTE | 2017-09-24 19:18 | PRG ---
DATE OF SERVICE: 09/24/2017 SUBJECTIVE: The patient was seen and examined today at dialysis, noted with the following. OBJECTIVE: VITAL SIGNS: Afebrile with temperature 98.2, pulse 75, respiratory rate of 16, and blood pressure 15 8/85. HEENT: Unremarkable with moist oral mucosa. NECK: Supple, no conjunctival injection or icterus. CARDIOVASCULAR SYSTEM: First and second heart sounds were heard. RESPIRATORY SYSTEM: Clear to auscultation. DIGESTIVE SYSTEM: Revealed a benign abdomen. EXTREMITIES: No peripheral edema. UROGENITAL: Examination revealed bloody urine. IMPRESSION: 1. End-stage renal disease, hemodialysis dependent. 2. Gross hematuria, query cause. 3. Recurrent urinary tract infection. PLAN: 1. Hemodialysis continued as per patient's schedule Sunday, Sunday, and Sunday. 2. Further management to be dependent on the clinical course.
[2017-09-24] MEDS: cefTRIAXone\\ROCEPHIN 2 GM in Sodium Chloride 0.9% 100 ML IVPB SCH (19:59)
[2017-09-24] MEDS: Estrogens, Conjugated 30 GM TUBE VAG SCH (20:00)
[2017-09-24] MEDS: Simvastatin 20 MG TAB PO SCH (20:00)
[2017-09-25] MEDS: Sevelamer Carbonate 800 MG TAB PO SCH ×3 (08:31→18:35)
[2017-09-25] MEDS: Carvedilol 25 MG TAB PO SCH ×2 (08:31→20:42)
[2017-09-25] MEDS: Escitalopram Oxalate 10 mg Tablet PO SCH (08:31)
[2017-09-25] MEDS: Oxybutynin 5 MG TAB PO SCH (08:32)
--- NOTE | 2017-09-25 18:01 | PRG ---
DATE OF SERVICE: 09/25/2017 SUBJECTIVE: The patient was seen and examined today with no new complaint. Noted with the following vital signs. OBJECTIVE: VITAL SIGNS: Afebrile with temperature 98.6, pulse 72, respiratory rate of 16, O2 sat of 95% with bl ood pressure 158/90. HEENT: Unremarkable with moist oral mucosa. No conjunctival injection or icterus. NECK: Supple CARDIOVASCULAR SYSTEM: First and second heart sounds were heard. RESPIRATORY SYSTEM: Clear to auscultation. DIGESTIVE SYSTEM: Revealed a benign abdomen. EXTREMITIES: No peripheral edema. NEUROLOGIC: Alert, oriented. No lateralizing sign. LYMPHATICS: No peripheral lymphadenopathy. GENITOURINARY: Showed bloody Bond bag. IMPRESSION: 1. Hematuria in the context of bladder fracture. 2. Recurrent urinary tract infection. 3. End-stage renal disease, hemodialysis dependent. PLAN: 1. The patient will be due for dialysis tomorrow. 2. The patient has been transfused with 2 units of blood given the significant anemia, which is part ly due to blood loss. 3. Further management to be dependent on the clinical course as well as further recommendation from Urology Service.
[2017-09-25] MEDS: cefTRIAXone\\ROCEPHIN 2 GM in Sodium Chloride 0.9% 100 ML IVPB SCH (20:41)
[2017-09-25] MEDS: Simvastatin 20 MG TAB PO SCH (20:41)
[2017-09-25] MEDS: Estrogens, Conjugated 30 GM TUBE VAG SCH (20:42)
[2017-09-25] MEDS ORDERED: Carvedilol 25 MG TAB PO SCH (23:30)
[2017-09-26 05:35] VITALS: BMI 34.1
[2017-09-26 08:11] LABS: Hemoglobin 9.4 g/dL (12.0-16.0)
--- NOTE | 2017-09-26 08:43 | PRG ---
DATE OF SERVICE: 09/26/2017 The patient was seen and examined at dialysis, still having significant hematuria. PHYSICAL EXAMINATION: VITAL SIGNS: Afebrile with temperature 98.2, pulse 64, respiratory rate 20, O2 sat 95% with a blood pressure 157/82. HEENT: Unremarkable with moist oral mucosa. Neck is supple. No conjunctival injection or icterus. CARDIOVASCULAR: First and second heart sounds were heard. RESPIRATORY: Clear to auscultation. DIGESTIVE: Revealed a benign abdomen with positive bowel sounds. EXTREMITIES: No peripheral edema. SKIN: No new gross rash. LYMPHATICS: No peripheral lymphadenopathy. LABORATORY: Hemoglobin 9.4. IMPRESSION: 1. End-stage renal disease, hemodialysis dependent. 2. Gross hematuria, possibly in the context of bladder fracture. 3. Anemia, status post blood transfusion. PLAN: 1. The patient's hematuria seems to be lasting for too long. We will suggest revisit by the urologi st to figure out a way to address this persistent hematuria. 2. Hemodialysis per schedule to be continued without any heparin. 3. Further management to be dependent on the clinical course.
[2017-09-26] MEDS: Epoetin (NON-ESRD) 20,000 UNITS/ML ML IVP SCH (09:38)
[2017-09-26] MEDS: Sevelamer Carbonate 800 MG TAB PO SCH ×3 (14:22→17:15)
[2017-09-26] MEDS: Escitalopram Oxalate 10 mg Tablet PO SCH (14:26)
[2017-09-26] MEDS: Carvedilol 25 MG TAB PO SCH ×2 (14:26→20:23)
[2017-09-26] MEDS: Oxybutynin 5 MG TAB PO SCH (14:27)
[2017-09-26] MEDS: Estrogens, Conjugated 30 GM TUBE VAG SCH (19:16)
[2017-09-26] MEDS: cefTRIAXone\\ROCEPHIN 2 GM in Sodium Chloride 0.9% 100 ML IVPB SCH (20:23)
[2017-09-26] MEDS: Simvastatin 20 MG TAB PO SCH (20:23)
[2017-09-27] MEDS: Sevelamer Carbonate 800 MG TAB PO SCH ×3 (08:14→17:26)
[2017-09-27] MEDS: Oxybutynin 5 MG TAB PO SCH (08:15)
[2017-09-27] MEDS: Escitalopram Oxalate 10 mg Tablet PO SCH (08:15)
[2017-09-27] MEDS: Carvedilol 25 MG TAB PO SCH ×2 (08:15→20:59)
[2017-09-27] MEDS: Ondansetron ODT 4 MG TAB PO PRN (08:25)
[2017-09-27] MEDS: Estrogens, Conjugated 30 GM TUBE VAG SCH (20:57)
[2017-09-27] MEDS: Simvastatin 20 MG TAB PO SCH (20:58)
[2017-09-27] MEDS: cefTRIAXone\\ROCEPHIN 2 GM in Sodium Chloride 0.9% 100 ML IVPB SCH (20:59)
--- NOTE | 2017-09-28 01:49 | CON ---
DATE OF CONSULTATION: 09/27/2017 INITIAL REASON FOR CONSULTATION: Gross hematuria and urinary tract infection. BRIEF HISTORY: Ms. Camille Amaro is a pleasant 57-year-old -[place] female with a history o f end-stage renal disease, currently on hemodialysis, who developed an E. coli urinary tract infectio n and subsequently had a CBI catheter placed. The patient had developed gross hematuria while on hem odialysis and subsequently was taken to the operating room for evaluation and treatment on 09/21/2017 . The patient was cystoscopically evaluated and underwent bladder biopsy of inflammatory mass and fu lguration of an area greater than 5 cm secondary to bladder fracture. The patient has been on contin uous bladder irrigation since then, and has been resistant to titration to off. Her irrigation was t urned off approximately 2 days ago and she developed recurrent gross hematuria episode with clot rete ntion following that. The patient is not tolerating decreasing the CBI. These findings are not inco nsistent with her history of bladder fracture, which is deep into the patient's bladder. Despite ful guration bleeding may be persistent, particularly in a patient with poor clotting factors. The patie nt has an indwelling CBI catheter at the present time and is on saline CBI. PHYSICAL EXAMINATION: VITAL SIGNS: Temperature is 98.1, pulse 76, respirations 18, O2 saturations 94% on room air, blood p ressure is 99/68. GENERAL: This is a post-stroke -[place]zech female. She does communicate her needs, but has beti y limited vocabulary for communication. She speaks only when she wants to. HEAD, EYES, EARS, NOSE AND THROAT: Extraocular movements are intact. Sclerae are anicteric. Oropha rynx is clear. NECK: Supple. LUNGS: Clear bilaterally. CARDIAC: There is a regular rate and rhythm. ABDOMEN: Soft and nontender. EXTREMITIES: The patient has left arm fistula, which is patent with palpable thrill and machinery li ke murmur on auscultation. GENITOURINARY: An indwelling three-way Bond catheter is in place. This is on saline CBI. There is precipitated blood seen in the patient's Bond drainage line. CBI rate is relatively low at approxi mately four drips per minute. She is not to the point where she is ready to have the CBI discontinue d. ASSESSMENT AND PLAN: 1. Gross hematuria following bladder fracture and subsequent fulguration. The patient's bladder is relatively fragile due to chronic inflammation secondary to pyocystis. She has a deep bladder wall f racture and did undergo fulguration for initial control. The patient continued to have hematuria, pr obably secondary to poor platelet function and depth of fracture. The patient's inflammatory cystiti s may also impact this. 2. 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 Recommend this patient be started on prednisone 1 mg p.o. q. day in addition to her current regimen. 3. Gross hematuria, tend to switch the patient's bladder irrigation from initial saline CBI to steri le water CBI to allow better clearance of clot. 4. Fracture associated hemorrhage, chronic bleeding after a fracture is not uncommon. The patient m ay proceed to requiring additional fulguration. At the present time, I am not anticipating doing destiny t we will see if medical therapy improves the patient's gross hematuria.
[2017-09-28] MEDS: Oxybutynin 5 MG TAB PO SCH (09:26)
[2017-09-28] MEDS: Escitalopram Oxalate 10 mg Tablet PO SCH (09:26)
[2017-09-28] MEDS: predniSONE 1 MG TAB PO SCH (09:26)
[2017-09-28] MEDS: Sevelamer Carbonate 800 MG TAB PO SCH ×3 (09:33→17:11)
[2017-09-28] MEDS: Carvedilol 25 MG TAB PO SCH ×2 (09:35→21:05)
[2017-09-28] MEDS: Epoetin (NON-ESRD) 20,000 UNITS/ML ML IVP SCH (17:10)
[2017-09-28] MEDS: Simvastatin 20 MG TAB PO SCH (21:05)
[2017-09-28] MEDS: cefTRIAXone\\ROCEPHIN 2 GM in Sodium Chloride 0.9% 100 ML IVPB SCH (21:13)
[2017-09-28] MEDS: Estrogens, Conjugated 30 GM TUBE VAG SCH (21:13)
--- NOTE | 2017-09-28 22:06 | PRG ---
DATE OF SERVICE: 09/28/2017 SUBJECTIVE: The patient was seen and examined, does not want to get dialysis today as the patient cl aimed that it is already too late to go down for dialysis. Otherwise, the patient with no new compla int and noted with the following vital signs. PHYSICAL EXAMINATION: VITAL SIGNS: Afebrile with temperature 98.1, pulse 63, respiratory rate of 16, O2 sat 94%, blood pre ssure 110/71. HEENT: Unremarkable with moist oral mucosa. No conjunctival injection or icterus. NECK: Supple. CARDIOVASCULAR: First and second heart sounds were heard. RESPIRATORY: Clear to auscultation. DIGESTIVE: Revealed a benign abdomen with positive bowel sounds. EXTREMITIES: No peripheral edema. SKIN: No new gross rash. LYMPHATICS: No peripheral lymphadenopathy. UROGENITAL SYSTEM: Examination showed evidence of hematuria. IMPRESSION: 1. End-stage renal disease, hemodialysis dependent. 2. Hematuria in the context of bladder or fracture. 3. Anemia, multifactorial. 4. Recurrent urinary tract infection. PLAN: 1. The patient has been started on a low dose steroid by Urology recommendation. We will observe th is patient's hematuria to see whether there is going to be any improvement. 2. Renal replacement therapy (hemodialysis as per patient's schedule). However, the patient skipped today; therefore, we will dialyze this patient tomorrow. 3. Further management to be dependent on the clinical course.
[2017-09-29] MEDS: cefTRIAXone\\ROCEPHIN 2 GM in Sodium Chloride 0.9% 100 ML IVPB SCH (05:46)
[2017-09-29] MEDS: Sevelamer Carbonate 800 MG TAB PO SCH ×3 (07:46→17:39)
[2017-09-29] MEDS: Escitalopram Oxalate 10 mg Tablet PO SCH (07:50)
[2017-09-29] MEDS: predniSONE 1 MG TAB PO SCH (07:50)
[2017-09-29] MEDS: Oxybutynin 5 MG TAB PO SCH (09:05)
[2017-09-29] MEDS: Carvedilol 25 MG TAB PO SCH ×2 (09:05→21:16)
[2017-09-29] MEDS: Epoetin (NON-ESRD) 20,000 UNITS/ML ML IVP SCH (14:00)
[2017-09-29 15:24] LABS: #Basophils 0.1 thou/uL (0.0-0.2); #Eosinphils 0.3 thou/uL (0.0-0.7); #Lymphocytes 1.5 thou/uL (1.20-3.40); #Monocytes 0.8 thou/uL (0.11-0.59); #Neutrophils 6.2 thou/uL (1.40-6.50); %Basophils 0.8 % (0.0-1.0); %Eosinophils 3.1 % (0.0-10.0); %Lymphocytes 16.8 % (21.0-51.0); %Monocytes 9.1 % (0.0-10.0); %Neutrophils 70.2 % (42.0-75.0); Hemoglobin 8.6 g/dL (12.0-16.0); Mean Corpuscular HGB CONC 30.6 g/dL (32.0-36.0); Mean Corpuscular Volume 81.6 fl (81.0-99.0); Mean Platelet Volume 7.9 fL (7.4-10.4); Platelet Count 317 thou/uL (130-400); RBC Distribution Width 20.2 % (11.5-14.5); Red Blood Cell (RBC) Count 3.42 mill/uL (4.20-5.40); White Blood Cell (WBC) Count 8.9 thou/uL (4.8-10.8)
[2017-09-29 15:38] LABS: Anisocytosis MODERATE=16-30 cells (100X) (0-5/hpf); Hypochromia SLIGHT = 6-15 cells (100X) (0-5/hpf); MDiff Complete? YES; Ovalocytes SLIGHT = 2-5 cells (100X) (0-1/hpf); PLT Morphology Comment Appears Adequate; Polychromasia SLIGHT = 2-3 cells (100X) (0-2/hpf)
[2017-09-29 15:41] LABS: Anion Gap 14 mmol/L (10-20); BUN (Urea Nitrogen) 37 mg/dL (9.8-20.1); Calc. Creatinine Clearance 11 mL/min (70-130); Calcium 9.2 mg/dL (7.8-10.44); Carbon Dioxide 29 mmol/L (22-29); Chloride 93 mmol/L (98-107); Estimated GFR-MDRD 7; Glucose 110 mg/dL (70-105); Sodium 131 mmol/L (136-145)
--- NOTE | 2017-09-29 19:02 | CON ---
CONSULTATION/PROGRESS NOTE DATE OF CONSULTATION: 09/29/2017 INITIAL REASON FOR CONSULTATION: Gross hematuria and urinary tract infection. BRIEF HISTORY: Ms. Camille Amaro is a 57-year-old -Vincentian female with a history of end-sta ge renal disease, currently on hemodialysis, developed an E. coli urinary tract infection and subsequ ently had a CBI catheter placed. She developed gross hematuria while on hemodialysis and subsequentl y was taken to the operating room for evaluation and treatment on 09/21/2017. She underwent evaluati on cystoscopically and was noted to have a small inflammatory mass and underwent fulguration of area of greater than 5 cm secondary to a bladder fracture. The patient has been on continuous bladder irr igation since then, and had some relative difficulty with titration to off due to that. I evaluated her last on 09/27/2017 when at that point she had relatively mild hematuria. 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 PHYSICAL EXAMINATION: GENERAL: The patient is currently on hemodialysis at the time of exam, which limits exam somewhat to day. VITAL SIGNS: Temperature 97.7, pulse 65, respirations 16. She is on room air. Last recorded blood pressure was 135/79. HEAD, EARS, EYES, NOSE, AND THROAT: Extraocular movements are intact. Sclerae are anicteric. Oroph arynx is clear. NECK: Supple. LUNGS: Clear bilaterally. CARDIAC: Regular rate and rhythm. ABDOMEN: Soft and nontender. The patient's left arm has been accessed for hemodialysis. LABORATORY STUDIES: The patient's hemoglobin is 9.4 with hematocrit of 30.6 on 09/26/2017. She has current blood glucose of 129 and her last serum chemistry labs look like they were back from 09/20/19. Her creatinine was 7 at that time with a blood urea nitrogen of 28, potassium was 5. ASSESSMENT AND PLAN: 1. Gross hematuria. The patient has relatively minimal hematuria today and appears to be making diaz sonable progress on CBI. Due to persistence of hematuria, I think it would be reasonable to perform a second cystoscopic evaluation to evaluate if there are any additional areas, which may be treated b y fulguration. 2. Current hemodialysis. The patient would be appropriate for cystoscopic evaluation by tomorrow an d I think that is how we are going to proceed. She is on hemodialysis at present. 3. Inflammatory bladder lesions in bladder wall, status post biopsy. The patient will continue on t he prednisone as previously prescribed.
[2017-09-29] MEDS: Simvastatin 20 MG TAB PO SCH (21:16)
[2017-09-29] MEDS: Estrogens, Conjugated 30 GM TUBE VAG SCH (22:16)
[2017-09-30] MEDS: Carvedilol 25 MG TAB PO SCH ×2 (06:43→19:57)
[2017-09-30] MEDS: Sevelamer Carbonate 800 MG TAB PO SCH ×3 (08:31→16:46)
[2017-09-30] MEDS: Escitalopram Oxalate 10 mg Tablet PO SCH ×2 (09:00→14:51)
[2017-09-30] MEDS ORDERED: Fentanyl 100 MCG/2 ML VIAL ONE (10:39)
[2017-09-30] MEDS ORDERED: Phenylephrine HCL 10 MG/ML VIAL ONE (11:10)
[2017-09-30] MEDS ORDERED: PROPOFOL 200 MG/20 ML VIAL ONE (11:36)
[2017-09-30] MEDS ORDERED: Lidocaine 1% PF 5 ML VIAL ONE (11:36)
[2017-09-30] MEDS ORDERED: PHENYLEPHRINE-NS 100 MCG/ML 10 ML SYRINGE ONE (11:36)
[2017-09-30] MEDS ORDERED: Glycopyrrolate 0.2 MG/ML 5 ML SYRINGE ONE (11:36)
[2017-09-30] MEDS ORDERED: cefTRIAXone\\ROCEPHIN 1 GM VIAL ONE (11:41)
[2017-09-30] MEDS ORDERED: Promethazine HCl 25 MG/ML VIAL SLOW IVP PRN (11:48)
[2017-09-30] MEDS ORDERED: Ondansetron HCl/PF 4 MG/2 ML Vial IVP PRN (11:48)
[2017-09-30] MEDS ORDERED: Morphine Sulfate 2 MG/ML SYRINGE SLOW IVP PRN (11:48)
[2017-09-30] MEDS ORDERED: Gentamicin 80 MG/2 ML VIAL ONE (11:56)
[2017-09-30] MEDS: predniSONE 1 MG TAB PO SCH (14:51)
--- NOTE | 2017-09-30 14:52 | OP ---
DATE OF PROCEDURE: 09/30/2017 PREOPERATIVE DIAGNOSES: 1. Gross hematuria, R31.0. 2. Pyocystis with recurrent urinary tract infection, Z87.44. 3. Postmenopausal atrophic vaginitis, N95.2. 4. Urinary clot retention, N32.89. 5. Bladder fracture, N32.9. POSTOPERATIVE DIAGNOSES: 1. Gross hematuria, R31.0. 2. Pyocystis with recurrent urinary tract infection, Z87.44. 3. Postmenopausal atrophic vaginitis, N95.2. 4. Urinary clot retention, N32.89. 5. Bladder fracture, N32.9. OPERATIVE PROCEDURES: 1. Transurethral fulguration of bladder lesion greater than 5 cm, 19621. 2. Intravesical antibiotic administration. BRIEF HISTORY AND INDICATION FOR PROCEDURE: Ms. Camille Amaro is a pleasant 57-year-old Sherrie rican female with history of stroke and recent gross hematuria. The patient has had recurrent Escher ichia coli urinary tract infection and on this visit, was diagnosed with pyocystis with gross hematur ia. She did have a catheter in place and subsequently developed gross hematuria. Cystoscopic evalua tion was previously been performed along with resection and fulguration to gain control of her hemorr haging bladder. We had her on continuous bladder irrigation with an indwelling Bond catheter and af ter over a week's worth of continuous bladder irrigation since the last fulguration procedure, she soriano s persisted in having gross hematuria. She opted to proceed to the operating room today for transure thral resection or fulguration of any bleeding bladder lesions. SPECIMENS REMOVED: None. We did evacuate about 150 mL of formed clot during today's procedure. ESTIMATED BLOOD LOSS: Specific to the procedure 0 mL OPERATIVE FINDINGS: 1. Large amount of clot was removed from the patient's bladder. 2. The patient has healing scab in the bladder. 3. Catheter irritation of the lining of the bladder involved all the current bleeding areas. TECHNICAL PROCEDURE: The patient was appropriately identified in the preoperative holding area, info rmed written consent was obtained. The patient was transported to the operative suite, placed in sup ine position on a cystofluorographic table. General anesthesia was established using an endotracheal airway. The patient was subsequently repositioned in the supine lithotomy position, and prepped and draped in usual sterile fashion. Cystoscopic evaluation was performed. The patient's indwelling 3- way catheter was removed prior to the sterile prep. Cystoscopic evaluation was performed using a 22- [place] cystoscope sheath with a 30-degree lens. Panendoscopic evaluation of the patient's bladder fo und a large scab-like lesion in the dome area of the patient's bladder. Additional scabbed areas fro m previous fulguration were observed. Some of the areas in the patient's bladder had a normal appear ance. The patient had many bleeding areas that were associated with catheter contact. All these are as were bleeding and were subsequently fulgurated. We performed cystoscopic evaluation and subsequen tly placed a resectoscope sheath to allow for adequate clot evacuation of a large amount of clot with in the patient's bladder. We hand irrigated this out using the resectoscope sheath for drainage of t he clot. We irrigated until clear leaving only scab in place. We then performed fulguration of an a diaz of greater than 5 cm of bleeding irritation within the bladder lining. All of the bleeding areas appeared to have been previously in contact with a Bond catheter. At the close of the procedure, w e drained the patient's bladder and then instilled 2 mL of 40 mg per mL gentamicin for a total of 80 mg, which was applied into the patient's bladder the in and out catheter at this stage of the procedu re was withdrawn leaving no catheters in the patient at the close of the procedure. COMPLICATIONS: None. DRAINS AND TUBES: None. A three-way Bond catheter present at the beginning of the procedure was removed during the course of the operation.
[2017-09-30] MEDS: Oxybutynin 5 MG TAB PO SCH (14:56)
--- NOTE | 2017-09-30 15:13 | CON ---
DATE OF CONSULTATION: 09/30/2017 DATE OF HOSPITAL ADMISSION: 09/13/2017 INITIAL REASON FOR CONSULTATION: 1. Gross hematuria. 2. Recurrent urinary tract infection. 3. Concern for possible colovesical fistula which has been ruled out. BRIEF HISTORY: Ms. Camille Amaro is a pleasant 57-year-old -Liberian female with a past hist ory of stroke and resulting right-sided weakness. The patient has developed gross hematuria on this hospitalization and has indwelling three-way Bond catheter at the present time. She has been taken to the operating room once previously on 09/21/2017 at which time she underwent cystoscopic evaluatio n and fulguration of bleeders associated with bladder fracture as well as transurethral resection of inflammatory bladder wall tissue which was subsequently pathologically evaluated as inflammatory proc ess. The patient has had an indwelling three-way Bond catheter since 09/21/2017 has continued to have shona ss hematuria. This is improved since institution of steroid therapy for the patient's inflammatory b ladder condition. However, she continues to have persistent hematuria which continues despite hand i rrigation. PHYSICAL EXAMINATION: VITAL SIGNS: Patient is afebrile with temperature 98, pulse 69, respirations 18, O2 saturation on ro om air is 99% and blood pressure is 138/77. HEAD, EYES, EARS, NOSE, AND THROAT: Extraocular movements are intact. Sclerae are anicteric. Oroph arynx is clear. NECK: Supple. LUNGS: Clear bilaterally. CARDIOVASCULAR: Regular rate and rhythm. ABDOMEN: Soft and nontender. EXTREMITIES: There is a left arm fistula which remains patent and is being used for access approxima tely 24 hours ago. GENITOURINARY: The patient has indwelling three-way Bond catheter and continues to have gross hemat uria. LABORATORY DATA: Patient's white count is 8.9 thousand. Current hemoglobin is 8.6, hematocrit 27.9. She has serum chemistry showing current potassium on 09/29/2017 at 5.0, sodium and chloride are bot h low. Creatinine is 7.59 with blood urea nitrogen 37. Blood glucose this morning is 98. Patient's microbiology culture from 09/13/2017 grew E. coli which was sensitive to all antibiotics ex cept for ampicillin, ciprofloxacin and levofloxacin. Remains sensitive to cephalosporin antibiotics. ASSESSMENT AND PLAN: 1. Continue gross hematuria. We will plan on taking the patient to the operating room for cystoscop y, clot evacuation and fulguration of any bleeding vessels observed. 2. Inflammatory bladder process. The patient has a history of chronic pyocystis and is now on immun osuppressive therapy with prednisone at 1 mg p.o. daily. 3. Recurrent urinary tract infection history. Patient's vagina and the bladder became colonized wit h enteric organism secondary loss of estrogen barrier due to postmenopausal status. She is on Premar in cream vaginally nightly. At the present time, we will continue on that for life. OPERATIVE PLANS: The patient is n.p.o. and will be taken to the operating room today for clot evalua tion and treatment is indicated. Had discussion of patient's progress with patient's family members and informed written consent was o btained from the patient for today's procedure. Over 35 minutes of consultation time exclusive of any procedures performed today was provided to the patient including coordination of care and discussion with family members of patient's various genito urinary pathologic processes.
[2017-09-30] MEDS: Estrogens, Conjugated 30 GM TUBE VAG SCH (19:53)
[2017-09-30] MEDS: Simvastatin 20 MG TAB PO SCH (19:58)
[2017-10-01] MEDS: Sevelamer Carbonate 800 MG TAB PO SCH ×3 (07:59→16:26)
[2017-10-01] MEDS: Escitalopram Oxalate 10 mg Tablet PO SCH (08:00)
[2017-10-01] MEDS: Carvedilol 25 MG TAB PO SCH ×3 (08:01→20:10)
[2017-10-01] MEDS: Oxybutynin 5 MG TAB PO SCH ×2 (08:02→16:22)
[2017-10-01] MEDS: predniSONE 1 MG TAB PO SCH ×2 (08:02→16:23)
[2017-10-01 09:00] LABS: #Lymphocytes 1.2 thou/uL (1.20-3.40); #Monocytes 0.3 thou/uL (0.11-0.59); #Neutrophils 7.7 thou/uL (1.40-6.50); %Basophils 0.2 % (0.0-1.0); %Eosinophils 0.2 % (0.0-10.0); %Lymphocytes 12.6 % (21.0-51.0); %Neutrophils 83.9 % (42.0-75.0); Hemoglobin 9.1 g/dL (12.0-16.0); Mean Corpuscular HGB CONC 30.7 g/dL (32.0-36.0); Mean Corpuscular Hemoglobin 25.2 pg (27.0-31.0); Mean Corpuscular Volume 81.9 fl (81.0-99.0); Mean Platelet Volume 7.9 fL (7.4-10.4); Platelet Count 334 thou/uL (130-400); Red Blood Cell (RBC) Count 3.61 mill/uL (4.20-5.40); White Blood Cell (WBC) Count 9.1 thou/uL (4.8-10.8)
[2017-10-01 09:24] LABS: Anion Gap 15 mmol/L (10-20); BUN (Urea Nitrogen) 27 mg/dL (9.8-20.1); Calc. Creatinine Clearance 14 mL/min (70-130); Calcium 9.6 mg/dL (7.8-10.44); Carbon Dioxide 26 mmol/L (22-29); Chloride 97 mmol/L (98-107); Estimated GFR-MDRD 9; Glucose 190 mg/dL (70-105); Potassium 4.6 mmol/L (3.5-5.1); Sodium 133 mmol/L (136-145)
[2017-10-01 09:25] LABS: Anisocytosis MODERATE=16-30 cells (100X) (0-5/hpf); Band 2 % (5-11); Hypochromia SLIGHT = 6-15 cells (100X) (0-5/hpf); Lymphocytes 16 % (21-51); MDiff Complete? YES; Monocytes 4 % (0-10); Neutrophil 78 % (42-75); PLT Morphology Comment Appears Adequate; Polychromasia SLIGHT = 2-3 cells (100X) (0-2/hpf)
[2017-10-01] MEDS: Epoetin (NON-ESRD) 20,000 UNITS/ML ML IVP SCH (12:04)
[2017-10-01] MEDS: Estrogens, Conjugated 30 GM TUBE VAG SCH (19:17)
[2017-10-01] MEDS: Simvastatin 20 MG TAB PO SCH (20:10)
[2017-10-02] MEDS: Sevelamer Carbonate 800 MG TAB PO SCH (08:25)
[2017-10-02] MEDS: Carvedilol 25 MG TAB PO SCH (08:29)
[2017-10-02] MEDS: predniSONE 1 MG TAB PO SCH (08:29)
[2017-10-02] MEDS: Oxybutynin 5 MG TAB PO SCH (08:29)
[2017-10-02] MEDS: Escitalopram Oxalate 10 mg Tablet PO SCH (08:29)
[2017-10-02] MEDS ORDERED: Nitrofurantoin Monohyd/M-Cryst 100 MG CAP PO SCH (09:00)
[2017-10-02 10:46] VITALS: BP 112/64; TEMP 98.1
--- NOTE | 2017-10-03 14:08 | DIS ---
ADMITTING DIAGNOSES: 1. Possible rectal bleeding 2. Severe urinary tract infection. 3. Weakness, dizziness, unstable gait. 4. Chronic anemia. 5. Hypertension. 6. Status post cerebrovascular accident. 7. End-stage renal disease. FINAL DIAGNOSES: 1. Fracture of the urinary bladder with severe hematuria, improved. 2. Severe anemia secondary to #1, status post transfusion. 3. Severe urinary tract infection, improving. 4. No evidence of gastrointestinal bleeding. 5. Weakness and dizziness. 6. Unstable gait. 7. Severe deconditioning. 8. History of cerebrovascular accident. 9. End-stage renal disease, on hemodialysis. 10. Hypertension, uncontrolled, improved. BRIEF SUMMARY OF HOSPITAL COURSE: Ms. Amaro is a 57-year-old female [facility] of possible gastrointestinal bleeding with anemia. The patient's hemoglobin on admission was 8.7 and dropped to 7.8 later. Initially thought she may have GI bleeding. A consultation was done with GI. The patient was seen by Dr. Meadows. He felt on rectal exam, there was no evidence of any ble eding. He says to do colonoscopy. So patient underwent colonoscopy and there was no evidence of any acute bleeding. Colonoscopy was done by Dr. Myles. He found a 6 mm polyp removed from ascending co gabriel and this showed scattered diverticulosis in the transverse and left colon. Otherwise, no bleedin g. The patient did have a severe urinary tract infection. Initially, it was felt she may have a fis ashkan. So Urology consult was done. The patient was seen by Dr. Petey Howard. He felt the patient soriano s possibly polycystitis as well as she had recurrent UTI. She may not be emptying the bladder comple tely. She was started on therapy as well. The patient was monitored in the next few days. Bladder ultrasound shows a very limited distance of urine in bladder. A ANTHROPOLOGICAL LINGUIST consult was done. The patient w as ordered a pelvic ultrasound which showed no evidence of uterus without any pelvic mass. There was some echogenic material in the urine and bladder which could represent a blood clot. The patient co uld possibly have bleeding in the bladder. The patient was reevaluated with the urologist. He sugge sted cystoscopy for hematuria and possible papillary necrosis in the bladder. The patient underwent cystoscopy which revealed no evidence of any tumor or necrosis. It did reveal fractured bladder. So when the hematuria started she was started on continuous bladder irrigation which was continued even after the cystoscopy and urologist felt the hematuria should clear up in next 2-3 days after which t he catheter can be removed, but hematuria did not resolve. So patient underwent cystoscopy again and the urologist felt that Bond catheter is causing irritation causing more bleeding. Otherwise, ther e was no evidence of any focal plane found bleeding. There was a large amount of clot present in the bladder, this was removed. So her Bond catheter was removed and she was monitored. Her continuous bladder irrigation was stopped. In the next couple of days the patient did void urine, but no hemat uria and she was feeling much better. She was still not ambulating, still feels weak. She was evalu ated for [facility] placement for residential and she was accepted at [facility], so she is being discharged there. At the time of discharge, she was stable. Her vital signs were st able. Lungs clear. Heart sounds regular. Abdomen soft, nontender. Bowel sounds present. DISCHARGE MEDICATIONS: Include simvastatin 20 mg daily, Ditropan 5 mg daily, Imdur 60 mg daily, [place] pro 10 mg daily, aspirin 81 mg daily, Tylenol p.r.n., Coreg 25 b.i.d., estrogen cream daily, predniso ne 1 mg daily, Macrobid 100 mg b.i.d. for 10 days, Renvela 2400 mg b.i.d., Zofran p.r.n. DISCHARGE INSTRUCTIONS: The patient will continue physical therapy at the [facility] and will get dialysis 3 times a week.
== END 2017-10-02 11:53 | DRG 668 ==
LOC: ERS 18:24 → 2SE 09-13 00:31 → T4-B 09-18 15:29
PROVIDERS: ADMIT Internal Medicine; ATTEND Internal Medicine
PROC: 0DBK8ZX Excision of Ascending Colon, Via Natural or Artificial Opening Endoscopic, Diagnostic (ICD-10-PCS; principal; 2017-09-14)
PROC: 0TBB8ZX Excision of Bladder, Via Natural or Artificial Opening Endoscopic, Diagnostic (ICD-10-PCS; 2017-09-21)
PROC: BT140ZZ Fluoroscopy of Kidneys, Ureters and Bladder using High Osmolar Contrast (ICD-10-PCS; 2017-09-21)
PROC: 30233N1 Transfusion of Nonautologous Red Blood Cells into Peripheral Vein, Percutaneous Approach (ICD-10-PCS; 2017-09-24)
PROC: 0T5B8ZZ Destruction of Bladder, Via Natural or Artificial Opening Endoscopic (ICD-10-PCS; 2017-09-30)
DX: N30.81 Other cystitis with hematuria (principal); N18.6 End stage renal disease; E66.01 Morbid (severe) obesity due to excess calories; I12.0 Hypertensive chronic kidney disease with stage 5 chronic kidney disease or end stage renal disease; I69.351 Hemiplegia and hemiparesis following cerebral infarction affecting right dominant side; E11.22 Type 2 diabetes mellitus with diabetic chronic kidney disease; Z99.2 Dependence on renal dialysis; Z79.82 Long term (current) use of aspirin; R33.9 Retention of urine, unspecified; N95.2 Postmenopausal atrophic vaginitis; K57.30 Diverticulosis of large intestine without perforation or abscess without bleeding; D63.1 Anemia in chronic kidney disease; N32.9 Bladder disorder, unspecified; E78.5 Hyperlipidemia, unspecified; Z90.710 Acquired absence of both cervix and uterus; D12.2 Benign neoplasm of ascending colon; Z68.35 Body mass index [BMI] 35.0-35.9, adult; N32.89 Other specified disorders of bladder
CPT/HCPCS: 36415; 36416; 36430; 70450; 74178; 74410; 74420; 76856; 80048; 80053; 81003; 81015; 82274; 83605; 83735; 85014; 85018; 85025; 85610; 85730; 86850; 86900; 86901; 87040; 87077; 87086; 87186; 87340; 88305; 90935; 96374; A4216; C1758; C1769; C9113; G0257; G8978-GP-CM; G8978-GP-CN; G8979-GP-CK; G8987-GO-CM; G8988-GO-CK; J0696; J0885; J1580; J2001; J2370; J2704; J3010; J7050; P9016; Q0162; Q9961

== ENCOUNTER 2018-11-18 21:57 | Inpatient (IN) | payer MEDICARE ==
[2018-11-19] MEDS ORDERED: Lidocaine 1% (PF) 30 ML VIAL ONE (02:00)
[2018-11-19] MEDS ORDERED: Lidocaine 1% PF 5 ML VIAL ONE (02:01)
[2018-11-19 03:12] LABS: ALT (SGPT) 10 U/L (8-55); AST (SGOT) 13 U/L (5-34); Albumin 3.7 g/dL (3.5-5.0); Alkaline Phosphatase 86 U/L (40-150); Anion Gap 16 mmol/L (10-20); BUN (Urea Nitrogen) 52 mg/dL (9.8-20.1); Bilirubin, Total 0.4 mg/dL (0.2-1.2); Calc. Creatinine Clearance 0 mL/min (70-130); Calcium 9.3 mg/dL (7.8-10.44); Carbon Dioxide 29 mmol/L (22-29); Chloride 97 mmol/L (98-107); Estimated GFR-MDRD 8; Globulin 4.1 g/dL (2.4-3.5); Glucose 116 mg/dL (70-105); Lipase 81 U/L (8-78); Protein, Total 7.8 g/dL (6.0-8.3); Sodium 137 mmol/L (136-145)
[2018-11-19] MEDS ORDERED: Acetaminophen 500 MG TAB ONE (03:17)
[2018-11-19 03:46] LABS: #Eosinphils 0.1 thou/uL (0.0-0.7); #Lymphocytes 1.9 thou/uL (1.20-3.40); #Monocytes 1.3 thou/uL (0.11-0.59); #Neutrophils 10.2 thou/uL (1.40-6.50); %Basophils 0.2 % (0.0-1.0); %Eosinophils 0.8 % (0.0-10.0); %Lymphocytes 13.7 % (21.0-51.0); %Monocytes 9.9 % (0.0-10.0); %Neutrophils 75.5 % (42.0-75.0); Hemoglobin 10.4 g/dL (12.0-16.0); Mean Corpuscular HGB CONC 32.4 g/dL (32.0-36.0); Mean Corpuscular Hemoglobin 25.6 pg (27.0-31.0); Mean Corpuscular Volume 78.9 fL (78.0-98.0); Mean Platelet Volume 7.6 fL (7.4-10.4); Platelet Count 305 thou/uL (130-400); RBC Distribution Width 12.6 % (11.5-14.5); Red Blood Cell (RBC) Count 4.06 mill/uL (4.20-5.40); White Blood Cell (WBC) Count 13.5 thou/uL (4.8-10.8)
[2018-11-19] MEDS ORDERED: Ondansetron PF 4 MG/2 ML Vial SLOW IVP PRN (15:18)
[2018-11-19] MEDS ORDERED: Morphine 4 MG/ML VIAL SLOW IVP PRN (15:18)
[2018-11-19 16:19] VITALS: BMI 37.2
[2018-11-19] MEDS ORDERED: cefTRIAXone\\ROCEPHIN 2 GM in Sodium Chloride 0.9% 100 ML IVPB SCH (16:45)
[2018-11-19] MEDS: Acetaminophen 500 MG TAB PO PRN (17:43)
[2018-11-19] MEDS ORDERED: Prevnar 13-Val Conj/PF 0.5 ML SYRINGE IM ONE (18:00)
[2018-11-19] MEDS ORDERED: Sevelamer Carbonate 800 MG TAB PO PRN (18:49)
[2018-11-19] MEDS ORDERED: Ondansetron ODT 4 MG TAB PO PRN (18:51)
[2018-11-19] MEDS: Carvedilol 25 MG TAB PO SCH (21:10)
--- NOTE | 2018-11-19 22:06 | CON ---
DATE OF CONSULTATION: 11/19/2018 REASON FOR CONSULTATION: 1. Gross hematuria. 2. Urinary retention. 3. History of recurrent E. coli urinary tract infection. 4. Postmenopausal status. HISTORY OF PRESENT ILLNESS: Ms. Camille Amaro is a pleasant 58-year-old female, dialysis patient with a history of recurrent E. coli urinary tract infection. Ureteral stricture disease, gross hematuria, previous bladder fracture and past pyocystitis and gross hematuria. On this admission, the patient presents with gross hematuria and apparent clot in her bladder. She did undergo a 3-way Bond catheter placement in the emergency department and is now on continuous bladder irrigation as recommended. Ms. Amaro reports that her gross hematuria started immediately after her last dialysis. She is due for dialysis tomorrow. The patient reports developing gross hematuria to her diapers at that point. Ms. Amaro is currently in a shelter and is not able to fully take care of herself or comprehend all of her issues since her stroke. The patient's sister is active in her care and is a good historian. PAST MEDICAL HISTORY: 1. End-stage renal disease, currently on dialysis. 2. ESRD is secondary to hypertension. 3. Recurrent urinary tract infection with E. coli, having a past history of resistant ciprofloxacin and ampicillin. 4. Hypertension, poorly controlled. 5. History of cerebrovascular accident resulting in right-sided deficits. 6. Past histories of gross hematuria, ureteral stricture disease and dysfunctional bladder with pyocystis. PAST SURGICAL HISTORY: 1. Status post hysterectomy with bilateral salpingo-oophorectomy (CRISELDA). 2. Previous history of bilateral tubal ligation. 3. Status post open cholecystectomy. 4. History of breast biopsy. 5. Left arm fistula placement for hemodialysis. REVIEW OF SYSTEMS: The patient is not currently capable today of fully participating in full review of systems. SOCIAL HISTORY: The patient is now residing in a shelter facility. She is not a current smoker or consumer of alcohol. PHYSICAL EXAMINATION: VITAL SIGNS: Patient's current temperature is 98.8, pulse 80, respirations 16, room air O2 saturation is 98%, blood pressure is 132/77. GENERAL: This is a pleasant awake, alert, white female. She does not appear to be disoriented as she has in the past with delirium. The patient is able to tell me that she has a bit of a backache on that area. She reports the catheter bothers her, but does not have focal pain complaints associated with the catheter. HEAD, EYES, EARS, NOSE, AND THROAT: Extraocular movements are intact. Sclerae anicteric. Oropharynx is clear. NECK: Supple. LUNGS: Clear to auscultation bilaterally. CARDIAC: Regular rate and rhythm without murmur, rub, or gallop. ABDOMEN: Soft, obese, and nontender. GENITOURINARY: There is an indwelling three-way Bond catheter, which is draining light red to peach colored urine. The irrigation bag is suspended about approximately 2 feet above the patient's abdomen as recommended. EXTREMITIES: The patient has a left upper extremity hemodialysis access. She is patent with a palpable thrill and a bruit on auscultation. EXTREMITIES: Appear within normal limits. LABORATORY STUDIES: A CBC obtained 11/19/2018 at 3:25 a.m. today demonstrates presence of white blood cells at 13,500 with a left shift at 75.5%. Hemoglobin is 10.4 with hematocrit of 32. REVIEW OF LABORATORY STUDIES: Show previous urine cultures for this patient from 09/13/2017 showing resistance to ciprofloxacin and ampicillin as was previously noted as well as levofloxacin. It did show relative sensitivity against many IV cephalosporins including ceftriaxone. ASSESSMENT AND PLAN: 1. Gross hematuria, likely secondary to multiple causes including relative anticoagulation effects of uremia, hemodialysis or platelet effects and possible use of anticoagulants on hemodialysis. At the present time, we should plan on minimizing heparin or other anticoagulant exposures in this patient beyond what is required for her hemodialysis. 2. Infectious disease's concern is patient's urine likely will grow Escherichia coli based on past culture results. This would be sensitive to ceftriaxone in most cases, if the previous culture holds. 3. Pyocystis. This patient would benefit from daily or even weekly intermittent catheterization with irrigation. At present time, she will simply need to recover from whatever the process is causing her symptoms. She may well have pyelonephritis requiring longer-term use of antibiotics. We did go ahead and administer a dose of ceftriaxone. 4. Low capacity bladder with relatively stiff wall, overdistention of the bladder is strictly to be avoided and this likely would occur with high irrigation pressure heads. Clot obstruction could cause a repeat rupture event as was observed last year. At present time, I would recommend minimizing the overall pressure in the urinary system such that there is not more than about 20 cm of total water pressure. 5. History of hematuria evaluation. This patient has undergone a previous complete hematuria evaluation just over 1 year ago. At the present time, I think she would be well managed with conservative management. If her hematuria persist, we will plan on taking her to the operating room, but at present time, I see no reason to osei into that. We will continue her on continuous bladder irrigation and see how we do. TIME SPENT: Over 70 minutes of consultation and assessment time was spent in evaluation of this patient today. Job ID: [id number]
--- NOTE | 2018-11-20 00:09 | CON ---
DATE OF CONSULTATION: CONSULTING PHYSICIAN: Law Parish MD REASON FOR CONSULTATION: Need for maintenance hemodialysis. IMPRESSION: 1. End-stage renal disease, hemodialysis dependent on a Sunday, Sunday, and Sunday schedule. 2. Hematuria, likely in the context of urinary tract infection. PLAN: 1. The patient is to undergo dialysis here tomorrow in accordance with the schedule with ultrafiltration as tolerated by hemodynamics. 2. Urology on the case. The patient is currently undergoing bladder irrigation. HISTORY OF PRESENT ILLNESS: This is a 58-year-old female patient with end-stage renal disease, on hemodialysis, Sunday, Sunday and Sunday schedule, who presented here with gross hematuria. The patient is now being evaluated by Urology, treated with bladder irrigation, but the need for maintenance hemodialysis necessitated this renal consultation. PAST MEDICAL HISTORY: Significant for end-stage renal disease, on dialysis, hypertension, diabetes, stroke, dyslipidemia. MEDICATIONS: Reviewed as documented on [employer]. ALLERGIES: NO KNOWN DRUG ALLERGIES. FAMILY HISTORY: Not related to present illness. SOCIAL HISTORY: No alcohol, no tobacco, no illicit drug use. REVIEW OF SYSTEMS: As documented in the body of the history. All other systems reviewed and found not to be significantly related to present illness. PHYSICAL EXAMINATION: GENERAL: The patient was found not to be in any obvious distress, noted with the following vital signs. VITAL SIGNS: Afebrile, temperature 98.8, pulse 80, respiratory rate of 16, O2 saturations were 98%, and blood pressure 132/77. HEENT: Unremarkable. CARDIOVASCULAR: First and second sounds were heard. RESPIRATORY: Clear to auscultation. DIGESTIVE: Revealed a benign abdomen. Positive bowel sounds. EXTREMITIES: No peripheral edema. SKIN: No new gross or rash. LYMPHATICS: No peripheral lymphadenopathy. SUMMARY: A 58-year-old female patient with end-stage renal disease, who presented here with gross hematuria. Thank you for this consultation. We will follow with you. Job ID: [id number]
[2018-11-20] MEDS: Aspirin 81 mg Enteric Coated Tablet PO SCH (08:09)
[2018-11-20] MEDS: Atorvastatin Calcium 10 MG TAB PO SCH (08:09)
[2018-11-20] MEDS: Cinacalcet HCl 30 MG TAB PO SCH (08:09)
[2018-11-20] MEDS: Carvedilol 25 MG TAB PO SCH ×2 (08:09→20:32)
[2018-11-20] MEDS: Ergocalciferol 1.25 MG(50,000 UNITS) CAP PO SCH (08:09)
[2018-11-20] MEDS: Sevelamer Carbonate 800 MG TAB PO SCH ×3 (08:09→18:43)
[2018-11-20] MEDS: Estrogens, Conjugated 30 GM TUBE VAG SCH (08:10)
[2018-11-20] MEDS: Escitalopram Oxalate 10 mg Tablet PO SCH (08:10)
[2018-11-20] MEDS: Polyethylene Glycol 3350 17 GM Packet PO SCH (08:11)
[2018-11-20] MEDS: Oxybutynin 5 MG TAB PO SCH (08:11)
[2018-11-20 11:39] LABS: HBSAg Index 0.38 S/CO (0-0.99); Hep B Surf Ag Non-Reactive S/CO (NonReactive)
--- NOTE | 2018-11-20 12:09 | HP ---
CHIEF COMPLAINT: Gross hematuria and urinary retention. HISTORY OF PRESENT ILLNESS: Ms. Amaro is a 58-year-old Afro-[place] female with past medical history of end-stage renal disease on hemodialysis, hypertension, and history of recurrent UTI, was noted to have urethral bleeding at the [facility]. The patient initially did not have much bleeding, while later the bleeding got worse, that is why the patient was sent to the hospital. She did not have an abdominal pain. No fever. No dizziness. No headache. The hematuria was gross. The patient did have gross hematuria last year due to fracture of the urinary bladder. She has also had pyocystitis at that time, but it got resolved with treatment. The patient was sent to the ER, where she was evaluated and found to have gross hematuria and she was hemodynamically stable. She was started on continuous bladder irrigation. Admitted for further evaluation and management. A Urology consult is requested. PAST MEDICAL HISTORY: 1. End-stage renal disease on hemodialysis. 2. Hypertension. 3. Hyperlipidemia. 4. History of CVA with the right-sided hemiparesis. 5. History of gross hematuria due to urethral stricture as well as a bladder fracture and pyocystitis. PAST SURGICAL HISTORY: Status post cholecystectomy, status post hysterectomy, history of breast biopsy, and history of left arm fistula placement for hemodialysis. CURRENT MEDICATIONS: The patient is on; 1. MiraLAX 17 g daily. 2. Vitamin D every week 50,000 units. 3. Sensipar daily 4. Isosorbide mononitrate 60 mg daily. 5. Premarin cream daily. 6. Lexapro 10 mg daily. 7. Coreg 25 b.i.d. 8. Aspirin 81 mg daily. 9. Renvela 1600 mg t.i.d. 10. Ditropan 5 mg daily. 11. Zofran p.r.n. 12. Zocor 20 mg at bedtime. ALLERGIES: NKDA. FAMILY HISTORY: Nothing contributory. SOCIAL HISTORY: The patient lives in [facility]. No history of smoking. No history of alcohol. REVIEW OF SYSTEMS: CARDIOVASCULAR: No chest pain. No shortness of breath. RESPIRATORY: No cough or fever. GASTROINTESTINAL: No nausea or vomiting. GENITOURINARY: She has hematuria in gross. PHYSICAL EXAMINATION: GENERAL: The patient is alert, awake, and oriented x3. VITAL SIGNS: Temperature 98, pulse 62, respiratory rate 20, blood pressure 130/ 70. HEENT: Head is normocephalic and atraumatic. Pupils are equal and reactive. Nasopharynx is pale and dry. Hard and soft, no lesions. SKIN: Turgor decreased. NECK: Supple. No JVD. LUNGS: Bilateral air entry. No rales. No rhonchi. HEART: S1, S2. Regular. ABDOMEN: Soft. No distention. No tenderness. Normal bowel sounds. RECTAL: Deferred. GENITOURINARY: She has indwelling Bond. LABORATORY DATA: CBC shows WBC 13, hemoglobin 10, hematocrit 32, and platelets 305. Metabolic panel; sodium 137, potassium 5, chloride 97, C02 29, blood urea nitrogen 52, creatinine 6.79, glucose 116. ASSESSMENT: 1. Gross hematuria, possibly due to pyocystitis. 2. End-stage renal disease on hemodialysis. 3. Hypertension. 4. Status post cerebrovascular accident with right hemiparesis. 5. Hyperlipidemia. 6. Anemia. PLAN: 1. Vital signs q.4 hours. 2. Activities tolerated. 3. Allergies, NKDA. 4. Hep-Lock. 5. Rocephin 2 g IV piggyback daily. 6. Continue her [facility]pc medications. 7. Nephrology consult for dialysis. 8. Urology consult. Job ID: [id number]
--- NOTE | 2018-11-20 22:23 | PRG ---
DATE OF SERVICE: 11/20/2018 REASON FOR CONSULTATION: 1. Gross hematuria. 2. End-stage renal disease, currently on hemodialysis. BRIEF HISTORY: Ms. Camille Amaro is a very pleasant 58-year-old female with an unfortunate history of end-stage renal disease secondary to hypertension. She was admitted on 11/19/2018. I was consulted on the same day. I am acquainted with this patient from previous hospitalization about 1 year ago with an almost identical history. The patient has a history of urethral stricture disease, gross hematuria, and previous bladder fracture as well as past pyocystis with associated retention. The patient underwent a 3-way Bond catheter placement in the emergency department and has been on continuous bladder irrigation while on the floor. She has been making gradual progress, but has had 1 clot retention episode since admission. We have her on low-pressure continuous bladder irrigation. Ms. Amaro is comfortable tonight, but did have 1 clot retention episode during the day. Please see my consultation from 11/19/2018 for past historical details. PHYSICAL EXAMINATION: VITAL SIGNS: The patient is afebrile with a temperature of 98.8, pulse 91, respirations 16, O2 saturation is 93% on room air, and blood pressure is 123/60. Interval events, patient had hemodialysis today. HEAD, EYES, EARS, NOSE, AND THROAT: Extraocular movements are intact. Sclerae anicteric. Oropharynx is clear. NECK: Supple. LUNGS: Clear to auscultation bilaterally. CARDIAC: Regular rate and rhythm without murmur, rub, or gallop. ABDOMEN: Soft and nontender. PELVIC: Indwelling Bond catheter is in place. It is draining peach colored urine on continuous bladder irrigation at a reasonably high rate tonight. There are a few small punctate clots observed in the catheter line. EXTREMITIES: Appear within normal limits except for the left arm, which has a hemodialysis access graft, which was accessed today. LABORATORY STUDIES: There are no new chemistries or hematologic results for review. Microbiology, the patient had a urine culture on 09/13/2017. They grew E coli. She has had cultures drawn from her central line via the right common femoral access on 11/19/2018, but neither of those cultures show any growth at this point. ASSESSMENT AND PLAN: 1. History of pyocystis with recent urinary tract infection and development of gross hematuria. The patient has a relatively small amount of urine output in her bladder and unfortunately does not drain well secondary to urethral stricture disease. She probably would benefit from intermittent catheterization as an outpatient to be performed at least once per day with bladder irrigation. 2. Gross hematuria. This is not resolved at this point. The patient will remain on continuous bladder irrigation. She may need to undergo cystoscopy with fulguration, but I certainly will delay that evaluation until the hematuria has cleared somewhat. 3. End-stage renal disease. The patient is on hemodialysis and has been evaluated by Dr. Foy and has undergone hemodialysis today. Over 35 minutes of consultation and assessment time was spent in evaluation and assessment of this patient today. Job ID: [id number]
[2018-11-21] MEDS: Sevelamer Carbonate 800 MG TAB PO SCH ×3 (09:10→17:24)
[2018-11-21] MEDS: Aspirin 81 mg Enteric Coated Tablet PO SCH (09:11)
[2018-11-21] MEDS: Atorvastatin Calcium 10 MG TAB PO SCH (09:11)
[2018-11-21] MEDS: Carvedilol 25 MG TAB PO SCH ×2 (09:11→20:24)
[2018-11-21] MEDS: Oxybutynin 5 MG TAB PO SCH (09:12)
[2018-11-21] MEDS: Cinacalcet HCl 30 MG TAB PO SCH (09:12)
[2018-11-21] MEDS: Escitalopram Oxalate 10 mg Tablet PO SCH (09:12)
[2018-11-21] MEDS: Estrogens, Conjugated 30 GM TUBE VAG SCH ×2 (09:12→10:11)
[2018-11-21] MEDS: Polyethylene Glycol 3350 17 GM Packet PO SCH (09:12)
[2018-11-21 10:49] LABS: #Eosinphils 0.4 thou/uL (0.0-0.7); #Lymphocytes 1.9 thou/uL (1.20-3.40); #Monocytes 0.9 thou/uL (0.11-0.59); #Neutrophils 5.3 thou/uL (1.40-6.50); %Basophils 0.6 % (0.0-1.0); %Eosinophils 4.2 % (0.0-10.0); %Lymphocytes 22.3 % (21.0-51.0); %Neutrophils 61.9 % (42.0-75.0); Hemoglobin 8.8 g/dL (12.0-16.0); Mean Corpuscular Hemoglobin 25.1 pg (27.0-31.0); Mean Corpuscular Volume 78.6 fL (78.0-98.0); Mean Platelet Volume 8.1 fL (7.4-10.4); Platelet Count 282 thou/uL (130-400); RBC Distribution Width 12.3 % (11.5-14.5); Red Blood Cell (RBC) Count 3.49 mill/uL (4.20-5.40); White Blood Cell (WBC) Count 8.5 thou/uL (4.8-10.8)
[2018-11-21 11:09] LABS: Anion Gap 17 mmol/L (10-20); BUN (Urea Nitrogen) 40 mg/dL (9.8-20.1); Calc. Creatinine Clearance 14 mL/min (70-130); Calcium 8.7 mg/dL (7.8-10.44); Carbon Dioxide 27 mmol/L (22-29); Chloride 100 mmol/L (98-107); Estimated GFR-MDRD 8; Glucose 126 mg/dL (70-105); Potassium 4.5 mmol/L (3.5-5.1); Sodium 139 mmol/L (136-145)
--- NOTE | 2018-11-21 20:08 | PRG ---
DATE OF SERVICE: 11/21/2018 SUBJECTIVE: The patient is seen and examined. OBJECTIVE: VITAL SIGNS: Noted with the following vital signs; afebrile, temperature 98.3, pulse 74, respiratory rate of 16, O2 saturations of 98% with blood pressure 132/63. HEENT: Unremarkable. Moist oral mucosa. No conjunctival injection or icterus. NECK: Supple. CARDIOVASCULAR: First and second heart sounds were heard. RESPIRATORY: Clear to auscultation. DIGESTIVE: Revealed a benign abdomen. Positive bowel sounds. EXTREMITIES: No peripheral edema. SKIN: No new gross rash. LYMPHATICS: No peripheral lymphadenopathy. IMPRESSION: 1. End-stage renal disease, on Sunday, Sunday, and Sunday schedule. 2. Hematuria in the context of urinary tract infection. 3. Urinary tract infection. PLAN: 1. We will continue current treatment. 2. The patient to be dialyzed tomorrow in accordance with the schedule. 3. Further management to be dependent on the clinical course. Job ID: [id number]
--- NOTE | 2018-11-22 08:44 | PRG ---
DATE OF SERVICE: 11/21/2018 REASON FOR CONSULTATION: 1. Gross hematuria. 2. End-stage renal disease, currently on hemodialysis. BRIEF HISTORY: Ms. Camille Amaro is a very pleasant 58-year-old female with unfortunate history of end-stage renal disease secondary to hypertension. She was admitted on 11/19/2018, due to gross hematuria and apparent clot retention. I was consulted to see and evaluate her on the day of admission which was 11/19/2018. Interestingly, this patient is previously known to me from a hospitalization almost 1 year ago with almost identical history. She has history of urethral stricture disease, gross hematuria and a previous bladder fracture as well as past pyocystis with associated urinary retention. The patient underwent emergency room placement of a 3-way Bond catheter and has been on continuous bladder irrigation while she has been here in the hospital. The patient has done well over the last 24 hours with decreasing gross hematuria and has only used about 2 L of irrigation to maintain a reasonably clear bladder. PHYSICAL EXAMINATION: VITAL SIGNS: The patient is afebrile with a current temperature of 98, pulse 75, respirations 16, O2 saturation on room air is 95%, and blood pressure is 117/66. GENERAL: This is a pleasant awake, alert, GCS 15, female in no distress. The patient does report she has had some discomfort from the indwelling Bond catheter and would like to have that removed. LUNGS: Clear to auscultation. CARDIAC: Regular rate and rhythm. Left arm has a patent fistula. ABDOMEN: Soft and nontender. : Indwelling Bond catheter remains in place on extremely low rate CBI generating pink colored urine of a very light shade. The patient underwent Bond catheter removal today without consequence. A StatLock device was securing the patient's catheter, but not through a position, which would prevent tension on the catheter. EXTREMITIES: As noted, left upper extremity fistula and some edema in the bilateral lower extremities bilaterally. LABORATORY STUDIES: The patient's white count today down to 8.5 from 13.5 on admission. Hemoglobin is 8.8 with hematocrit of 27.4. There is no left shift on today's labs at 61.9%, previously at 75.5% neutrophil count and ANC is down to 5.3 from 10.2. Serum chemistries show patient's creatinine currently at 6.57, blood urea nitrogen at 40. Serum glucose at 126. Other electrolytes within normal limits. ASSESSMENT: 1. Gross hematuria due to multiple factors, most likely pyocystis related. The patient a year ago was found to have a bladder fracture after initiation of continuous bladder irrigation. We believe that her bladder was overdistended at that point. The patient's hematuria has cleared up substantially over the last 24 hours and we are going to try voiding trial in this patient. 2. History of urethral stricture disease. The patient will continue to have estrogen cream applied for her postmenopausal atrophic vaginitis and urethral stricture disease history. 3. Causation of recurrent urinary tract infection and pyocystis. The patient makes a very small amount of urine each day and as a consequence has relatively long dwell times between voids. In addition is not clear that the patient's bladder empties completely when she does void. I am recommending that the patient have a bladder scan in the morning to see if she is a urine retainer at all and a clean catheterization performed to drain the patient's bladder and obtain urine for culture. At the present time, I think the patient's urinary tract infection type presentation is mostly resolved. 4. Gross hematuria. This is mostly resolved at this point. The patient did have a complete and thorough hematuria evaluation 1 year ago. Although, this is a new gross hematuria episode, I do not think that we will learn enough from a repetition of her previous OR evaluation to make this worthwhile at this point. I would prefer to avoid the operating room unless the patient goes back into clot retention tomorrow with her Bond catheter out. If this occurs, we will plan on taking her to the operating room for cystoscopy, clot evacuation and fulguration. Job ID: [id number]
[2018-11-22] MEDS ORDERED: Rocuronium Bromide 10 MG/ML (10ML VIAL) ONE (10:59)
[2018-11-22] MEDS ORDERED: PROPOFOL 200 MG/20 ML VIAL ONE (10:59)
[2018-11-22] MEDS ORDERED: Esmolol 100 MG/10 ML VIAL ONE (10:59)
[2018-11-22] MEDS ORDERED: Dexamethasone 20 MG/5 ML VIAL ONE (10:59)
[2018-11-22] MEDS ORDERED: Glycopyrrolate 0.2 MG/ML 5 ML SYRINGE ONE (10:59)
[2018-11-22] MEDS ORDERED: Ondansetron PF 4 MG/2 ML Vial ONE (10:59)
[2018-11-22] MEDS: Cinacalcet HCl 30 MG TAB PO SCH (13:26)
[2018-11-22] MEDS: Sevelamer Carbonate 800 MG TAB PO SCH ×2 (13:26→17:03)
[2018-11-22] MEDS: Aspirin 81 mg Enteric Coated Tablet PO SCH (13:26)
[2018-11-22] MEDS: Atorvastatin Calcium 10 MG TAB PO SCH (13:26)
[2018-11-22] MEDS: Escitalopram Oxalate 10 mg Tablet PO SCH (13:27)
[2018-11-22] MEDS: Oxybutynin 5 MG TAB PO SCH (13:27)
[2018-11-22] MEDS: Polyethylene Glycol 3350 17 GM Packet PO SCH (13:27)
[2018-11-22] MEDS: Estrogens, Conjugated 30 GM TUBE VAG SCH (13:28)
[2018-11-22] MEDS: Carvedilol 25 MG TAB PO SCH ×3 (17:03→23:17)
[2018-11-22] MEDS ORDERED: cefTRIAXone\\ROCEPHIN 1 GM VIAL ONE (19:11)
[2018-11-22] MEDS ORDERED: Sodium Chloride 0.9% 100 ML ONE ×2 (19:12)
[2018-11-22] MEDS ORDERED: Fentanyl 100 MCG/2 ML VIAL ONE (19:24)
[2018-11-22] MEDS ORDERED: Iothalamate Meglumine 60% 50 ML VIAL FS ONE (19:52)
--- NOTE | 2018-11-22 20:13 | PRG ---
DATE OF SERVICE: 11/22/2018 SUBJECTIVE: The patient is seen and examined. OBJECTIVE: VITAL SIGNS: Noted with the following vital signs: Afebrile, temperature 97.4, pulse 65, respiratory rate of 16, O2 saturation of 96%, blood pressure 138/81. HEENT: Unremarkable. Moist oral mucosa. No conjunctival injection or icterus. NECK: Supple. CARDIOVASCULAR SYSTEM: First and second heart sounds were heard. RESPIRATORY SYSTEM: Clear to auscultation. DIGESTIVE SYSTEM: Revealed a benign abdomen with positive bowel sounds. EXTREMITIES: No peripheral edema. SKIN: No new gross rash. LYMPHATICS: No peripheral lymphadenopathy. IMPRESSION: 1. End-stage renal disease, hemodialysis dependent. 2. Anemia. 3. Hematuria in the context of urinary tract infection. PLAN: 1. We will continue hemodialysis per the patient's schedule of Sunday, Sunday, and Sunday. 2. Further management will be dependent on the clinical course. Job ID: [id number]
[2018-11-22] MEDS ORDERED: B & O ONE (21:15)
--- NOTE | 2018-11-22 21:48 | RAD ---
RETROGRADE PYELOGRAM: 11/22/18 Six images from a retrograde study are presented. INDICATIONS: Intraoperative imaging during cystoscopy procedure. FINDINGS/IMPRESSION: These images show opacification of both renal collecting structures. No persistent filling defect. POS: RENETTA
[2018-11-22] MEDS ORDERED: Promethazine HCl 25 MG/ML VIAL ONE (21:51)
[2018-11-22] MEDS ORDERED: Morphine Sulfate 2 MG/ML SYRINGE SLOW IVP PRN (21:53)
[2018-11-22] MEDS ORDERED: PACU-Morphine 4MG/ML VIAL SLOW IVP PRN (21:53)
[2018-11-22] MEDS ORDERED: Promethazine HCl 25 MG/ML VIAL IM PRN (21:53)
[2018-11-22] MEDS ORDERED: Meperidine HCl/PF 25 MG/ML VIAL SLOW IVP PRN (21:53)
[2018-11-22] MEDS ORDERED: HYDROmorphone 2 MG/ML VIAL SLOW IVP PRN (21:53)
[2018-11-22] MEDS ORDERED: Promethazine HCl 25 MG/ML VIAL SLOW IVP PRN (21:53)
[2018-11-22] MEDS ORDERED: Ondansetron HCl/PF 4 MG/2 ML Vial IVP PRN (21:53)
[2018-11-22] MEDS: Acetaminophen 500 MG TAB PO PRN (23:16)
[2018-11-22] MEDS ORDERED: Morphine 4 MG/ML VIAL SLOW IVP PRN (23:24)
--- NOTE | 2018-11-23 00:12 | CON ---
DATE OF CONSULTATION: 11/22/2018 INITIAL REASON FOR CONSULTATION: 1. Gross hematuria. 2. End-stage renal disease, on hemodialysis. BRIEF HISTORY: Ms. Camille Amaro is a very pleasant 58-year-old female with an unfortunate history of end-stage renal disease secondary to hypertension. The patient was admitted on 11/19/2018 due to gross hematuria and apparent clot retention. I was consulted to see and evaluate the patient on the day of admission, which was 11/19/2018, and she is previously known to me for a previous hospitalization about 1 year ago with an almost identical history. At that time, the patient had urethral stricture disease, gross hematuria, and developed a bladder fracture. She has a past history of pyocystis with associated urinary retention. The patient on this visit underwent emergency room placement of a 3-way Bond catheter, had been on continuous bladder irrigation in hospital. Yesterday, we elected to perform a voiding trial, which the patient initially passed. However, she accrued a fair amount of blood in her bladder during the overnight period. Intermittent catheterization was performed with return of about 150 mL of grossly bloody urine with clots. Due to this, the patient was scheduled for surgery which is scheduled for today. PHYSICAL EXAMINATION: VITAL SIGNS: Temperature is 97.4, pulse 65, respirations 16, O2 saturation on room air is 96%, blood pressure is 138/81. HEENT: Head, ears, nose, and throat; extraocular movements are intact. Sclerae anicteric. Oropharynx is clear. NECK: Supple. LUNGS: Clear to auscultation bilaterally. CARDIAC: There is a regular rate and rhythm. ABDOMEN: Soft, obese, and nontender. EXTREMITIES: Left arm AV fistula which has been accessed today for hemodialysis. The patient has a femoral line as well. GENITOURINARY EXAMINATION: Deferred to operative suite. The patient is known to have gross hematuria with approximately 150 mL storage volume by bladder scan and catheter PVR. The patient had urine infection due to E. coli back on 09/13/2017 and had 2 previous urinary tract infections prior to that; on 08/16/2017 and 02/03/2016, all due to E. coli. She has not had a urine culture grow out on this visit, but a urine culture was sent from this morning. ASSESSMENT: Gross hematuria, exact origin uncertain. Patient did have identical presentation last year with a bladder fracture, pyocystis, and urethral stricturing. Discussed with the patient that management plans will be for cystoscopy with retrograde pyelography bilaterally and fulguration if we find that there are lesions that are actively bleeding. We will attempt to perform adequate clot evacuation and place a 3-way catheter at the end. The patient is not a big fan of having indwelling Bond catheter and we will try to accommodate her needs as best as possible. TIME SPENT: Over 35 minutes of consultation and assessment time was spent in evaluation of the patient today. Job ID: [id number]
--- NOTE | 2018-11-23 01:44 | OP ---
DATE OF PROCEDURE: 11/22/2018 PREOPERATIVE DIAGNOSES: 1. Gross hematuria. 2. End-stage renal disease, on hemodialysis. 3. History of pyocystis. POSTOPERATIVE DIAGNOSES: 1. Bladder lesion, right posterior. 2. Gross hematuria. 3. End-stage renal disease, on hemodialysis. 4. History of pyocystis. PROCEDURES PERFORMED: 1. Cystourethroscopy with fulguration greater than 5 cm, 17800. 2. Clot evacuation. 3. Bilateral retrograde pyelography, 41725. 4. Cystogram. 5. Colposcopy. SPECIMENS REMOVED: Bladder tumor for evaluation, permanent section. ESTIMATED BLOOD LOSS: 50 mL. COMPLICATIONS: None evident. DRAINS AND TUBES: A 22-Georgian 3-way Bond catheter on saline CBI. BRIEF HISTORY AND INDICATION FOR PROCEDURE: Ms. Camille Amaro is a very pleasant 58-year-old female with a history of unfortunate end-stage renal disease secondary to hypertension. The patient presented about a year ago with similar presentation today with a pyocystis type of event associated with gross hematuria. At that time, she did undergo evaluation and treatment of some fungating areas that were bleeding in her bladder. On this presentation, the patient presented with gross hematuria and clot retention after hemodialysis. She was admitted to the hospital, placed on continuous bladder irrigation. However, she continued to have gross hematuria, and was brought to the operative suite today for cystourethroscopy and fulguration. DESCRIPTION OF PROCEDURE: The patient was appropriately identified in the preoperative holding area. Informed written consent was obtained. The patient was transferred to the operative suite, placed in supine position on cysto-fluorographic table. General anesthesia was established using endotracheal means. The patient was repositioned in supine lithotomy position and prepped and draped in usual sterile fashion. The urethra which had the stricture was dilated to 34-Georgian. We gained access to the patient's bladder using a cystoscope and performed calderon endoscopic evaluation, finding a fungating right posterior lesion as well as large blood clots. I placed the resectoscope sheath and performed clot evacuation of all the clots in the patient's bladder. A large fungating lesion in the right posterior aspect of the bladder, greater than 5 cm remained. We elected to resect this to gain control of the bleeding elements. Resected the lesion in its entirety. Both left and right ureteric orifices were preserved. The lesion was completely posterior in location. Following complete resection and fulguration of the tumor base, we covered all the tumor specimen for permanent section. We then performed retrograde pyelography of both left and right ureters and found no upper tract lesions on either side. The patient's bladder then underwent cystogram evaluation to evaluate for possible leaks from the bladder. There was no evidence of leakage on the postdrainage film or during course of the filling films. The patient then underwent colposcopy to evaluate for possible extrinsic lesion bleeding into the patient's bladder and we found no lesions. The patient had undergone previous hysterectomy as we were not able to find the cervix until the colposcopy exam. The patient's bladder was in the full state at this point. We placed a 3-way Bond catheter with return of some bloody urine, performed irrigation of the patient's bladder with a 3-way Bond catheter in place and then placed saline CBI. A 16-A belladonna and opioid suppository was applied per rectum and closed the procedure. The patient was ultimately returned to supine position, awakened and extubated in the operative suite, transferred to her hospital bed and was subsequently transported the postoperative care unit in good condition. COMPLICATIONS: None. Job ID: [id number]
[2018-11-23] MEDS: Morphine 4 MG/ML VIAL SLOW IVP PRN ×2 (02:43→13:23)
[2018-11-23] MEDS ORDERED: B & O PR SCH (05:15)
[2018-11-23] MEDS ORDERED: Labetalol HCl 100 MG/20 ML VIAL SLOW IVP PRN (07:14)
[2018-11-23] MEDS: Sevelamer Carbonate 800 MG TAB PO SCH ×3 (09:53→17:58)
[2018-11-23] MEDS: Carvedilol 25 MG TAB PO SCH ×2 (09:53→20:06)
[2018-11-23] MEDS: Atorvastatin Calcium 10 MG TAB PO SCH (09:53)
[2018-11-23] MEDS: Oxybutynin 5 MG TAB PO SCH (09:54)
[2018-11-23] MEDS: Polyethylene Glycol 3350 17 GM Packet PO SCH (09:54)
[2018-11-23] MEDS: Cinacalcet HCl 30 MG TAB PO SCH (09:54)
[2018-11-23] MEDS: Escitalopram Oxalate 10 mg Tablet PO SCH (09:54)
[2018-11-23] MEDS: Estrogens, Conjugated 30 GM TUBE VAG SCH (09:57)
[2018-11-23] MEDS: Acetaminophen 500 MG TAB PO PRN (12:20)
[2018-11-23] MEDS ORDERED: B & O 30 MG SUPP PR PRN (14:26)
[2018-11-23] MEDS: B & O PR PRN (16:37)
--- NOTE | 2018-11-23 16:50 | PRG ---
DATE OF SERVICE: 11/23/2018 INITIAL REASON FOR CONSULTATION: 1. Gross hematuria. 2. End-stage renal disease, currently on hemodialysis. BRIEF HISTORY: Ms. Camille Amaro is a 58-year-old female with an unfortunate history of end-stage renal disease secondary to hypertension. She was admitted on 11/19/2018 due to gross hematuria and apparent clot retention, underwent a cystourethroscopy with transurethral resection of an inflammatory bladder lesion on 11/22/2018. Overnight, the patient has had continued gross hematuria and remains on continuous bladder irrigation on sterile saline. Recalling the patient's history, she previously had pyocystis as well as some associated urinary tract infections. She makes relatively low volume of urine and voids very infrequently. Due to this patient's bladder often times becomes colonized with organisms, develops a urinary tract infection. PHYSICAL EXAMINATION: VITAL SIGNS: Temperature is 99.1, pulse 92, respirations 18, room air O2 saturation is 95%, and current blood pressure 198/90. HEAD, EYES, EARS, NOSE, AND THROAT: Extraocular movements are intact. Sclerae are anicteric. Oropharynx is clear. NECK: Supple. LUNGS: Clear to auscultation bilaterally. ABDOMEN: Soft, obese, and nontender. EXTREMITIES: The patient has a left arm fistula, which was last accessed on Sunday morning. A palpable thrill and bruit are present. PELVIC: Indwelling 3-way Bond catheter remains in place. This appeared to be clotted on my initial evaluation of it and I did perform irrigation, returning some black clot material. Gross hematuria ensued with irrigation. The patient was left on continuing irrigation. LABORATORY DATA: There are no new laboratories since 11/21/2018. A straight cath urine culture grew no organisms at 24 hours. ASSESSMENT AND PLAN: 1. Gross hematuria, apparently arising from irritated inflammatory area on the patient's bladder. She has been on aspirin. 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 The patient has indwelling 3-way Bond catheter, which is on sterile saline CBI and we intend to switch that to sterile water CBI today to allow better disruption of clot. ID concerns no positive urine culture results at this point. 2. Bladder spasms. We will increase the patient's belladonna and opioid suppository rate to q.6 h. p.r.n. pain. TIME SPENT: Over 35 minutes of consultation and assessment time was spent in evaluation of this patient today. Job ID: [id number]
--- NOTE | 2018-11-23 17:53 | PDOC.PN ---
- Subjective Encounter Start Date: 11/23/18 Encounter Start Time: 08:00 Patient seen and examined for gross hematuria. Suprapubic discomfort. No fever. No new complaints. No overnight events - Objective MAR Reviewed: Yes Vital Signs & Weight: Vital Signs (12 hours) Temp Pulse Resp BP Pulse Ox 11/23/18 16:20 98.8 F 85 18 132/73 95 11/23/18 15:29 83 133/71 11/23/18 11:55 99.1 F 92 18 198/90 H 95 11/23/18 08:00 99.0 F 78 18 152/77 H 93 L Weight Admit Weight 203 lb 6.023 oz Weight 203 lb 6.023 oz I&O: 11/22/18 11/23/18 11/24/18 06:59 06:59 06:59 Intake Total 240 100 Output Total 650 5900 Balance -410 -5935 Result Diagrams: 11/21/18 10:34 11/21/18 10:34 Phys Exam - Physical Examination Constitutional: NAD Respiratory: no wheezing, no rhonchi Cardiovascular: RRR, no rub Gastrointestinal: soft, positive bowel sounds mild suprapubic discomfort. no rebound/guarding Dx/Plan - Plan DVT proph w/SCDs IMPRESSION: Gross hematuria s/p cystoscopy chronic pyocystitis ESRD on dialysis HTN h/o CVA with residual Rt hemiparesis HLD Anemia Bladder spasm PLAN: On CBI Cultures negative Dialysis per Nephrology ASA on hold Cont Coreg/Imdur Review of Systems - Review of Systems Respiratory: negative: Cough, Dry, Shortness of Breath, Hemoptysis, SOB with Excertion, Pleuritic Pain, Sputum, Wheezing Cardiovascular: negative: chest pain, palpitations, orthopnea, paroxysmal nocturnal dyspnea, edema, light headedness, other - Medications/Allergies Allergies/Adverse Reactions: Allergies Allergy/AdvReac Type Severity Reaction Status Date / Time No Known Drug Allergies Allergy Verified 09/13/17 01:20 Medications: Current Medications Acetaminophen (Tylenol) 500 mg PO Q6H PRN PRN Reason: Headache/Fever or Pain Last Admin: 11/23/18 12:20 Dose: 500 mg Atorvastatin Calcium (Lipitor) 10 mg PO DAILY [facility] Last Admin: 11/23/18 09:53 Dose: 10 mg Belladonna Alkaloids/Opium (B & O) 60 mg LA Q6H PRN PRN Reason: Bladder Spasms Last Admin: 11/23/18 16:37 Dose: 60 mg Carvedilol (Coreg) 25 mg PO BID [facility] Last Admin: 11/23/18 09:53 Dose: 25 mg Cinacalcet (Sensipar) 60 mg PO DAILY [facility] Last Admin: 11/23/18 09:54 Dose: 60 mg Ergocalciferol (Drisdol) 1.25 mg PO Q7D [facility] Last Admin: 11/20/18 08:09 Dose: 1.25 mg Escitalopram Oxalate (Lexapro) 10 mg PO DAILY [facility] Last Admin: 11/23/18 09:54 Dose: 10 mg Estrogens Conjugated (Premarin Cream) 1 gm VAG DAILY [facility] Last Admin: 11/23/18 09:57 Dose: 1 gm Isosorbide Mononitrate (Imdur) 60 mg PO DAILY [facility] Last Admin: 11/23/18 09:54 Dose: 60 mg Labetalol HCl (Normodyne) 10 mg SLOW IVP Q4H PRN PRN Reason: Systolic BP > 180 Morphine Sulfate (Morphine) 4 mg SLOW IVP Q12H PRN PRN Reason: Pain Last Admin: 11/23/18 13:23 Dose: 4 mg Ondansetron HCl (Zofran Odt) 4 mg PO Q4H PRN PRN Reason: Nausea/Vomiting Last Admin: 11/22/18 11:15 Dose: 4 mg Oxybutynin Chloride (Ditropan) 5 mg PO DAILY [facility] Last Admin: 11/23/18 09:54 Dose: 5 mg Polyethylene Glycol (Miralax) 17 gm PO DAILY [facility] Last Admin: 11/23/18 09:54 Dose: Not Given Sevelamer Carbonate (Renvela) 1,600 mg PO TID[facility] Last Admin: 11/23/18 13:22 Dose: 1,600 mg Sevelamer Carbonate (Renvela) 800 mg PO PRN PRN PRN Reason: WITH SNACKS Sodium Chloride (Flush - Normal Saline) 10 ml IVF Q12HR [facility] Last Admin: 11/23/18 09:54 Dose: 10 ml Sodium Chloride (Flush - Normal Saline) 10 ml IVF PRN PRN PRN Reason: Saline Flush
[2018-11-24 04:40] LABS: #Basophils 0.1 thou/uL (0.0-0.2); #Eosinphils 0.1 thou/uL (0.0-0.7); #Lymphocytes 2.7 thou/uL (1.20-3.40); #Monocytes 1.2 thou/uL (0.11-0.59); #Neutrophils 12.3 thou/uL (1.40-6.50); %Basophils 0.7 % (0.0-1.0); %Eosinophils 0.7 % (0.0-10.0); %Lymphocytes 16.3 % (21.0-51.0); %Monocytes 7.2 % (0.0-10.0); Hemoglobin 8.8 g/dL (12.0-16.0); Mean Corpuscular HGB CONC 31.3 g/dL (32.0-36.0); Mean Corpuscular Hemoglobin 25.1 pg (27.0-31.0); Mean Corpuscular Volume 80.3 fL (78.0-98.0); Mean Platelet Volume 7.8 fL (7.4-10.4); Platelet Count 351 thou/uL (130-400); RBC Distribution Width 12.4 % (11.5-14.5); White Blood Cell (WBC) Count 16.4 thou/uL (4.8-10.8)
[2018-11-24 05:00] LABS: Anion Gap 20 mmol/L (10-20); BUN (Urea Nitrogen) 55 mg/dL (9.8-20.1); Calc. Creatinine Clearance 11 mL/min (70-130); Calcium 9.7 mg/dL (7.8-10.44); Carbon Dioxide 27 mmol/L (22-29); Chloride 95 mmol/L (98-107); Estimated GFR-MDRD 6; Glucose 111 mg/dL (70-105); Potassium 5.7 mmol/L (3.5-5.1); Sodium 136 mmol/L (136-145)
[2018-11-24] MEDS: Polyethylene Glycol 3350 17 GM Packet PO SCH (08:26)
[2018-11-24] MEDS: Cinacalcet HCl 30 MG TAB PO SCH (08:27)
[2018-11-24] MEDS: Estrogens, Conjugated 30 GM TUBE VAG SCH (08:27)
[2018-11-24] MEDS: Escitalopram Oxalate 10 mg Tablet PO SCH (08:30)
[2018-11-24] MEDS: Atorvastatin Calcium 10 MG TAB PO SCH (08:31)
[2018-11-24] MEDS: Carvedilol 25 MG TAB PO SCH ×2 (08:32→20:38)
[2018-11-24] MEDS: Oxybutynin 5 MG TAB PO SCH (08:32)
[2018-11-24] MEDS: Sevelamer Carbonate 800 MG TAB PO SCH ×3 (08:38→16:46)
--- NOTE | 2018-11-24 17:58 | PRG ---
DATE OF SERVICE: 11/24/2018 SUBJECTIVE: The patient noted with the following vital signs. OBJECTIVE: VITAL SIGNS: Afebrile, temperature 98.3, pulse 82, respiratory rate of 16, O2 saturation of 97%, blood pressure 145/65. HEENT: Unremarkable. Moist oral mucosa. NECK: Supple. No conjunctival injection or icterus. CARDIOVASCULAR: First and second heart sounds are heard. RESPIRATORY: Clear to auscultation. DIGESTIVE: Revealed a benign abdomen with positive bowel sounds. EXTREMITIES: No peripheral edema. SKIN: No new gross rash. LYMPHATICS: No peripheral lymphadenopathy. IMPRESSION: 1. End-stage renal disease. 2. Gross hematuria. Urology following up. PLAN: 1. The patient to be dialyzed tomorrow in accordance with the schedule of Sunday, Sunday, and Sunday. 2. Further management to be dependent on the clinical course. Job ID: [id number]
--- NOTE | 2018-11-24 18:01 | PRG ---
DATE OF SERVICE: 11/23/2018 SUBJECTIVE: The patient was seen and examined, noted with the following vital signs. OBJECTIVE: VITAL SIGNS: Afebrile, temperature 98.8, pulse 85, respiratory rate of 18, O2 saturation of 95% with a blood pressure of 132/73. HEENT: Unremarkable. CARDIOVASCULAR: First and second heart sounds were heard. RESPIRATORY: Clear to auscultation. DIGESTIVE: Revealed a benign abdomen. Positive bowel sounds. EXTREMITIES: No peripheral edema. SKIN: No new gross rash. LYMPHATICS: No peripheral lymphadenopathy. UROGENITAL: Did reveal a 3-way Bond catheter with a pinkish urine in the draining bag. IMPRESSION: 1. End-stage renal disease, on hemodialysis. 2. Gross hematuria. 3. Bladder tumor, status post cystoscopy with bladder. PLAN: 1. We will continue hemodialysis per schedule without any heparin. 2. Urology following. 3. Further management will be dependent on the clinical course as well as further recommendations from Urology service. Job ID: [id number]
--- NOTE | 2018-11-24 19:42 | PDOC.PN ---
- Subjective Encounter Start Date: 11/24/18 Encounter Start Time: 08:00 Patient seen and examined for gross hematuria. On CBI - gross hematuria slowly clearing. Pain controlled. No fever/chills. No new complaints. No overnight events - Objective MAR Reviewed: Yes Vital Signs & Weight: Vital Signs (12 hours) Temp Pulse Pulse Resp BP BP Pulse Ox 11/24/18 19:13 97.7 F 78 16 102/57 L 98 11/24/18 16:23 80 111/58 L 11/24/18 08:10 97.6 F 65 16 130/60 94 L 11/24/18 08:00 94 L Weight Admit Weight 203 lb 6.023 oz Weight 203 lb 6.023 oz I&O: 11/23/18 11/24/18 11/25/18 06:59 06:59 06:59 Intake Total 100 1400 240 Output Total 5900 1250 425 Balance -5800 150 -185 Result Diagrams: 11/24/18 04:08 11/24/18 03:30 Phys Exam - Physical Examination Constitutional: NAD Respiratory: no wheezing, no rhonchi Cardiovascular: RRR, no rub Gastrointestinal: soft, non-tender, positive bowel sounds Musculoskeletal: no edema Dx/Plan - Plan DVT proph w/SCDs IMPRESSION: Gross hematuria s/p cystoscopy Acute blood loss Anemia chronic pyocystitis ESRD on dialysis with Hyperkalemia HTN h/o CVA with residual Rt hemiparesis HLD Anemia Bladder spasm PLAN: Cont CBI per Urology Pain control Dialysis per Nephrology ASA on hold Cont Coreg/Imdur and other meds as below Low Potassium diet AM labs Review of Systems - Review of Systems Respiratory: negative: Cough, Dry, Shortness of Breath, Hemoptysis, SOB with Excertion, Pleuritic Pain, Sputum, Wheezing Cardiovascular: negative: chest pain, palpitations, orthopnea, paroxysmal nocturnal dyspnea, edema, light headedness, other - Medications/Allergies Allergies/Adverse Reactions: Allergies Allergy/AdvReac Type Severity Reaction Status Date / Time No Known Drug Allergies Allergy Verified 09/13/17 01:20 Medications: Current Medications Acetaminophen (Tylenol) 500 mg PO Q6H PRN PRN Reason: Headache/Fever or Pain Last Admin: 11/23/18 12:20 Dose: 500 mg Atorvastatin Calcium (Lipitor) 10 mg PO DAILY [facility] Last Admin: 11/24/18 08:31 Dose: 10 mg Belladonna Alkaloids/Opium (B & O) 60 mg IN Q6H PRN PRN Reason: Bladder Spasms Last Admin: 11/23/18 16:37 Dose: 60 mg Carvedilol (Coreg) 25 mg PO BID [facility] Last Admin: 11/24/18 08:32 Dose: 25 mg Cinacalcet (Sensipar) 60 mg PO DAILY [facility] Last Admin: 11/24/18 08:27 Dose: 60 mg Ergocalciferol (Drisdol) 1.25 mg PO Q7D [facility] Last Admin: 11/20/18 08:09 Dose: 1.25 mg Escitalopram Oxalate (Lexapro) 10 mg PO DAILY [facility] Last Admin: 11/24/18 08:30 Dose: 10 mg Estrogens Conjugated (Premarin Cream) 1 gm VAG DAILY [facility] Last Admin: 11/24/18 08:27 Dose: 1 gm Isosorbide Mononitrate (Imdur) 60 mg PO DAILY [facility] Last Admin: 11/24/18 08:28 Dose: 60 mg Labetalol HCl (Normodyne) 10 mg SLOW IVP Q4H PRN PRN Reason: Systolic BP > 180 Morphine Sulfate (Morphine) 4 mg SLOW IVP Q12H PRN PRN Reason: Pain Last Admin: 11/23/18 13:23 Dose: 4 mg Ondansetron HCl (Zofran Odt) 4 mg PO Q4H PRN PRN Reason: Nausea/Vomiting Last Admin: 11/22/18 11:15 Dose: 4 mg Oxybutynin Chloride (Ditropan) 5 mg PO DAILY [facility] Last Admin: 11/24/18 08:32 Dose: 5 mg Polyethylene Glycol (Miralax) 17 gm PO DAILY [facility] Last Admin: 11/24/18 08:26 Dose: 17 gm Sevelamer Carbonate (Renvela) 1,600 mg PO TID[facility] Last Admin: 11/24/18 16:46 Dose: 1,600 mg Sevelamer Carbonate (Renvela) 800 mg PO PRN PRN PRN Reason: WITH SNACKS Sodium Chloride (Flush - Normal Saline) 10 ml IVF Q12HR [facility] Last Admin: 11/24/18 08:33 Dose: 10 ml Sodium Chloride (Flush - Normal Saline) 10 ml IVF PRN PRN PRN Reason: Saline Flush
--- NOTE | 2018-11-24 19:44 | PRG ---
DATE OF SERVICE: 11/24/2018 REASON FOR CONSULTATION: 1. Gross hematuria. 2. Pyocystis. 3. End-stage renal disease, on hemodialysis. BRIEF HISTORY: Ms. Camille Amaro is a very pleasant 58-year-old female, known to me from a previous hospital admission for gross hematuria, pyocystis, and urethral stricture disease. The patient again was admitted recently on 11/19/2018, for similar indications. An indwelling Bond catheter was placed at her hospital admission, 3-way type, and the patient was placed on continuous bladder irrigation. The patient continued on continuous bladder irrigation and was ultimately taken to the operating room for clot evacuation and transurethral resection of an apparent inflammatory lesion in her bladder. She underwent complete resection of a 5-cm or a larger tumor and was subsequently placed again on continuous bladder irrigation. The patient continued to have gross hematuria partially due to her auto-anticoagulated state, regular hemodialysis, and aspirin use. The patient was continued on continuous bladder irrigation overnight last night and continues to have some gross hematuria, although this is improving. The patient's continuous bladder irrigation has not been continuous and due to temporary loss of irrigation, we can see that she still has a fair amount of gross hematuria. If there is no irrigation, this likely would again result in large clot formation in her bladder since she makes such a small amount of urine. PHYSICAL EXAMINATION: VITAL SIGNS: Temperature is 97.6, pulse 65, respirations 16, O2 saturation is 94% on room air. She has a current blood pressure of 130/60. HEAD, EYES, EARS, NOSE, AND THROAT: Extraocular movements are intact. Sclerae are anicteric. Oropharynx is clear. NECK: Supple. LUNGS: Clear to auscultation bilaterally. CARDIAC: Regular rate and rhythm without murmur, rub, or gallop. ABDOMEN: Soft, obese, and nontender. GENITOURINARY: An indwelling 3-way Bond catheter is in place. The patient's urine grossly without irrigation is just of port wine. With irrigation, it clears nicely to a peach color indicating minimal new blood addition in her bladder. She did have extensive fulguration of the lesion area, and we are expecting her to have general clearance within a day or so. Her existing aspirin effects will probably result in some continuation for a few days. The overall appearance is about what we would expect at this time point. LABORATORY STUDIES: The patient had a white count of 16,400 today, hematocrit of 28.1 with hemoglobin of 8.8 indicating relative concentration from the 11/21/2018, labs. Neutrophil count is 75% with an ANC of 12.3 today. Serum chemistry showed the patient's serum potassium at 5.7, chloride at 95, blood urea nitrogen at 55, and creatinine at 8.0. This would be the regular dialysis day if this was during a weekday. The patient will have dialysis tomorrow according to schedule as directed by Dr. Foy. ASSESSMENT: 1. Gross hematuria, multifactorial cause. The patient had an apparent inflammatory type lesion, which has been seen previously in this patient. She underwent resection of that and is now in a recovery phase from that. She still has some hematuria. The patient makes essentially no urine to measure by daily basis, and due to this, continuous bladder irrigation is required to clear clot. Anticoagulant should be strictly suspended particularly in this patient's case, and at dialysis, minimization use of heparin is indicated. 2. Bladder lesion. This appears inflammatory and will likely end up with a report similar to the last year. The patient's resection performed last year showed chronic inflammation and no evidence of cancer. 3. End-stage renal disease. The patient is scheduled for hemodialysis tomorrow according to the Sunday, Sunday, Sunday schedule as directed by Dr. Foy. Over 35 minutes of consultation and assessment time was spent with the patient and in coordination of care as well as management of her multifactorial genitourinary issues. Job ID: [id number]
[2018-11-24] MEDS: Senokot S 8.6-50 MG TAB PO SCH (20:36)
[2018-11-24] MEDS ORDERED: Polyethylene Glycol 3350 17 GM Packet PO SCH (21:00)
[2018-11-25 05:31] LABS: #Basophils 0.1 thou/uL (0.0-0.2); #Eosinphils 0.7 thou/uL (0.0-0.7); #Lymphocytes 3.3 thou/uL (1.20-3.40); #Monocytes 1.3 thou/uL (0.11-0.59); #Neutrophils 8.9 thou/uL (1.40-6.50); %Basophils 0.6 % (0.0-1.0); %Eosinophils 5.2 % (0.0-10.0); %Neutrophils 62.2 % (42.0-75.0); Hemoglobin 7.9 g/dL (12.0-16.0); Mean Corpuscular HGB CONC 30.2 g/dL (32.0-36.0); Mean Corpuscular Hemoglobin 24.1 pg (27.0-31.0); Mean Corpuscular Volume 79.8 fL (78.0-98.0); Mean Platelet Volume 7.3 fL (7.4-10.4); Platelet Count 311 thou/uL (130-400); RBC Distribution Width 12.1 % (11.5-14.5); White Blood Cell (WBC) Count 14.2 thou/uL (4.8-10.8)
[2018-11-25 05:46] LABS: Anion Gap 22 mmol/L (10-20); BUN (Urea Nitrogen) 80 mg/dL (9.8-20.1); Calc. Creatinine Clearance 9 mL/min (70-130); Calcium 8.9 mg/dL (7.8-10.44); Carbon Dioxide 28 mmol/L (22-29); Chloride 95 mmol/L (98-107); Estimated GFR-MDRD 5; Glucose 99 mg/dL (70-105); Potassium 5.5 mmol/L (3.5-5.1); Sodium 139 mmol/L (136-145)
[2018-11-25] MEDS: Sevelamer Carbonate 800 MG TAB PO SCH ×3 (09:36→16:24)
[2018-11-25] MEDS: Polyethylene Glycol 3350 17 GM Packet PO SCH (12:07)
[2018-11-25] MEDS: Carvedilol 25 MG TAB PO SCH ×2 (12:09→21:21)
[2018-11-25] MEDS: Atorvastatin Calcium 10 MG TAB PO SCH (12:09)
[2018-11-25] MEDS: Cinacalcet HCl 30 MG TAB PO SCH (12:10)
[2018-11-25] MEDS: Senokot S 8.6-50 MG TAB PO SCH ×2 (12:11→21:21)
[2018-11-25] MEDS: Oxybutynin 5 MG TAB PO SCH (12:14)
[2018-11-25] MEDS: Escitalopram Oxalate 10 mg Tablet PO SCH (12:14)
[2018-11-25] MEDS: Estrogens, Conjugated 30 GM TUBE VAG SCH (12:15)
[2018-11-25] MEDS: B & O PR PRN (16:21)
[2018-11-25] MEDS ORDERED: Fleet Enema 133 ML BOT FS SCH (16:30)
[2018-11-25] MEDS: Acetaminophen 500 MG TAB PO PRN (21:21)
--- NOTE | 2018-11-25 22:08 | PRG ---
DATE OF SERVICE: OBJECTIVE: VITAL SIGNS: Noted with the following vital signs, afebrile temperature 97.8, pulse 79, respiratory rate of 18, O2 saturations are 99%, and blood pressure 114/60. HEENT: Unremarkable. CARDIOVASCULAR SYSTEM: First and second heart sounds were heard. RESPIRATORY: Clear to auscultation. DIGESTIVE: Revealed a benign abdomen with positive bowel sounds. EXTREMITIES: No peripheral edema. SKIN: No new gross rash. LYMPHATICS: No peripheral lymphadenopathy. IMPRESSION: 1. End-stage renal disease, on hemodialysis Sunday, Sunday, and Sunday. 2. Gross hematuria, status post cystoscopy. 3. Anemia. PLAN: The patient to be dialyzed in accordance with dialysis regimen. Further management will be dependent on the clinical course. Job ID: [id number]
--- NOTE | 2018-11-26 07:49 | PRG ---
DATE OF SERVICE: 11/25/2018 INITIAL REASON FOR CONSULTATION: 1. Gross hematuria. 2. Urinary retention. 3. Renal insufficiency secondary to hypertension, currently on hemodialysis. BRIEF HISTORY: Ms. Camille Amaro is a very pleasant 58-year-old female with end-stage renal disease secondary to hypertension. I am acquainted with Ms. Amaro from a previous hospitalization about 1 year ago where she presented in identical fashion with gross hematuria and clot retention. The patient has chronic pyocystis due to low urinary output and infrequent voiding intervals and presented on this admission with gross bleeding from an inflammatory bladder mass. She has undergone transurethral resection of that and her pathology specimen remains pending. We did take her to the operating room on 11/22/2018 for that evaluation. The patient was on anticoagulation therapy with aspirin daily, which we have discontinued and this seems to be resulting in some improvement in her gross hematuria. PHYSICAL EXAMINATION: VITAL SIGNS: Temperature is 97.8, pulse 79, respirations 18, O2 saturation on room air is 99%, and blood pressure is 114/60. GENERAL: This is awake, alert, female in no apparent distress. She reports she has had hemodialysis today. HEAD, EYES, EARS, NOSE, AND THROAT: Extraocular movements are intact. Sclerae anicteric. Oropharynx is clear. NECK: Supple. LUNGS: Clear to auscultation bilaterally. CARDIAC: Regular rate and rhythm without murmur, rub, or gallop. ABDOMEN: Soft, obese, and nontender. EXTREMITIES: The patient has a patent left upper extremity fistula with a palpable thrill and a bruit on auscultation. : Finds an indwelling 3-way Bond catheter in place. The patient's urine output shows a light straw color to it on a low rate CBI. ASSESSMENT AND PLAN: Gross hematuria, now nearly in resolution since stopping the patient's aspirin and after transurethral resection of bladder mass with fulguration. She is currently on sterile water CBI titrated at relatively low rate. I think we could discontinue her CBI in the morning and see how she does during the day and let her home probably in the afternoon hours tomorrow if she is not having new gross hematuria after Bond catheter discontinuation. Over 35 minutes of consultation, assessment, coordination of care time was spent on this patient today. Job ID: [id number]
[2018-11-26] MEDS: Sevelamer Carbonate 800 MG TAB PO SCH ×3 (09:59→19:38)
[2018-11-26] MEDS: Carvedilol 25 MG TAB PO SCH ×2 (10:00→20:40)
[2018-11-26] MEDS: Atorvastatin Calcium 10 MG TAB PO SCH (10:00)
[2018-11-26] MEDS: Cinacalcet HCl 30 MG TAB PO SCH (10:01)
[2018-11-26] MEDS: Oxybutynin 5 MG TAB PO SCH (10:02)
[2018-11-26] MEDS: Escitalopram Oxalate 10 mg Tablet PO SCH (10:02)
[2018-11-26] MEDS: Senokot S 8.6-50 MG TAB PO SCH ×2 (10:02→19:46)
[2018-11-26] MEDS: Estrogens, Conjugated 30 GM TUBE VAG SCH (10:15)
[2018-11-26] MEDS: Polyethylene Glycol 3350 17 GM Packet PO SCH (10:18)
--- NOTE | 2018-11-26 11:01 | PRG ---
DATE OF SERVICE: 11/26/2018 OBJECTIVE: VITAL SIGNS: The patient is noted with the following vital signs. Afebrile, temperature 97.6, pulse 79, respiratory rate of 16, O2 saturations 97%, blood pressure 104/63. HEENT: Unremarkable. CARDIOVASCULAR SYSTEM: First and second heart sounds were heard. RESPIRATORY SYSTEM: Clear to auscultation. DIGESTIVE SYSTEM: Revealed a benign abdomen with positive bowel sounds. EXTREMITIES: No peripheral edema. SKIN: No new gross rash. IMPRESSION: 1. End-stage renal disease, on hemodialysis. 2. Hematuria, on treatment. PLAN: 1. Continue current dialysis regimen. 2. Further management will be dependent on the clinical course. Job ID: [id number]
--- NOTE | 2018-11-26 14:47 | PRG ---
DATE OF SERVICE: 11/26/2018 INITIAL REASON FOR CONSULTATION: 1. Gross hematuria. 2. Urinary retention. 3. Renal insufficiency secondary to hypertension, currently on hemodialysis. BRIEF HISTORY: Ms. Camille Amaro is a very pleasant 58-year-old female with end-stage renal disease secondary to hypertension, currently on hemodialysis. I am acquainted with Ms. Amaro from a previous hospitalization about 1 year ago when she presented in identical fashion with gross hematuria and clot retention. The patient has had chronic pyocystis due to low urinary output and infrequent voiding intervals. Based on this admission with gross hematuria, she underwent cystoscopic evaluation. We did find an inflammatory bladder mass, not unlike what was seen a year ago. The patient had transurethral resection of that bladder mass and her pathology specimens remain pending as of this morning. The patient was on anticoagulation therapy with aspirin daily, and since we have suspended that, had significant lessening of the hematuria. She was on continuous bladder irrigation for over a week and for several days after her TUR of the fungating bladder lesion. The patient today underwent a voiding trial due to general lack of hematuria on CBI. PHYSICAL EXAMINATION: VITAL SIGNS: The patient remains afebrile, temperature 97.6, pulse 79, respirations 16, O2 saturation on room air is 97% with blood pressure of 104/63. HEAD, EYES, EARS, NOSE, AND THROAT: Extraocular movements are intact. Sclerae anicteric. Oropharynx is clear. NECK: Supple. LUNGS: Clear to auscultation bilaterally. CARDIAC: Regular rate and rhythm without murmur, rub, or gallop. EXTREMITIES: There is a left-sided upper extremity fistula, this is patent. A palpable thrill and bruit are heard. ABDOMEN: Soft and nontender. : Bond catheter was removed this morning. Did not have gross hematuria this morning. LABORATORY STUDIES: The patient's urine culture from 11/22/2018 had no growth at 48 hours. The patient's white count yesterday was 14,200 with a hemoglobin of 7.9, and hematocrit of 26.3. Serum chemistries prior to dialysis showed a creatinine of 10.26, blood urea nitrogen of 80, and potassium of 5.5. ASSESSMENT: 1. End-stage renal disease. The patient will continue to follow with Dr. Foy. She is due for dialysis again tomorrow on the [facility] schedule. 2. Gross hematuria. This appears to originate from a fungating bladder lesion, which underwent resection. Pathology remains pending on that. 3. Urinary retention. The patient has poor bladder emptying from a relatively thick wall bladder from chronic inflammation. We will have a new urine culture obtained since she had chronic indwelling Bond catheter for a number of days, had a catheter removal earlier today. We will go ahead and obtain a urine culture for later use in addition a urinalysis. Hematuria appears to be under reasonable control at this point. 4. Hematuria. I would recommend this patient not be discharged on aspirin as this appears to be a contributor to the patient's recurrent episodes of hematuria. Minimization of heparin at dialysis should also be utilized. Followup, the patient did undergo a thorough evaluation for hematuria at this admission, does not appear to be bleeding from upper tract rather a bladder lesion, which an inflammatory type characteristics to it consistent with the patient's longstanding history of pyocystis. Job ID: [id number]
[2018-11-27] MEDS: Oxybutynin 5 MG TAB PO SCH (13:10)
[2018-11-27] MEDS: Sevelamer Carbonate 800 MG TAB PO SCH ×3 (13:10→17:32)
[2018-11-27] MEDS: Cinacalcet HCl 30 MG TAB PO SCH (13:10)
[2018-11-27] MEDS: Polyethylene Glycol 3350 17 GM Packet PO SCH (13:11)
[2018-11-27] MEDS: Atorvastatin Calcium 10 MG TAB PO SCH (13:11)
[2018-11-27] MEDS: Escitalopram Oxalate 10 mg Tablet PO SCH (13:11)
[2018-11-27] MEDS: Senokot S 8.6-50 MG TAB PO SCH (13:11)
[2018-11-27] MEDS: Carvedilol 25 MG TAB PO SCH (13:11)
[2018-11-27 13:14] LABS: #Basophils 0.1 thou/uL (0.0-0.2); #Eosinphils 0.5 thou/uL (0.0-0.7); #Lymphocytes 2.2 thou/uL (1.20-3.40); #Monocytes 0.7 thou/uL (0.11-0.59); #Neutrophils 4.9 thou/uL (1.40-6.50); %Basophils 0.7 % (0.0-1.0); %Eosinophils 5.7 % (0.0-10.0); %Lymphocytes 26.9 % (21.0-51.0); %Monocytes 7.9 % (0.0-10.0); %Neutrophils 58.8 % (42.0-75.0); Hemoglobin 7.3 g/dL (12.0-16.0); Mean Corpuscular HGB CONC 31.1 g/dL (32.0-36.0); Mean Corpuscular Hemoglobin 24.8 pg (27.0-31.0); Mean Corpuscular Volume 79.9 fL (78.0-98.0); Platelet Count 305 thou/uL (130-400); RBC Distribution Width 11.8 % (11.5-14.5); Red Blood Cell (RBC) Count 2.96 mill/uL (4.20-5.40); White Blood Cell (WBC) Count 8.3 thou/uL (4.8-10.8)
[2018-11-27] MEDS: Estrogens, Conjugated 30 GM TUBE VAG SCH (13:17)
[2018-11-27] MEDS: Ergocalciferol 1.25 MG(50,000 UNITS) CAP PO SCH (16:30)
--- NOTE | 2018-11-28 08:26 | PRG ---
DATE OF SERVICE: 11/27/2018 OBJECTIVE: VITAL SIGNS: The patient noted with the following vital signs afebrile. Temperature 99, pulse 77, respiratory rate of 16, O2 saturations of 95% with blood pressure 103/57. HEENT: Unremarkable. CARDIOVASCULAR SYSTEM: First and second heart sounds were heard. RESPIRATORY SYSTEM: Clear to auscultation. DIGESTIVE SYSTEM: Revealed a benign abdomen with positive bowel sounds. EXTREMITIES: No peripheral edema. SKIN: No new gross rash. LYMPHATICS: No peripheral lymphadenopathy. LABORATORY INVESTIGATION: Showed a hemoglobin of 7.3. IMPRESSION: 1. End-stage renal disease. 2. Anemia. 3. Hematuria. 4. Urinary tract infection. PLAN: 1. The blood count unfortunately was done after hemodialysis show significant anemia, since this patient is still having ongoing and severe, we will recommend transfusing this patient with at least 1 unit of blood prior to discharge. 2. Further management will be dependent on the clinical course. Job ID: [id number]
[2018-11-28 08:39] VITALS: BP 130/80; TEMP 97.5
[2018-11-28] MEDS: Senokot S 8.6-50 MG TAB PO SCH ×2 (09:56→10:04)
[2018-11-28] MEDS: Carvedilol 25 MG TAB PO SCH ×2 (09:56→10:03)
[2018-11-28] MEDS: Cinacalcet HCl 30 MG TAB PO SCH (10:02)
[2018-11-28] MEDS: Atorvastatin Calcium 10 MG TAB PO SCH (10:03)
[2018-11-28] MEDS: Escitalopram Oxalate 10 mg Tablet PO SCH (10:03)
[2018-11-28] MEDS: Sevelamer Carbonate 800 MG TAB PO SCH ×2 (10:03→11:36)
[2018-11-28] MEDS: Oxybutynin 5 MG TAB PO SCH (10:04)
[2018-11-28] MEDS: Polyethylene Glycol 3350 17 GM Packet PO SCH (10:04)
[2018-11-28] MEDS: Estrogens, Conjugated 30 GM TUBE VAG SCH (10:05)
[2018-11-28 14:29] LABS: #Basophils 0.1 thou/uL (0.0-0.2); #Eosinphils 0.5 thou/uL (0.0-0.7); #Lymphocytes 2.7 thou/uL (1.20-3.40); #Neutrophils 5.6 thou/uL (1.40-6.50); %Basophils 0.7 % (0.0-1.0); %Eosinophils 4.8 % (0.0-10.0); %Lymphocytes 27.2 % (21.0-51.0); %Monocytes 10.2 % (0.0-10.0); %Neutrophils 57.1 % (42.0-75.0); Mean Corpuscular HGB CONC 28.1 g/dL (32.0-36.0); Mean Corpuscular Hemoglobin 23.3 pg (27.0-31.0); Mean Corpuscular Volume 82.9 fL (78.0-98.0); Mean Platelet Volume 7.4 fL (7.4-10.4); Platelet Count 268 thou/uL (130-400); RBC Distribution Width 13.5 % (11.5-14.5); White Blood Cell (WBC) Count 9.8 thou/uL (4.8-10.8)
[2018-11-28 15:10] LABS: Albumin 3.5 g/dL (3.5-5.0); Anion Gap 13 mmol/L (10-20); BUN (Urea Nitrogen) 21 mg/dL (9.8-20.1); Bilirubin, Total 0.3 mg/dL (0.2-1.2); Calc. Creatinine Clearance 15 mL/min (70-130); Calcium 8.8 mg/dL (7.8-10.44); Carbon Dioxide 30 mmol/L (22-29); Chloride 99 mmol/L (98-107); Estimated GFR-MDRD 9; Globulin 3.9 g/dL (2.4-3.5); Glucose 109 mg/dL (70-105); Potassium 4.4 mmol/L (3.5-5.1); Protein, Total 7.4 g/dL (6.0-8.3); Sodium 138 mmol/L (136-145)
[2018-11-28 15:11] LABS: ALT (SGPT) 10 U/L (8-55); AST (SGOT) 14 U/L (5-34); Alkaline Phosphatase 67 U/L (40-150)
--- NOTE | 2018-11-28 19:07 | PRG ---
DATE OF SERVICE: 11/28/2018 SUBJECTIVE: The patient was seen and examined, seems to be doing very well, ready to go home. Noted with the following vital signs. OBJECTIVE: VITAL SIGNS: Afebrile, temperature 97.5, pulse 73, respiratory rate of 16, and O2 saturations 93% with blood pressure 130/80. HEENT: Unremarkable. Moist oral mucosa. NECK: Supple. No conjunctival injection or icterus. CARDIOVASCULAR SYSTEM: First and second heart sounds were heard. RESPIRATORY SYSTEM: Clear to auscultation. DIGESTIVE SYSTEM: Revealed a benign abdomen. Positive bowel sounds. EXTREMITIES: No peripheral edema. SKIN: No new gross rash. LYMPHATICS: No peripheral lymphadenopathy. IMPRESSION: 1. End-stage renal disease, on hemodialysis. 2. Hematuria. 3. Anemia status post blood transfusion. PLAN: 1. From the Renal standpoint, the patient is good for discharge. 2. Further management will be dependent on the clinical course. Job ID: [id number]
== END 2018-11-28 13:54 | DRG 668 ==
LOC: ERS 21:57 → ERHOLD 11-19 04:30 → ONC 11-19 15:05
PROVIDERS: ADMIT Internal Medicine; ATTEND Internal Medicine
PROC: 0T5B8ZZ Destruction of Bladder, Via Natural or Artificial Opening Endoscopic (ICD-10-PCS; principal; 2018-11-22)
PROC: 0TCB8ZZ Extirpation of Matter from Bladder, Via Natural or Artificial Opening Endoscopic (ICD-10-PCS; 2018-11-22)
PROC: BT141ZZ Fluoroscopy of Kidneys, Ureters and Bladder using Low Osmolar Contrast (ICD-10-PCS; 2018-11-22)
PROC: 0UJH8ZZ Inspection of Vagina and Cul-de-sac, Via Natural or Artificial Opening Endoscopic (ICD-10-PCS; 2018-11-22)
DX: D49.4 Neoplasm of unspecified behavior of bladder (principal); N18.6 End stage renal disease; I12.0 Hypertensive chronic kidney disease with stage 5 chronic kidney disease or end stage renal disease; I69.351 Hemiplegia and hemiparesis following cerebral infarction affecting right dominant side; D62 Acute posthemorrhagic anemia; N30.91 Cystitis, unspecified with hematuria; E78.5 Hyperlipidemia, unspecified; D63.1 Anemia in chronic kidney disease; R33.9 Retention of urine, unspecified; E66.9 Obesity, unspecified; Z99.2 Dependence on renal dialysis; Z87.440 Personal history of urinary (tract) infections; Z90.710 Acquired absence of both cervix and uterus; Z90.49 Acquired absence of other specified parts of digestive tract; Z98.51 Tubal ligation status; Z68.37 Body mass index [BMI] 37.0-37.9, adult
CPT/HCPCS: 36415; 36430; 36556; 51702; 74420; 80048; 80053; 83690; 85025; 86140; 86850; 86900; 86901; 87040; 87086; 87340; 88307; 90935; 93005; 93010; C1758; C1769; G0257; J0696; J1100; J2001; J2270; J2405; J2550; J2704; J3010; J3490; P9016; Q0162; Q9961

== ENCOUNTER 2025-03-31 19:35 | Emergency (ER) | payer MEDICARE, OTHER ==
[2025-03-31 21:26] LABS: Hematocrit 31.0 % (36.0-47.0); Hemoglobin 8.8 g/dL (12.0-16.0); Mean Corpuscular Hemoglobin 21.8 pg (27.0-31.0); Mean Corpuscular Volume 76.9 fL (78.0-98.0); Red Blood Cell (RBC) Count 4.03 mill/uL (4.20-5.40); White Blood Cell (WBC) Count 8.56 10x3/uL (4.8-10.8)
[2025-03-31 21:27] LABS: #Basophils 0.13 10x3/uL (0.0-0.2); #Eosinophils 0.28 10x3/uL (0.0-0.7); #Monocytes 1.04 10x3/uL (0.11-0.59); #Neutrophils 4.93 10x3/uL (1.40-6.50); %Basophils 1.5 % (0.0-1.0); %Eosinophils 3.3 % (0.0-10.0); %Lymphocytes 24.9 % (21.0-51.0); %Monocytes 12.1 % (0.0-10.0); %Neutrophils 57.6 % (42.0-75.0); Platelet Count 395 10x3/uL (130-400)
[2025-03-31 21:37] LABS: INR-International Normal Ratio 1.2; Prothrombin Time 15.2 sec (12.0-14.7)
[2025-03-31 21:38] LABS: PTT 39.0 sec (22.9-36.1)
[2025-03-31 21:48] LABS: ALT (SGPT) Less than 7 U/L (Less than 34); AST (SGOT) 48 U/L (11-34); Albumin 2.7 g/dL (3.1-4.5); Alkaline Phosphatase 63 U/L (40-110); Anion Gap 19 mmol/L (10-20); BUN (Urea Nitrogen) 16 mg/dL (9.8-20.1); Bilirubin, Total 0.2 mg/dL (0.3-1.2); Calc. Creatinine Clearance 0 mL/min (70-130); Calcium 9.3 mg/dL (7.8-10.44); Carbon Dioxide 29 mmol/L (23-31); Chloride 96 mmol/L (98-107); Globulin 6.3 g/dL (2.4-3.5); Glucose 128 mg/dL (80-115); Potassium 3.5 mmol/L (3.5-5.1); Sodium 140 mmol/L (136-145)
== END 2025-04-01 00:35 ==
LOC: ERS 19:35
DX: N95.0 Postmenopausal bleeding (principal); I25.2 Old myocardial infarction; I12.9 Hypertensive chronic kidney disease with stage 1 through stage 4 chronic kidney disease, or unspecified chronic kidney disease; N18.6 End stage renal disease; Z86.73 Personal history of transient ischemic attack (TIA), and cerebral infarction without residual deficits; Z99.2 Dependence on renal dialysis
CPT/HCPCS: 76856; 80053; 85025; 85610; 85730; 86850; 86900; 86901